=== PATIENT | female | born 1935 | race Caucasian/White ===

== ENCOUNTER 2019-06-09 21:43 | Inpatient (IN) | payer BC ==
[2019-06-09] MEDS ORDERED: CLINDAMYCIN 600MG PREMIX IVPB 600 MG/50 ML BAG IVPB ONE (22:45)
--- NOTE | 2019-06-09 22:50 | PDOC ---
History of Present Illness - General Chief Complaint: Injury Stated Complaint: LEG INJURY Time Seen by Provider: 06/09/19 21:59 - History of Present Illness Initial Comments: Ms. Abbasi is a 84 y/o female with PMH significant for a-fib (on xarelto) and CHF presenting today with bruising and redness of the right calf. Reports that she was sitting on her recliner when knocked over a heavy pyrex bowl filled with cereal around 1pm this afternoon. Reports that the bowel hit her on the medial tibia and again on the medial mid calf. Reports a small bruise to the medial aspect of the skin overlying the upper tibia, and a large bruise over the medial mid right calf. Reports that the bruise was growing throughout the afternoon, and in the evening she noticed that her right leg was red from the midfoot throughout the calf. Reports that yesterday her right leg appeared the same as her left leg. Denies fever, reports chills yesterday evening. Denies chest pain/shortness of breath. Denies abdominal pain. Denies urinary symptoms. Denies changes in stool. Ambulating at baseline. Past History - Past Medical History Allergies/Adverse Reactions: Allergies Allergy/AdvReac Type Severity Reaction Status Date / Time No Known Allergies Allergy Verified 06/09/19 21:46 Home Medications: Ambulatory Orders Rivaroxaban [Xarelto] 20 mg PO DAILY #0 tablet 10/19/11 Atorvastatin Ca [Lipitor] 20 mg PO HS 06/10/19 Clotrimazole 1 applic TP DAILY 06/10/19 Furosemide 40 mg PO DAILY 06/10/19 Potassium Chloride 20 meq PO DAILY 06/10/19 Anemia: No Asthma: No Cancer: Yes (LEFT BREAST) Cardiac Disorders: Yes ([place]) CVA: No COPD: No CHF: Yes Dementia: No Diabetes: No GI Disorders: No Disorders: No HTN: Yes Hypercholesterolemia: Yes Liver Disease: No Seizures: No Thyroid Disease: No - Surgical History Abdominal Surgery: No Appendectomy: Yes Cardiac Surgery: No Cholecystectomy: Yes Lung Surgery: No Neurologic Surgery: No Orthopedic Surgery: No - Immunization History Td Vaccination: No Immunization Up to Date: Yes - Psycho Social/Smoking Cessation Hx Smoking Status: No Smoking History: Never smoked Have you smoked in the past 12 months: No Number of Cigarettes Smoked Daily: 0 Information on smoking cessation initiated: No Hx Alcohol Use: No Drug/Substance Use Hx: No Substance Use Type: None Hx Substance Use Treatment: No Review of Systems - Review of Systems Comments:: GENERAL/CONSTITUTIONAL: No fever or chills. No weakness._ HEAD, EYES, EARS, NOSE AND THROAT: No change in vision. No change in hearing. No sore throat._ CARDIOVASCULAR: No chest pain or shortness of breath_ RESPIRATORY: Denies cough, hemoptysis_ GASTROINTESTINAL: No nausea, vomiting, diarrhea or constipation._ GENITOURINARY: No dysuria, frequency, or change in urination._ MUSCULOSKELETAL: Redness, bruising, and pain to the RLE. SKIN: No rash_ NEUROLOGIC: No headache, vertigo, loss of consciousness, or change in strength/ sensation._ ENDOCRINE: No increased thirst. No abnormal weight change_ HEMATOLOGIC/LYMPHATIC: No anemia, easy bleeding, or history of blood clots._ ALLERGIC/IMMUNOLOGIC: No hives or skin allergy._ *Physical Exam - Vital Signs Last Vital Signs Temp Pulse Resp BP Pulse Ox 97.6 F 71 18 122/60 99 06/09/19 21:46 06/09/19 21:46 06/09/19 21:46 06/09/19 21:46 06/09/19 21:46 - Physical Exam Comments: GENERAL: Awake, alert, and oriented to person/place/time, in no acute distress_ HEAD: No signs of trauma, normocephalic, atraumatic _ EYES: PERRLA, EOMI, sclera anicteric, conjunctiva clear_ ENT: Hearing grossly normal, nares patent, oropharynx clear without exudates. No uvular deviation. Moist mucosa_ NECK: Normal ROM, supple, no lymphadenopathy, JVD, or masses_ LUNGS: No distress, speaks in full sentences, clear to auscultation bilaterally _ HEART: Irregular, normal S1 and S2, no murmurs appreciated, peripheral pulses normal and equal bilaterally._ ABDOMEN: Soft, nontender, normoactive bowel sounds. No guarding, no rebound. No masses_ EXTREMITIES: RUE/LUE/LLE: Normal inspection, Normal range of motion. No clubbing or cyanosis. 1+ pitting edema in LLE. RLE: Inspection: Small ecchymosis < 1 cm over right lower knee. Large ecchymosis measuring approx. 6 cm by 4 cm over right medial aspect of thigh. TTP throughout extremity. no open wounds. Compartments soft and compressible, pain within proportion. Knee stable to anterior/posterior drawer and varus/valgus stress Sensation: SPLT DP, SP, Tib, Arcenio, Saph Motor: 5/5 EHL, 5/5 FHL, 5/5 TA, 5/5GS, 5/5 Quad, 5/5 Ham Vascular: 2+ DP/PT, all toes BCR <2 sec NEUROLOGICAL: Cranial nerves II through XII grossly intact. Normal speech, ambulating at baseline, no focal sensorimotor deficits _ SKIN: Erythema and swelling over RLE. ED Treatment Course - LABORATORY CBC & Chemistry Diagram: 06/11/19 07:15 06/11/19 07:15 - RADIOLOGY Radiology Studies Ordered: Category Date Time Status ANKLE & FOOT-RIGHT* [RAD] Stat Radiology 06/09/19 22:35 Ordered CHEST X-RAY PORTABLE* [RAD] Stat Radiology 06/09/19 22:33 Ordered KNEE 3 POS-RIGHT [RAD] Stat Radiology 06/09/19 22:35 Ordered LEG TIB/FIB-RIGHT [RAD] Stat Radiology 06/09/19 22:35 Ordered SOFT TISSUE EXTREMITY US [US] Stat Ultrasound 06/09/19 22:34 Ordered Medical Decision Making - Medical Decision Making 06/09/19 22:47 84F hx of a-fib (xarelto) and CHF. Presenting with bruising and erythema to the RLE. DDX includes cellulitis vs stasis dematitis vs gas gangrene. -cbc, cmp, coags -blood cx, wound cx -ekg, cxr for admission -XR right knee, tib/fib, ankle, foot -US RLE -clindamycin 600 06/09/19 23:49 US RLE shows a 3.9 cm x 1.3 cm x 3.2 cm heterogeneous collection in the right medial calf. Depending upon the clinical situation, this could represent blood, fluid/debris , purulent material/infection, or a combination thereof. 06/10/19 0115 EKG shows a-fib, 67 bpm, no ST elevation/depression, no axis deviation, QTc 431. 06/10/19 01:43 Self read of XR right knee, tib/fib, ankle/foot shows soft tissue swelling w/o bony involvement. 06/10/19 0200 D/w the hospitalist who agrees to accept the patient for admission. Discharge - Discharge Information Problems reviewed: Yes Clinical Impression/Diagnosis: Cellulitis of right leg Condition: Stable - Admission Yes - Follow up/Referral - Patient Discharge Instructions - Post Discharge Activity
--- NOTE | 2019-06-09 23:47 | PDOC ---
Documentation entered by Ye Sharp SCRIBE, acting as scribe for Heron Bhandari MD. Heron Bhandari MD: This documentation has been prepared by the Aron phipps Daniel, SCRIBE, under my direction and personally reviewed by me in its entirety. I confirm that the documentation accurately reflects all work, treatment, procedures, and medical decision making performed by me. Attending Attestation - Resident Resident Name: Blaine Becker - ED Attending Attestation I have performed the following: I have examined & evaluated the patient, The case was reviewed & discussed with the resident, I agree w/resident's findings & plan, Exceptions are as noted - HPI HPI: 06/09/19 22:34 The patient is an 84 year old female with a past medical history of afib ( xarelto) and CHF here today for evaluation of right leg bruising and edema. The patient reports that she dropped a pyrex bowl on her right leg today and noticed increased edema, warmth, and redness to that leg throughout the course of the day. Patient denies headache, lightheadedness. Denies fever, chills. Denies chest pain, shortness of breath. Denies nausea, vomiting, diarrhea, abdominal pain. Allergies: NKA PCP: Wade Martinez - Physicial Exam PE: 06/09/19 22:35 Vitals: Triage vital signs reviewed General Appearance: No acute distress, well nourished, well developed Head: Atraumatic Cardiac: Regular rate and rhythm, no murmurs, no rubs, no gallops Lungs: Clear to auscultation bilateral, good air movement bilaterally Abdomen: Soft, nondistended, nontender to palpation Extremities: Full range of motion to all extremities, no cyanosis, clubbing, or edema Skin: +redness, bruising, warmth, and edema to medial aspect of the right calf. Psych: Normal mood, normal affect 06/09/19 23:46 - Medical Decision Making 06/09/19 22:38 The patient is an 84 year old female with a past medical history of afib ( xarelto) and CHF here today for evaluation of right leg bruising and edema. 06/09/19 23:46 Patient is a she is in the operating call the operative follow-up to the OR patient with direct trauma to the lower extremity with bruising ecchymosis and redness warmth concerning for rapidly evolving cellulitis Patient unable to bear weight lives by herself not a safe discharge home will admit to hospital for IV antibiotics and further management
[2019-06-10 00:36] LABS: BASO % 0.2 % (0-2.0); EOS % 0.2 % (0-4.5); HEMATOCRIT 43.6 % (32.4-45.2); HEMOGLOBIN 14.7 GM/dL (10.7-15.3); LYMPH % 16.9 % (8-40); MCH 32.6 pg (25.7-33.7); MCHC 33.8 g/dl (32.0-36.0); MEAN CELL VOLUME 96.4 fl (80-96); MEAN PLT VOLUME 8.5 fl (7.5-11.1); MONO % 14.4 % (3.8-10.2); NEUT % 68.3 % (42.8-82.8); PLATELET COUNT 194 K/MM3 (134-434); RBC 4.52 M/mm3 (3.60-5.2); RDW 13.1 % (11.6-15.6); WHITE BLOOD COUNT 10.4 K/mm3 (4.0-10.0)
[2019-06-10 00:42] LABS: INR 3.32 (0.83-1.09); PROTHROMBIN TIME (PATIENT) 39.7 SEC (9.7-13.0)
--- NOTE | 2019-06-10 02:38 | HP ---
Admitting History and Physical - Primary Care Physician PCP: Dr. Strange - Admission Chief Complaint: Right Leg injury History of Present Illness: 84 year old female with PMHx HTN, HLD, A-fib (on xarelto) and CHF arrived to ER for bruising/hematoma and redness of the right leg. Patient reports that she was sitting on her recliner when knocked over a heavy pyrex bowl filled with cereal around 1pm this afternoon. Reports that the bowel hit her on the medial tibia and again on the medial mid calf. Reports a small bruise to the medial aspect of the skin overlying the upper tibia, and a large bruise over the medial mid right calf. Reports that the bruise was growing throughout the afternoon, and in the evening she noticed that her right leg was red from the midfoot throughout the calf. Reports that yesterday her right leg appeared the same as her left leg. Patient denies fever, reports chills yesterday evening. Denies chest pain/shortness of breath. Denies abdominal pain. Denies urinary symptoms. Denies changes in stool. Ambulating at baseline. History Source: Patient Limitations to Obtaining History: No Limitations - Past Medical History Cardiovascular: Yes: AFIB, CHF, HTN, Hyperlipdemia - Past Surgical History Past Surgical History: Yes: Appendectomy, Cholecystectomy - Smoking History Smoking history: Never smoked Have you smoked in the past 12 months: No Aproximately how many cigarettes per day: 0 - Alcohol/Substance Use Hx Alcohol Use: No History of Substance Use: reports: None - Social History ADL: Independent History of Recent Travel: No Home Medications - Allergies Allergies/Adverse Reactions: Allergies Allergy/AdvReac Type Severity Reaction Status Date / Time No Known Allergies Allergy Verified 06/09/19 21:46 - Home Medications Home Medications: Ambulatory Orders Rivaroxaban [Xarelto] 20 mg PO DAILY #0 tablet 10/19/11 Atorvastatin Ca [Lipitor] 20 mg PO HS 06/10/19 Clotrimazole 1 applic TP DAILY 06/10/19 Furosemide 40 mg PO DAILY 06/10/19 Potassium Chloride 20 meq PO DAILY 06/10/19 Family Medical History Family History: Denies Review of Systems - Review of Systems Constitutional: reports: No Symptoms Eyes: reports: No Symptoms HENT: reports: No Symptoms Neck: reports: No Symptoms Cardiovascular: reports: No Symptoms Respiratory: reports: No Symptoms Gastrointestinal: reports: No Symptoms Genitourinary: reports: No Symptoms Musculoskeletal: reports: Extremity Pain (Redness, bruising, and pain to the RLE.) Integumentary: reports: Erythema (Redness, bruising, and pain to the RLE.) Neurological: reports: No Symptoms Endocrine: reports: No Symptoms Hematology/Lymphatic: reports: No Symptoms Psychiatric: reports: No Symptoms Physical Examination Vital Signs: Vital Signs Temperature 97.6 F 06/09/19 21:46 Pulse Rate 71 06/09/19 21:46 Respiratory Rate 18 06/09/19 21:46 Blood Pressure 122/60 06/09/19 21:46 O2 Sat by Pulse Oximetry (%) 99 06/09/19 21:46 Constitutional: Yes: No Distress, Calm Eyes: Yes: Conjunctiva Clear, EOM Intact HENT: Yes: Atraumatic, Normocephalic Neck: Yes: Supple, Trachea Midline Cardiovascular: Yes: Regular Rate and Rhythm Respiratory: Yes: Regular, CTA Bilaterally Gastrointestinal: Yes: Normal Bowel Sounds, Soft Musculoskeletal: Yes: WNL Extremities: Yes: Other (Small ecchymosis < 1 cm over right lower knee. Large ecchymosis measuring approx. 6 cm by 4 cm over right medial aspect of thigh. TTP throughout extremity. no open wounds. Compartments soft and compressible, pain within proportion.) Edema: Yes Edema: LLE: 1+, RLE: 1+ Peripheral Pulses WNL: Yes Neurological: Yes: Alert, Oriented Labs: CBC, BMP 06/09/19 23:10 06/09/19 23:10 Imaging - Results Ultrasound: Report Reviewed (US RLE shows a 3.9 cm x 1.3 cm x 3.2 cm heterogeneous collection in the right medial calf.Depending upon the clinical situation, this could represent blood, fluid/debris, purulent material/ infection, or a combination) Problem List - Problems (1) Cellulitis of right leg Code(s): L03.115 - CELLULITIS OF RIGHT LOWER LIMB (2) Hematoma of right lower extremity Code(s): S80.11XA - CONTUSION OF RIGHT LOWER LEG, INITIAL ENCOUNTER (3) HTN (hypertension) Code(s): I10 - ESSENTIAL (PRIMARY) HYPERTENSION (4) CHF (congestive heart failure) Code(s): I50.9 - HEART FAILURE, UNSPECIFIED (5) A-fib Code(s): I48.91 - UNSPECIFIED ATRIAL FIBRILLATION (6) HLD (hyperlipidemia) Code(s): E78.5 - HYPERLIPIDEMIA, UNSPECIFIED Assessment/Plan 84 year old female with PMHx HTN, HLD, A-fib (on xarelto) and CHF arrived to ER for bruising/hematoma and redness of the right leg. # cellulitits # right lower leg hematoma - wcb: 10.4 - US RLE shows a 3.9 cm x 1.3 cm x 3.2 cm heterogeneous collection in the right medial calf.Depending upon the clinical situation, this could represent blood, fluid/debris, purulent material/infection, or a combination - XR Ankle/ foot: no acute fx - XR knee/tib/fib: no acute fx - In ED given clindamycin x1, will continue - Pain management - elevated extremity - follow up wound, blood cx - follow up ID # HTN/HLD - Hyzaar 50-12.5 Tablet 1 each PO DAILY - Metoprolol Succinate 50 mg PO BID - monitor BP # A-fib - Rivaroxaban 20 mg PO DAILY # CHF - fluid restriction - monitor I&O - no meds listed, follow up pharmacy in AM to verify Diet: HOLLIE/NCS Visit type - Emergency Visit Emergency Visit: Yes ED Registration Date: 06/10/19 Care time: The patient presented to the Emergency Department on the above date and was hospitalized for further evaluation of their emergent condition. - New Patient This patient is new to me today: Yes Date on this admission: 06/10/19 - Critical Care Critical Care patient: No
[2019-06-10 04:14] LABS: ALBUMIN 3.2 g/dl (3.4-5.0); BILIRUBIN,TOTAL 0.7 mg/dL (0.2-1); BLOOD UREA NITROGEN 19.1 mg/dL (7-18); CALCIUM 8.6 mg/dL (8.5-10.1); CREATININE 0.9 mg/dL (0.55-1.3); POTASSIUM 3.9 mmol/L (3.5-5.1); TOT PROT 6.3 g/dl (6.4-8.2)
[2019-06-10] MEDS ORDERED: DICLOFENAC SODIUM 75 MG TABLET.DR PO SCH (07:00)
[2019-06-10] MEDS ORDERED: CLINDAMYCIN 300 MG PREMIX IVPB 300 MG/50 ML BAG IVPB SCH (10:00)
[2019-06-10] MEDS ORDERED: HEPARIN NA (PORCINE) 5,000 UNITS/ML 1ML VIAL SQ SCH (10:00)
[2019-06-10] MEDS ORDERED: LOSARTAN 50MG/HCTZ 12.5MG 1 TAB (FP) PO SCH (10:00)
[2019-06-10] MEDS: SENNOSIDES 8.6MG TABLET (FP) PO SCH ×2 (10:39→22:01)
[2019-06-10] MEDS ORDERED: LOSARTAN POTASSIUM 50 MG TABLET (FP) PO SCH (10:45)
[2019-06-10] MEDS: oxyCODONE HCL 5 MG TABLET PO PRN (10:48)
[2019-06-10] MEDS ORDERED: HYDROCHLOROTHIAZIDE 12.5 MG CAPSULE (FP) PO SCH (11:00)
[2019-06-10] MEDS ORDERED: INSULIN (NOVOLOG) ASPART 100 UNITS/ML 10ML VIAL ONE (11:47)
--- NOTE | 2019-06-10 12:29 | PN ---
Progress Note, Physician History of Present Illness: pt seen/ examined chart reviewed wake/ comfortable wants to see cardiology-- says did not see > 2 years denies cp/sob denies abd pain - Current Medication List Current Medications: Active Medications Acetaminophen (Tylenol -) 650 mg PO Q4H PRN PRN Reason: PAIN LEVEL 1-5 Furosemide (Lasix -) 40 mg PO DAILY [facility] Clindamycin Phosphate (Cleocin 300 Mg Premix Ivpb) 300 mg in 50 mls @ 100 mls/ hr IVPB Q8H-IV [facility] Last Admin: 06/10/19 11:37 Dose: 100 mls/hr Metoprolol Succinate (Toprol Xl -) 50 mg PO BID [facility] Last Admin: 06/10/19 10:40 Dose: 50 mg Oxycodone HCl (Roxicodone -) 10 mg PO Q6H PRN PRN Reason: PAIN LEVEL 6-10 Last Admin: 06/10/19 10:48 Dose: 10 mg Rivaroxaban (Xarelto) 20 mg PO DAILY@1800 [facility] Senna (Senna -) 1 tab PO BID [facility] Last Admin: 06/10/19 10:39 Dose: 1 tab - Objective Vital Signs: Vital Signs Temperature 97.6 F 06/09/19 21:46 Pulse Rate 77 06/10/19 04:37 Respiratory Rate 18 06/10/19 04:37 Blood Pressure 130/69 06/10/19 04:37 O2 Sat by Pulse Oximetry (%) 99 06/10/19 04:37 Constitutional: Yes: No Distress, Obese Eyes: Yes: Conjunctiva Clear Neck: Yes: Supple Cardiovascular: Yes: Pulse Irregular Respiratory: Yes: Diminished Gastrointestinal: Yes: Abdomen, Obese Extremities: Yes: Erythema Neurological: Yes: Alert Labs: CBC, BMP 06/09/19 23:10 06/10/19 03:28 INR, PTT INR 3.32 (0.83-1.09) H 06/09/19 23:10 Problem List - Problems (1) Cellulitis of right leg Assessment/Plan: abx Problems reviewed: Yes Code(s): L03.115 - CELLULITIS OF RIGHT LOWER LIMB (2) HLD (hyperlipidemia) Assessment/Plan: Not on meds monitor Code(s): E78.5 - HYPERLIPIDEMIA, UNSPECIFIED (3) HTN (hypertension) Assessment/Plan: pt says and meds reviewed takes lasix 40 mg daily Toprol xl 20 mg daily Dont take Losartan and Hctz-- Monitor Problems reviewed: Yes Code(s): I10 - ESSENTIAL (PRIMARY) HYPERTENSION (4) Hematoma of right lower extremity Problems reviewed: Yes Code(s): S80.11XA - CONTUSION OF RIGHT LOWER LEG, INITIAL ENCOUNTER Qualifiers: Encounter type: initial encounter Qualified Code(s): S80.11XA - Contusion of right lower leg, initial encounter (5) CHF (congestive heart failure) Assessment/Plan: stable wants to see cardiology-- requested Problems reviewed: Yes Code(s): I50.9 - HEART FAILURE, UNSPECIFIED (6) A-fib Assessment/Plan: On xarelto Problems reviewed: Yes Code(s): I48.91 - UNSPECIFIED ATRIAL FIBRILLATION Qualifiers: Atrial fibrillation type: unspecified chronic Qualified Code(s): I48.20 - Chronic atrial fibrillation, unspecified; I48.2 - Chronic atrial fibrillation
--- NOTE | 2019-06-10 12:57 | CON.ID ---
Consult Consult Specialty:: infectious diseases Referred by:: Alexandr Reason for Consultation:: cellulitis of the leg - History of Present Illness Chief Complaint: pain ,swelling and redness of the leg History of Present Illness: 84 year old female with PMHx HTN, HLD, A-fib (on xarelto) and CHF arrived to ER for bruising/hematoma and redness of the right leg. Patient reports that she was sitting on her recliner when knocked over a heavy pyrex bowl filled with cereal around 1pm this afternoon. Reports that the bowel hit her on the medial tibia and again on the medial mid calf. Reports a small bruise to the medial aspect of the skin overlying the upper tibia, and a large bruise over the medial mid right calf. Reports that the bruise was growing throughout the afternoon, and in the evening she noticed that her right leg was red from the midfoot throughout the calf. Reports that yesterday her right leg appeared the same as her left leg. Patient denies fever, reports chills yesterday evening. Denies chest pain/shortness of breath. Denies abdominal pain. Denies urinary symptoms. Denies changes in stool. Ambulating at baseline. patient also mentions that her legs weep - History Source History Provided By: Patient Limitations to Obtaining History: No Limitations - Past Medical History Cardio/Vascular: Yes: AFIB, CHF, HTN, Hyperlipdemia - Past Surgical History Past Surgical History: Yes: Appendectomy, Cholecystectomy - Alcohol/Substance Use Hx Alcohol Use: No History of Substance Use: reports: None - Smoking History Smoking history: Never smoked Have you smoked in the past 12 months: No Aproximately how many cigarettes per day: 0 - Social History ADL: Independent History of Recent Travel: No Home Medications - Allergies Allergies/Adverse Reactions: Allergies Allergy/AdvReac Type Severity Reaction Status Date / Time No Known Allergies Allergy Verified 06/09/19 21:46 - Home Medications Home Medications: Ambulatory Orders Rivaroxaban [Xarelto] 20 mg PO DAILY #0 tablet 10/19/11 Atorvastatin Ca [Lipitor] 20 mg PO HS 06/10/19 Clotrimazole 1 applic TP DAILY 06/10/19 Furosemide 40 mg PO DAILY 06/10/19 Potassium Chloride 20 meq PO DAILY 06/10/19 Review of Systems - Review of Systems Constitutional: reports: No Symptoms Eyes: reports: No Symptoms HENT: reports: No Symptoms Neck: reports: No Symptoms Cardiovascular: reports: No Symptoms Respiratory: reports: No Symptoms Gastrointestinal: reports: No Symptoms Genitourinary: reports: No Symptoms Integumentary: reports: Bruising, Change in Color, Erythema Neurological: reports: No Symptoms Endocrine: reports: No Symptoms Hematology/Lymphatic: reports: No Symptoms Psychiatric: reports: No Symptoms Physical Exam Vital Signs: Vital Signs Temperature 97.6 F 06/09/19 21:46 Pulse Rate 77 06/10/19 04:37 Respiratory Rate 18 06/10/19 04:37 Blood Pressure 130/69 06/10/19 04:37 O2 Sat by Pulse Oximetry (%) 99 06/10/19 04:37 Constitutional: Yes: Well Nourished, Mild Distress, Obese Eyes: Yes: Conjunctiva Clear HENT: Yes: Atraumatic, Normocephalic Neck: Yes: Supple, Trachea Midline Cardiovascular: Yes: Pulse Irregular Respiratory: Yes: Regular, CTA Bilaterally Gastrointestinal: Yes: Normal Bowel Sounds, Soft Musculoskeletal: Yes: WNL Extremities: Yes: Erythema, Other (hematoma of the leg) Integumentary: Yes: Bruising, Erythema, Other Neurological: Yes: Alert, Oriented Psychiatric: Yes: Alert, Oriented Labs: CBC, BMP 06/09/19 23:10 06/10/19 03:28 Imaging - Results Chest X-ray: Report Reviewed, Image Reviewed X-ray: Report Reviewed, Image Reviewed Ultrasound: Report Reviewed, Image Reviewed Assessment/Plan Problem List - Problems (1) Cellulitis of right leg Problems reviewed: Yes Code(s): L03.115 - CELLULITIS OF RIGHT LOWER LIMB (2) HLD (hyperlipidemia) Code(s): E78.5 - HYPERLIPIDEMIA, UNSPECIFIED (3) HTN (hypertension) Problems reviewed: Yes Code(s): I10 - ESSENTIAL (PRIMARY) HYPERTENSION (4) Hematoma of right lower extremity Problems reviewed: Yes Code(s): S80.11XA - CONTUSION OF RIGHT LOWER LEG, INITIAL ENCOUNTER Qualifiers: Encounter type: initial encounter Qualified Code(s): S80.11XA - Contusion of right lower leg, initial encounter (5) CHF (congestive heart failure) Problems reviewed: Yes Code(s): I50.9 - HEART FAILURE, UNSPECIFIED (6) A-fib Code(s): I48.91 - UNSPECIFIED ATRIAL FIBRILLATION Qualifiers: Atrial fibrillation type: unspecified chronic Qualified Code(s): I48.20 - Chronic atrial fibrillation, unspecified; I48.2 - Chronic atrial fibrillation plan i am going to hold abx and monitor as i think reaction to the injury will d.w the team if leg becomes worse will start iv elevation of leg might need aspiration
--- NOTE | 2019-06-10 16:58 | EKG ---
Test Reason : Blood Pressure : / mmHG Vent. Rate : 067 BPM Atrial Rate : 120 BPM P-R Int : 000 ms QRS Dur : 070 ms QT Int : 408 ms P-R-T Axes : 000 000 -17 degrees QTc Int : 431 ms ATRIAL FIBRILLATION NONSPECIFIC ST ABNORMALITY ABNORMAL ECG WHEN COMPARED WITH ECG OF 28-DEC-2011 11:57, CRITERIA FOR SEPTAL INFARCT ARE NO LONGER PRESENT Confirmed by MJ TSAI MD ([id number]) on 06/10/2019 4:57:50 PM Referred By: Confirmed By:MJ TSAI MD
[2019-06-10] MEDS: RIVAROXABAN 20 MG TABLET PO SCH (17:27)
--- NOTE | 2019-06-10 21:35 | PN ---
Progress Note, Physician - Current Medication List Current Medications: Active Medications Acetaminophen (Tylenol -) 650 mg PO Q4H PRN PRN Reason: PAIN LEVEL 1-5 Furosemide (Lasix -) 40 mg PO DAILY [facility] Metoprolol Succinate (Toprol Xl -) 50 mg PO BID [facility] Last Admin: 06/10/19 10:40 Dose: 50 mg Oxycodone HCl (Roxicodone -) 10 mg PO Q6H PRN PRN Reason: PAIN LEVEL 6-10 Last Admin: 06/10/19 10:48 Dose: 10 mg Rivaroxaban (Xarelto) 20 mg PO DAILY@1800 [facility] Last Admin: 06/10/19 17:27 Dose: 20 mg Senna (Senna -) 1 tab PO BID [facility] Last Admin: 06/10/19 10:39 Dose: 1 tab - Objective Vital Signs: Vital Signs Temperature 98.6 F 06/10/19 15:18 Pulse Rate 87 06/10/19 15:18 Respiratory Rate 16 06/10/19 10:00 Blood Pressure 112/63 06/10/19 15:18 O2 Sat by Pulse Oximetry (%) 99 06/10/19 04:37 Labs: CBC, BMP 06/09/19 23:10 06/10/19 03:28 INR, PTT INR 3.32 (0.83-1.09) H 06/09/19 23:10
--- NOTE | 2019-06-10 21:36 | CON.CARD ---
Consult Consult Specialty:: cardiology Reason for Consultation:: [place]; wants to see her perfumer (Dr. Meadows); has not seen him in 2 years. - History of Present Illness Chief Complaint: Pt A&OX3; no cheat pain or dyspnea; pain at site of right LE trauma History of Present Illness: Ms. Abbasi is a 84 y/o white female with PMH significant for a-fib (on carvedilol, xarelto) diastolic CHF (2012 ECHO), HTN, hyperlipidemia, obesity, sedentary lifestyle, anxiety, presenting today with bruising and redness of the right calf. Reports that she was sitting on her recliner when knocked over a heavy pyrex bowl filled with cereal around 1pm this afternoon. Reports that the bowel hit her on the medial tibia and again on the medial mid calf. Reports a small bruise to the medial aspect of the skin overlying the upper tibia, and a large bruise over the medial mid right calf. Reports that the bruise was growing throughout the afternoon, and in the evening she noticed that her right leg was red from the midfoot throughout the calf. Reports that yesterday her right leg appeared the same as her left leg. - History Source History Provided By: Patient, Medical Record Limitations to Obtaining History: No Limitations - Past Medical History Cardio/Vascular: Yes: AFIB, CHF, HTN, Hyperlipdemia Pulmonary: No: Asthma Reproductive: Yes: Postmenopausal ...: No - Past Surgical History Past Surgical History: Yes: Appendectomy, Cholecystectomy - Alcohol/Substance Use Hx Alcohol Use: No History of Substance Use: reports: None - Smoking History Smoking history: Never smoked Have you smoked in the past 12 months: No Aproximately how many cigarettes per day: 0 - Social History ADL: Independent History of Recent Travel: No Home Medications - Allergies Allergies/Adverse Reactions: Allergies Allergy/AdvReac Type Severity Reaction Status Date / Time No Known Allergies Allergy Verified 06/09/19 21:46 - Home Medications Home Medications: Ambulatory Orders Rivaroxaban [Xarelto] 20 mg PO DAILY #0 tablet 10/19/11 Atorvastatin Ca [Lipitor] 20 mg PO HS 06/10/19 Clotrimazole 1 applic TP DAILY 06/10/19 Furosemide 40 mg PO DAILY 06/10/19 Potassium Chloride 20 meq PO DAILY 06/10/19 Family Medical History Family History: Denies Review of Systems - Review of Systems Constitutional: reports: Weakness Eyes: reports: No Symptoms HENT: reports: No Symptoms Neck: reports: No Symptoms Cardiovascular: reports: No Symptoms Respiratory: reports: SOB on Exertion Gastrointestinal: reports: No Symptoms Genitourinary: reports: No Symptoms Breasts: reports: No Symptoms Reported Musculoskeletal: reports: Muscle Pain Integumentary: reports: Wound Neurological: reports: No Symptoms Endocrine: reports: No Symptoms Hematology/Lymphatic: reports: No Symptoms Psychiatric: reports: Anxiety - Risk Factors Known Risk Factors: Yes: Hypercholesterolemia, Hypertension, Physical Inactivity , Other (AF) Vital Signs: Vital Signs Temperature 98.6 F 06/10/19 15:18 Pulse Rate 87 06/10/19 15:18 Respiratory Rate 16 06/10/19 10:00 Blood Pressure 112/63 06/10/19 15:18 O2 Sat by Pulse Oximetry (%) 99 06/10/19 04:37 Constitutional: Yes: Obese Eyes: Yes: WNL HENT: Yes: WNL Neck: Yes: WNL Respiratory: Yes: WNL Gastrointestinal: Yes: WNL Renal/: No: Anuria Cardiovascular: Yes: Pulse Irregular JVD: No Carotid Bruit: No PMI: Non-Displaced Heart Sounds: Yes: S1 (varies in intensity) Murmur: Yes: Systolic Murmur, Grade 1 Musculoskeletal: Yes: Muscle Pain Extremities: Yes: Cool Edema: Yes Peripheral Pulses WNL: Yes Integumentary: Yes: Bruising Neurological: Yes: WNL Psychiatric: Yes: Alert, Oriented, Other (anxious) - Other Data Labs, Other Data: CBC, BMP 06/09/19 23:10 06/10/19 03:28 INR, PTT INR 3.32 (0.83-1.09) H 06/09/19 23:10 Imaging - Results Chest X-ray: Image Reviewed Cat Scan: Image Reviewed EKG: Image Reviewed Problem List - Problems (1) Obesity Code(s): E66.9 - OBESITY, UNSPECIFIED (2) Sedentary lifestyle Code(s): Z91.89 - [facility] PERSONAL RISK FACTORS, NOT ELSEWHERE CLASSIFIED (3) A-fib Assessment/Plan: On metoprolol ER for HR control. On rivaroxaban for anticoagulation. ECHO pending. Now with hematoma of RLE due to trauma (heavy bowl fell on her leg). Code(s): I48.91 - UNSPECIFIED ATRIAL FIBRILLATION Qualifiers: Atrial fibrillation type: unspecified chronic Qualified Code(s): I48.20 - Chronic atrial fibrillation, unspecified; I48.2 - Chronic atrial fibrillation (4) CHF (congestive heart failure) Assessment/Plan: ECHO pending for LVEF. Dyspnea on exertion; sedentary; obese. On metoprolol ER and furosemide. F/u BUN/Cr, electrolytes, daily weight, Is and Os. Pt will f/u with Dr. Meadows, whom she has not seen in 2 years. Code(s): I50.9 - HEART FAILURE, UNSPECIFIED (5) Cellulitis of right leg Code(s): L03.115 - CELLULITIS OF RIGHT LOWER LIMB (6) HLD (hyperlipidemia) Code(s): E78.5 - HYPERLIPIDEMIA, UNSPECIFIED (7) HTN (hypertension) Code(s): I10 - ESSENTIAL (PRIMARY) HYPERTENSION (8) Hematoma of right lower extremity Code(s): S80.11XA - CONTUSION OF RIGHT LOWER LEG, INITIAL ENCOUNTER Qualifiers: Encounter type: initial encounter Qualified Code(s): S80.11XA - Contusion of right lower leg, initial encounter (9) Anxiety Code(s): F41.9 - ANXIETY DISORDER, UNSPECIFIED
[2019-06-10] MEDS: ACETAMINOPHEN 325 MG TABLET (FP) PO PRN (22:02)
[2019-06-11 08:22] LABS: BASO % 0.3 % (0-2.0); EOS % 0.6 % (0-4.5); HEMATOCRIT 38.8 % (32.4-45.2); LYMPH % 27.4 % (8-40); MCH 32.7 pg (25.7-33.7); MCHC 33.5 g/dl (32.0-36.0); MEAN CELL VOLUME 97.3 fl (80-96); MEAN PLT VOLUME 8.4 fl (7.5-11.1); MONO % 12.9 % (3.8-10.2); NEUT % 58.8 % (42.8-82.8); PLATELET COUNT 188 K/MM3 (134-434); RBC 3.98 M/mm3 (3.60-5.2); RDW 12.8 % (11.6-15.6)
[2019-06-11 08:46] LABS: CHOLESTEROL 180 mg/dL (50-200); HDL CHOLESTEROL 57 mg/dL (40-60); LDL CHOLESTEROL (ONLY SJRH) 97 mg/dL (5-100); TRIGLYCERIDES 94 mg/dL (0-150)
[2019-06-11 08:53] LABS: BILIRUBIN,TOTAL 0.4 mg/dL (0.2-1); BLOOD UREA NITROGEN 19.4 mg/dL (7-18); CALCIUM 8.8 mg/dL (8.5-10.1); CREATININE 0.8 mg/dL (0.55-1.3); POTASSIUM 4.3 mmol/L (3.5-5.1); TOT PROT 6.2 g/dl (6.4-8.2)
[2019-06-11] MEDS: ACETAMINOPHEN 325 MG TABLET (FP) PO PRN ×2 (10:09→18:25)
[2019-06-11] MEDS: SENNOSIDES 8.6MG TABLET (FP) PO SCH ×2 (10:10→21:17)
[2019-06-11] MEDS: FUROSEMIDE 40 MG TABLET (FP) PO SCH (10:10)
--- NOTE | 2019-06-11 10:57 | PN ---
Progress Note, Physician History of Present Illness: stable leg looks better - Current Medication List Current Medications: Active Medications Acetaminophen (Tylenol -) 650 mg PO Q4H PRN PRN Reason: PAIN LEVEL 1-5 Last Admin: 06/11/19 10:09 Dose: 650 mg Furosemide (Lasix -) 40 mg PO DAILY [facility] Last Admin: 06/11/19 10:10 Dose: 40 mg Metoprolol Succinate (Toprol Xl -) 50 mg PO BID [facility] Last Admin: 06/11/19 10:10 Dose: 50 mg Oxycodone HCl (Roxicodone -) 10 mg PO Q6H PRN PRN Reason: PAIN LEVEL 6-10 Last Admin: 06/10/19 10:48 Dose: 10 mg Rivaroxaban (Xarelto) 20 mg PO DAILY@1800 [facility] Last Admin: 06/10/19 17:27 Dose: 20 mg Senna (Senna -) 1 tab PO BID [facility] Last Admin: 06/11/19 10:10 Dose: 1 tab - Objective Vital Signs: Vital Signs Temperature 97.9 F 06/11/19 09:58 Pulse Rate 78 06/11/19 09:58 Respiratory Rate 19 06/11/19 09:58 Blood Pressure 134/73 06/11/19 09:58 O2 Sat by Pulse Oximetry (%) 94 L 06/11/19 09:00 Constitutional: Yes: No Distress, Calm Cardiovascular: Yes: S1, S2 Respiratory: Yes: Regular, CTA Bilaterally Gastrointestinal: Yes: Normal Bowel Sounds, Soft Musculoskeletal: Yes: WNL Extremities: Yes: Other (hematoma of the leg) Neurological: Yes: Alert, Oriented Psychiatric: Yes: Alert, Oriented Labs: CBC, BMP 06/11/19 07:15 06/11/19 07:15 INR, PTT INR 3.32 (0.83-1.09) H 06/09/19 23:10 Assessment/Plan Problem List - Problems (1) Cellulitis of right leg Problems reviewed: Yes Code(s): L03.115 - CELLULITIS OF RIGHT LOWER LIMB (2) HLD (hyperlipidemia) Code(s): E78.5 - HYPERLIPIDEMIA, UNSPECIFIED (3) HTN (hypertension) Problems reviewed: Yes Code(s): I10 - ESSENTIAL (PRIMARY) HYPERTENSION (4) Hematoma of right lower extremity Problems reviewed: Yes Code(s): S80.11XA - CONTUSION OF RIGHT LOWER LEG, INITIAL ENCOUNTER Qualifiers: Encounter type: initial encounter Qualified Code(s): S80.11XA - Contusion of right lower leg, initial encounter (5) CHF (congestive heart failure) Problems reviewed: Yes Code(s): I50.9 - HEART FAILURE, UNSPECIFIED (6) A-fib Code(s): I48.91 - UNSPECIFIED ATRIAL FIBRILLATION Qualifiers: Atrial fibrillation type: unspecified chronic Qualified Code(s): I48.20 - Chronic atrial fibrillation, unspecified; I48.2 - Chronic atrial fibrillation plan continue current mgmt elevation of the leg
--- NOTE | 2019-06-11 11:26 | PN ---
Progress Note, Physician History of Present Illness: Right tender ashley hematoma, denies dyspnea, orthopnea, chest pain, palpitations. - Current Medication List Current Medications: Active Medications Acetaminophen (Tylenol -) 650 mg PO Q4H PRN PRN Reason: PAIN LEVEL 1-5 Last Admin: 06/11/19 10:09 Dose: 650 mg Furosemide (Lasix -) 40 mg PO DAILY [facility] Last Admin: 06/11/19 10:10 Dose: 40 mg Metoprolol Succinate (Toprol Xl -) 50 mg PO BID [facility] Last Admin: 06/11/19 10:10 Dose: 50 mg Oxycodone HCl (Roxicodone -) 10 mg PO Q6H PRN PRN Reason: PAIN LEVEL 6-10 Last Admin: 06/10/19 10:48 Dose: 10 mg Rivaroxaban (Xarelto) 20 mg PO DAILY@1800 [facility] Last Admin: 06/10/19 17:27 Dose: 20 mg Senna (Senna -) 1 tab PO BID [facility] Last Admin: 06/11/19 10:10 Dose: 1 tab - Objective Vital Signs: Vital Signs Temperature 97.9 F 06/11/19 09:58 Pulse Rate 78 06/11/19 09:58 Respiratory Rate 19 06/11/19 09:58 Blood Pressure 134/73 06/11/19 09:58 O2 Sat by Pulse Oximetry (%) 94 L 06/11/19 09:00 Constitutional: Yes: No Distress, Calm Neck: Yes: Supple Cardiovascular: Yes: Pulse Irregular Respiratory: Yes: Regular, CTA Bilaterally Gastrointestinal: Yes: Normal Bowel Sounds, Soft, Abdomen, Obese Edema: No Integumentary: Yes: Bruising (RLE) Labs: CBC, BMP 06/11/19 07:15 06/11/19 07:15 INR, PTT INR 3.32 (0.83-1.09) H 06/09/19 23:10 Assessment/Plan - Problems (1) Obesity Code(s): E66.9 - OBESITY, UNSPECIFIED (2) Sedentary lifestyle Code(s): Z91.89 - [facility] PERSONAL RISK FACTORS, NOT ELSEWHERE CLASSIFIED (3) A-fib Assessment/Plan: On metoprolol ER 50 bid for HR control. On rivaroxaban 20 qd for anticoagulation. ECHO pending. Now with hematoma of RLE due to trauma (heavy bowl fell on her leg). Code(s): I48.91 - UNSPECIFIED ATRIAL FIBRILLATION Qualifiers: Atrial fibrillation type: unspecified chronic Qualified Code(s): I48.20 - Chronic atrial fibrillation, unspecified; I48.2 - Chronic atrial fibrillation (4) CHF (congestive heart failure) Assessment/Plan: ECHO pending for LVEF. Dyspnea on exertion; sedentary; obese. On metoprolol ER 50 bid and furosemide 40 qd. F/u BUN/Cr, electrolytes, daily weight, Is and Os. Pt will f/u with Dr. Meadows, whom she has not seen in 2 years. Code(s): I50.9 - HEART FAILURE, UNSPECIFIED (5) Cellulitis of right leg Code(s): L03.115 - CELLULITIS OF RIGHT LOWER LIMB D/renee empiric course of clindamycin (6) HLD (hyperlipidemia) Code(s): E78.5 - HYPERLIPIDEMIA, UNSPECIFIED (7) HTN (hypertension) Code(s): I10 - ESSENTIAL (PRIMARY) HYPERTENSION (8) Hematoma of right lower extremity Code(s): S80.11XA - CONTUSION OF RIGHT LOWER LEG, INITIAL ENCOUNTER Qualifiers: Encounter type: initial encounter Qualified Code(s): S80.11XA - Contusion of right lower leg, initial encounter (9) Anxiety Code(s): F41.9 - ANXIETY DISORDER, UNSPECIFIED
--- NOTE | 2019-06-11 15:01 | PN ---
Progress Note, Physician History of Present Illness: pt seen/ examined chart reviewed/ all consults noted Awake/ comfortable feels better denies cp/sob denies abd pain - Current Medication List Current Medications: Active Medications Acetaminophen (Tylenol -) 650 mg PO Q4H PRN PRN Reason: PAIN LEVEL 1-5 Last Admin: 06/11/19 10:09 Dose: 650 mg Furosemide (Lasix -) 40 mg PO DAILY [facility] Last Admin: 06/11/19 10:10 Dose: 40 mg Metoprolol Succinate (Toprol Xl -) 50 mg PO BID [facility] Last Admin: 06/11/19 10:10 Dose: 50 mg Oxycodone HCl (Roxicodone -) 10 mg PO Q6H PRN PRN Reason: PAIN LEVEL 6-10 Last Admin: 06/10/19 10:48 Dose: 10 mg Rivaroxaban (Xarelto) 20 mg PO DAILY@1800 [facility] Last Admin: 06/10/19 17:27 Dose: 20 mg Senna (Senna -) 1 tab PO BID [facility] Last Admin: 06/11/19 10:10 Dose: 1 tab - Objective Vital Signs: Vital Signs Temperature 98.5 F 06/11/19 13:31 Pulse Rate 78 06/11/19 13:31 Respiratory Rate 18 06/11/19 13:31 Blood Pressure 114/70 06/11/19 13:31 O2 Sat by Pulse Oximetry (%) 94 L 06/11/19 09:00 Constitutional: Yes: No Distress, Calm, Obese Eyes: Yes: Conjunctiva Clear Neck: Yes: Supple Cardiovascular: Yes: Pulse Irregular Respiratory: Yes: Diminished Gastrointestinal: Yes: Soft, Abdomen, Obese Edema: RLE: 2+ (rle-- erythema/ induration/ swelling +) Peripheral Pulses WNL: Yes Neurological: Yes: Alert Labs: CBC, BMP 06/11/19 07:15 06/11/19 07:15 INR, PTT INR 3.32 (0.83-1.09) H 06/09/19 23:10 Problem List - Problems (1) Cellulitis of right leg Assessment/Plan: abx -- d/c ed by i/d may need i/d will consult surgery also. Problems reviewed: Yes Code(s): L03.115 - CELLULITIS OF RIGHT LOWER LIMB (2) HLD (hyperlipidemia) Assessment/Plan: Lipid profile -ok Problems reviewed: Yes Code(s): E78.5 - HYPERLIPIDEMIA, UNSPECIFIED (3) HTN (hypertension) Assessment/Plan: Monitor Problems reviewed: Yes Code(s): I10 - ESSENTIAL (PRIMARY) HYPERTENSION (4) Hematoma of right lower extremity Problems reviewed: Yes Code(s): S80.11XA - CONTUSION OF RIGHT LOWER LEG, INITIAL ENCOUNTER Qualifiers: Encounter type: initial encounter Qualified Code(s): S80.11XA - Contusion of right lower leg, initial encounter (5) CHF (congestive heart failure) Assessment/Plan: Cardiology following Echo Code(s): I50.9 - HEART FAILURE, UNSPECIFIED (6) A-fib Problems reviewed: Yes Code(s): I48.91 - UNSPECIFIED ATRIAL FIBRILLATION Qualifiers: Atrial fibrillation type: unspecified chronic Qualified Code(s): I48.20 - Chronic atrial fibrillation, unspecified; I48.2 - Chronic atrial fibrillation
--- NOTE | 2019-06-11 16:27 | ECHO ---
Name: CHACHO, MAIDA A Exam:Adult Echocardiogram Study Date: 06/11/2019 03:22 PM Age: 84 yrs BP: 3/ mmHg MMode/2D Measurements & Calculations RV S Emanuel: 8.2 cm/sec Doppler Measurements & Calculations Ao V2 max: 102.3 cm/sec LV V1 max P.4 mmHg Ao max P.2 mmHg LV V1 max: 77.0 cm/sec PA V2 max: 117.0 cm/sec PA max P.5 mmHg Procedure A complete two-dimensional transthoracic echocardiogram was performed (2D, M-mode, Doppler and color flow Doppler). Severely limimed study. Left Ventricle The left ventricle is normal in size. Left ventricular systolic function is normal. Ejection Fraction = 55- 60%. No regional wall motion abnormalities noted. Right Ventricle The right ventricle is not well visualized. Atria LA appears enlarged on apical 4 chamber view. Right atrium not well visualized. Mitral Valve The mitral valve is normal in structure and function. There is mild mitral regurgitation. Tricuspid Valve The tricuspid valve is normal in structure and function. There is mild tricuspid regurgitation. Aortic Valve There is mild aortic sclerosis.;. Mild aortic regurgitation. Pulmonic Valve The pulmonic valve is not well visualized. Great Vessels The aortic root is normal size. Pericardium/Pleura There is no pericardial effusion. Interpretation Summary Severely limimed study The left ventricle is normal in size. Left ventricular systolic function is normal. No regional wall motion abnormalities noted. Ejection Fraction = 55-60%. The right ventricle is not well visualized. LA appears enlarged on apical 4 chamber view There is mild mitral regurgitation. There is mild tricuspid regurgitation. Mild aortic regurgitation. There is mild aortic sclerosis. There is no pericardial effusion. García Velásquez MD 06/11/2019 04:27 PM
[2019-06-11] MEDS: RIVAROXABAN 20 MG TABLET PO SCH (18:27)
[2019-06-12] MEDS: ACETAMINOPHEN 325 MG TABLET (FP) PO PRN ×3 (06:59→18:47)
[2019-06-12] MEDS ORDERED: PT OWN MED DRAWER 7, Y5N ONE (08:53)
[2019-06-12] MEDS: oxyCODONE HCL 5 MG TABLET PO PRN ×2 (10:26→18:48)
[2019-06-12] MEDS: FUROSEMIDE 40 MG TABLET (FP) PO SCH (10:27)
[2019-06-12] MEDS: SENNOSIDES 8.6MG TABLET (FP) PO SCH ×3 (10:27→21:52)
--- NOTE | 2019-06-12 10:27 | PN ---
Progress Note, Physician Chief Complaint: Events noted Feeling better History of Present Illness: Patient was seen and examined. Awake and alert. Chart was reviewed Denies chest pain or palpitations - Current Medication List Current Medications: Active Medications Acetaminophen (Tylenol -) 650 mg PO Q4H PRN PRN Reason: PAIN LEVEL 1-5 Last Admin: 06/12/19 06:59 Dose: 650 mg Furosemide (Lasix -) 40 mg PO DAILY [facility] Last Admin: 06/11/19 10:10 Dose: 40 mg Metoprolol Succinate (Toprol Xl -) 50 mg PO BID [facility] Last Admin: 06/11/19 21:17 Dose: 50 mg Oxycodone HCl (Roxicodone -) 10 mg PO Q6H PRN PRN Reason: PAIN LEVEL 6-10 Last Admin: 06/10/19 10:48 Dose: 10 mg Rivaroxaban (Xarelto) 20 mg PO DAILY@1800 [facility] Last Admin: 06/11/19 18:27 Dose: 20 mg Senna (Senna -) 1 tab PO BID [facility] Last Admin: 06/11/19 21:17 Dose: Not Given - Objective Vital Signs: Vital Signs Temperature 98.2 F 06/12/19 09:52 Pulse Rate 75 06/12/19 09:52 Respiratory Rate 18 06/12/19 09:52 Blood Pressure 145/85 06/12/19 09:52 O2 Sat by Pulse Oximetry (%) 93 L 06/12/19 09:00 Eyes: Yes: PERRL HENT: Yes: Atraumatic Neck: Yes: Supple Cardiovascular: Yes: Pulse Irregular, S1, S2 Respiratory: Yes: Diminished Gastrointestinal: Yes: Normal Bowel Sounds, Soft. No: Tenderness Edema: No Labs: CBC, BMP 06/11/19 07:15 06/11/19 07:15 INR, PTT INR 3.32 (0.83-1.09) H 06/09/19 23:10 Problem List - Problems (1) A-fib Code(s): I48.91 - UNSPECIFIED ATRIAL FIBRILLATION Qualifiers: Atrial fibrillation type: unspecified chronic Qualified Code(s): I48.20 - Chronic atrial fibrillation, unspecified; I48.2 - Chronic atrial fibrillation (2) CHF (congestive heart failure) Code(s): I50.9 - HEART FAILURE, UNSPECIFIED (3) Cellulitis of right leg Code(s): L03.115 - CELLULITIS OF RIGHT LOWER LIMB (4) HLD (hyperlipidemia) Code(s): E78.5 - HYPERLIPIDEMIA, UNSPECIFIED (5) HTN (hypertension) Code(s): I10 - ESSENTIAL (PRIMARY) HYPERTENSION (6) Hematoma of right lower extremity Code(s): S80.11XA - CONTUSION OF RIGHT LOWER LEG, INITIAL ENCOUNTER Qualifiers: Encounter type: initial encounter Qualified Code(s): S80.11XA - Contusion of right lower leg, initial encounter Assessment/Plan 1. Persistent AF on DOAC/Xarelto 2. Acute on chronic LV diastolic failure 3. HTN 4. Hypercholesterolemia 5. Cellulitis and hematoma right leg/calf PLAN: 1. Continue Metoprolol ER 50 mg BID as tolerated 2. Continue Xarelto 20 mg QD with caution 3. Continue diuretics and monitor renal function and electrolytes 4. Antibiotic coverage 5. Wound care 6. Eventually follow up with Dr. Cain in the office when discharged García Velásquez MD
--- NOTE | 2019-06-12 12:37 | PN ---
Progress Note, Physician History of Present Illness: stable no new issues leg redness looks better - Current Medication List Current Medications: Active Medications Acetaminophen (Tylenol -) 650 mg PO Q4H PRN PRN Reason: PAIN LEVEL 1-5 Last Admin: 06/12/19 10:25 Dose: 650 mg Furosemide (Lasix -) 40 mg PO DAILY [facility] Last Admin: 06/12/19 10:27 Dose: 40 mg Metoprolol Succinate (Toprol Xl -) 50 mg PO BID [facility] Last Admin: 06/12/19 10:27 Dose: 50 mg Oxycodone HCl (Roxicodone -) 10 mg PO Q6H PRN PRN Reason: PAIN LEVEL 6-10 Last Admin: 06/12/19 10:26 Dose: 10 mg Rivaroxaban (Xarelto) 20 mg PO DAILY@1800 [facility] Last Admin: 06/11/19 18:27 Dose: 20 mg Senna (Senna -) 1 tab PO BID [facility] Last Admin: 06/12/19 10:27 Dose: 1 tab - Objective Vital Signs: Vital Signs Temperature 98.2 F 06/12/19 09:52 Pulse Rate 75 06/12/19 09:52 Respiratory Rate 18 06/12/19 09:52 Blood Pressure 145/85 06/12/19 09:52 O2 Sat by Pulse Oximetry (%) 93 L 06/12/19 09:00 Constitutional: Yes: No Distress, Calm Cardiovascular: Yes: S1, S2 Respiratory: Yes: Regular, CTA Bilaterally Gastrointestinal: Yes: Normal Bowel Sounds, Soft Musculoskeletal: Yes: WNL Extremities: Yes: Erythema (improving), Other (hematoma) Neurological: Yes: Alert, Oriented Psychiatric: Yes: Alert, Oriented Labs: CBC, BMP 06/11/19 07:15 06/11/19 07:15 INR, PTT INR 3.32 (0.83-1.09) H 06/09/19 23:10 Assessment/Plan Problem List - Problems (1) Cellulitis of right leg Problems reviewed: Yes Code(s): L03.115 - CELLULITIS OF RIGHT LOWER LIMB (2) HLD (hyperlipidemia) Code(s): E78.5 - HYPERLIPIDEMIA, UNSPECIFIED (3) HTN (hypertension) Problems reviewed: Yes Code(s): I10 - ESSENTIAL (PRIMARY) HYPERTENSION (4) Hematoma of right lower extremity Problems reviewed: Yes Code(s): S80.11XA - CONTUSION OF RIGHT LOWER LEG, INITIAL ENCOUNTER Qualifiers: Encounter type: initial encounter Qualified Code(s): S80.11XA - Contusion of right lower leg, initial encounter (5) CHF (congestive heart failure) Problems reviewed: Yes Code(s): I50.9 - HEART FAILURE, UNSPECIFIED (6) A-fib Code(s): I48.91 - UNSPECIFIED ATRIAL FIBRILLATION Qualifiers: Atrial fibrillation type: unspecified chronic Qualified Code(s): I48.20 - Chronic atrial fibrillation, unspecified; I48.2 - Chronic atrial fibrillation plan continue current mgmt elevation of the leg physio await for final plan
[2019-06-12] MEDS ORDERED: guaiFENesin 200 MG/10 ML 10 ML UNIT-DOSE CUPS PO PRN (13:37)
[2019-06-12] MEDS ORDERED: MEROPENEM 1 GM VIAL (RESTRICTED TO ID) IVPB ONE ×2 (14:08→15:50)
[2019-06-12] MEDS ORDERED: DEXTROSE 5%-WATER 100 ML IVPB ONE ×2 (14:08→15:50)
[2019-06-12] MEDS: MEROPENEM 1 GM in DEXTROSE 5%-WATER 100 ML IVPB SCH ×2 (14:25→17:37)
--- NOTE | 2019-06-12 14:36 | CONSULT ---
- Consultation REQUESTING PROVIDER: CONSULT REQUEST: We have been asked to surgically evaluate this patient for right LE hematoma PCP:Sergo Strange HISTORY OF PRESENT ILLNESS: Ms. Abbasi is a 84 y/o female with PMH significant for a-fib (on xarelto) and CHF presenting today with bruising and redness of the right calf. Reports that she was sitting on her recliner when knocked over a heavy pyrex bowl filled with cereal on Tuesday afternoon. Reports that the bowel hit her on the medial tibia and again on the medial mid calf. Patient reports that a large bruise began growing throughout the afternoon , and in the evening she noticed that her right leg was red from the midfoot throughout the calf. Denies fever,chest pain/shortness of breath abdominal pain. She does limited ambulation with her walker at home 2/2 deconditioning. Past History CHF AFib HTN CAD Allergies/Adverse Reactions: Allergies Allergy/AdvReac Type Severity Reaction Status Date / Time No Known Allergies Allergy Verified 06/09/19 21:46 Home Medications: Ambulatory Orders Rivaroxaban [Xarelto] 20 mg PO DAILY #0 tablet 10/19/11 Atorvastatin Ca [Lipitor] 20 mg PO HS 06/10/19 Clotrimazole 1 applic TP DAILY 06/10/19 Furosemide 40 mg PO DAILY 06/10/19 Potassium Chloride 20 meq PO DAILY 06/10/19 Anemia: No Asthma: No Cancer: Yes (LEFT BREAST) Cardiac Disorders: Yes ([place]) CVA: No COPD: No CHF: Yes Dementia: No Diabetes: No GI Disorders: No Disorders: No HTN: Yes Hypercholesterolemia: Yes Liver Disease: No Seizures: No Thyroid Disease: No - Surgical History Abdominal Surgery: No Appendectomy: Yes Cardiac Surgery: No Cholecystectomy: Yes Lung Surgery: No Neurologic Surgery: No Orthopedic Surgery: No - Immunization History Td Vaccination: No Immunization Up to Date: Yes - Psycho Social/Smoking Cessation Hx Smoking Status: No Smoking History: Never smoked Have you smoked in the past 12 months: No Number of Cigarettes Smoked Daily: 0 Information on smoking cessation initiated: No Hx Alcohol Use: No Drug/Substance Use Hx: No Substance Use Type: None Hx Substance Use Treatment: No Review of Systems - Review of Systems Comments:: GENERAL/CONSTITUTIONAL: No fever or chills. No weakness._ HEAD, EYES, EARS, NOSE AND THROAT: No change in vision. No change in hearing. No sore throat._ CARDIOVASCULAR: No chest pain or shortness of breath_ RESPIRATORY: Denies cough, hemoptysis_ GASTROINTESTINAL: No nausea, vomiting, diarrhea or constipation._ GENITOURINARY: No dysuria, frequency, or change in urination._ MUSCULOSKELETAL: + Redness, bruising, and pain to the RLE. SKIN: No rash_ NEUROLOGIC: No headache, vertigo, loss of consciousness, or change in strength/ sensation._ ENDOCRINE: No increased thirst. No abnormal weight change_ HEMATOLOGIC/LYMPHATIC: No anemia, easy bleeding, or history of blood clots._ ALLERGIC/IMMUNOLOGIC: No hives or skin allergy._ *Physical Exam Vital Signs Temp 98.7 F 06/12/19 13:27 Pulse 84 06/12/19 13:27 Resp 18 06/12/19 13:27 BP 141/99 06/12/19 13:27 Pulse Ox 93 L 06/12/19 09:00 Intake & Output 06/11/19 06/12/19 06/12/19 23:59 11:59 23:59 Intake Total 100 Balance 100 Weight 224 lb 8 oz Intake: Oral 100 Other: Voiding Method Bedpan Incontinent # Unmeasured Voids Void 2 Bowel Movement Yes No Weight Measurement Method Built in Bedscale CBC, BMP 06/11/19 07:15 06/11/19 07:15 - Physical Exam GENERAL: A&Ox3, NAD EYES: sclera anicteric, conjunctiva clear_ LUNGS:Unlabored resp on RA EXTREMITIES: RUE/LUE/LLE: Normal inspection, Normal range of motion. No clubbing or cyanosis. 1+ pitting edema in LLE. RLE: chronic skin changes throughout, Large flucutuant hematoma measuring approx. 5cm by 3cm over distal 3rd right medial aspect of the calf. No evidence of sinus of open skin. Eccyhmosis extends circumstantially with mild erythema at inferior portion just superior to the medial malleolus. TTP throughout extremity. Compartments soft and supple. no other rashes or lesions seen. +2DP and PT pulses. Left LE with some chronic skin changes, no rashes or lesions, compartments soft , supple and non-tender with +2 DP and PT pulses. NEUROLOGICAL: Cranial nerves II through XII grossly intact. Normal speech, Soft tissue Ultrasound Right LE: revealed collection which likely resembles a hematoma Problem List - Problems (1) Hematoma of right lower extremity Assessment/Plan: Patient with hematoma after she sustained a soft tissue injury while on Xarelto. Skin intact and patient states the hemetoma is already improving since the incident occurred on Tuesday. Palpable pulses with no indication for vascular intervention. -Warm compress to right LE hematoma as tolerated -elevate right LE above level of heart while in bed -OOB with walker and PT -Prophylactic abx per med -dose Xarelto to appropriate therapeutic dosing for patient needs. Evaluation and plan discussed with Dr Clement Code(s): S80.11XA - CONTUSION OF RIGHT LOWER LEG, INITIAL ENCOUNTER Qualifiers: Encounter type: initial encounter Qualified Code(s): S80.11XA - Contusion of right lower leg, initial encounter
[2019-06-12] MEDS: PANTOPRAZOLE 40 MG TABLET (FP) PO SCH (16:24)
[2019-06-12] MEDS: NYSTATIN 100,000 UNIT/GM TOPICAL CREAM 15 GM TUBE TP SCH ×2 (16:29→22:30)
[2019-06-12] MEDS: AMOX TR/POT CLAV 500MG/125MG TABLETS (FP) PO SCH (17:31)
[2019-06-12] MEDS: RIVAROXABAN 20 MG TABLET PO SCH (17:31)
[2019-06-12] MEDS ORDERED: RIVAROXABAN 15 MG TABLET PO SCH (20:26)
--- NOTE | 2019-06-12 20:26 | PN ---
Progress Note (short form) - Note Progress Note: Decreased pain in right leg, decreased erythema Has long standing GERD Vital Signs - 24 hr 06/11/19 06/11/19 06/12/19 21:00 21:20 06:05 Temperature 97.6 F Pulse Rate 90 78 Respiratory 20 20 18 Rate Blood Pressure 145/88 143/59 L O2 Sat by Pulse 94 L Oximetry (%) 06/12/19 06/12/19 06/12/19 09:00 09:52 13:27 Temperature 98.2 F 98.7 F Pulse Rate 75 84 Respiratory 18 18 18 Rate Blood Pressure 145/85 141/99 O2 Sat by Pulse 93 L Oximetry (%) Current Medications Generic Name Dose Route Start Last Admin Trade Name Freq PRN Reason Stop Dose Admin Acetaminophen 650 mg 06/10/19 02:56 06/12/19 18:47 Tylenol - PO 650 mg Q4H PRN Administration PAIN LEVEL 1-5 Amoxicillin/Clavulanate Potassium 1 tab 06/12/19 17:30 06/12/19 17:31 Augmentin - 500mg Tablet PO 1 tab BID@0800,1730 NAOMI Administration Furosemide 40 mg 06/11/19 10:00 06/12/19 10:27 Lasix - PO 40 mg DAILY NA[facility] Administration Guaifenesin 10 ml 06/12/19 13:37 06/12/19 16:24 Robitussin - PO 10 ml Q6H PRN Administration COUGH Meropenem 1 gm/ Dextrose 100 mls @ 200 mls/hr 06/12/19 12:45 06/12/19 17:37 IVPB 200 mls/hr Q8H-IV [facility]OM[facility] Administration Metoprolol Succinate 50 mg 06/10/19 10:00 06/12/19 10:27 Toprol Xl - PO 50 mg BID NAOMI Administration Nystatin 1 applic 06/12/19 13:45 06/12/19 16:29 Mycostatin Cream - TP Not Given BID NAOMI Oxycodone HCl 10 mg 06/10/19 02:56 06/12/19 18:48 Roxicodone - PO 10 mg Q6H PRN Administration PAIN LEVEL 6-10 Pantoprazole Sodium 40 mg 06/12/19 13:45 06/12/19 16:24 Protonix - PO 40 mg DAILY NAOMI Administration Rivaroxaban 20 mg 06/10/19 18:00 06/12/19 17:31 Xarelto PO 20 mg DAILY@1800 [facility] Administration Senna 1 tab 06/10/19 10:00 06/12/19 10:27 Senna - PO 1 tab BID NAOMI Administration S1 S2 RRR Lungs clear Abd- soft, NT Edema right leg Hematoma+ Decreased erythema tender PLAN IV antibiotics needs isolation for ESBL Wound eval for hematoma decreasre Xarelto Problem List - Problems (1) A-fib Code(s): I48.91 - UNSPECIFIED ATRIAL FIBRILLATION Qualifiers: Atrial fibrillation type: unspecified chronic Qualified Code(s): I48.20 - Chronic atrial fibrillation, unspecified; I48.2 - Chronic atrial fibrillation (2) Anxiety Code(s): F41.9 - ANXIETY DISORDER, UNSPECIFIED (3) Cellulitis of right leg Code(s): L03.115 - CELLULITIS OF RIGHT LOWER LIMB (4) HLD (hyperlipidemia) Code(s): E78.5 - HYPERLIPIDEMIA, UNSPECIFIED (5) HTN (hypertension) Code(s): I10 - ESSENTIAL (PRIMARY) HYPERTENSION (6) Hematoma of right lower extremity Code(s): S80.11XA - CONTUSION OF RIGHT LOWER LEG, INITIAL ENCOUNTER Qualifiers: Encounter type: initial encounter Qualified Code(s): S80.11XA - Contusion of right lower leg, initial encounter
[2019-06-13] MEDS ORDERED: DEXTROSE 5%-WATER 100 ML IVPB ONE ×3 (02:13→17:30)
[2019-06-13] MEDS ORDERED: MEROPENEM 1 GM VIAL (RESTRICTED TO ID) IVPB ONE ×3 (02:13→17:30)
[2019-06-13] MEDS: MEROPENEM 1 GM in DEXTROSE 5%-WATER 100 ML IVPB SCH ×3 (02:28→17:35)
[2019-06-13] MEDS ORDERED: PT OWN MED DRAWER 7, Y5N ONE ×3 (08:46→17:30)
--- NOTE | 2019-06-13 09:17 | PN ---
Progress Note, Physician History of Present Illness: Right tender ashley hematoma, denies dyspnea, orthopnea, chest pain, palpitations. - Current Medication List Current Medications: Active Medications Acetaminophen (Tylenol -) 650 mg PO Q4H PRN PRN Reason: PAIN LEVEL 1-5 Last Admin: 06/12/19 18:47 Dose: 650 mg Amoxicillin/Clavulanate Potassium (Augmentin - 500mg Tablet) 1 tab PO BID@0800, 1730 [facility] Last Admin: 06/12/19 17:31 Dose: 1 tab Furosemide (Lasix -) 40 mg PO DAILY [facility] Last Admin: 06/12/19 10:27 Dose: 40 mg Guaifenesin (Robitussin -) 10 ml PO Q6H PRN PRN Reason: COUGH Last Admin: 06/12/19 16:24 Dose: 10 ml Meropenem 1 gm/ Dextrose 100 mls @ 200 mls/hr IVPB Q8H-IV [facility] Last Admin: 06/13/19 02:28 Dose: 200 mls/hr Metoprolol Succinate (Toprol Xl -) 50 mg PO BID [facility] Last Admin: 06/12/19 21:48 Dose: 50 mg Nystatin (Mycostatin Cream -) 1 applic TP BID [facility] Last Admin: 06/12/19 22:30 Dose: 1 applic Oxycodone HCl (Roxicodone -) 10 mg PO Q6H PRN PRN Reason: PAIN LEVEL 6-10 Last Admin: 06/12/19 18:48 Dose: 10 mg Pantoprazole Sodium (Protonix -) 40 mg PO DAILY [facility] Last Admin: 06/12/19 16:24 Dose: 40 mg Rivaroxaban (Xarelto) 15 mg PO DAILY@1800 [facility] Senna (Senna -) 1 tab PO BID [facility] Last Admin: 06/12/19 21:52 Dose: Not Given - Objective Vital Signs: Vital Signs Temperature 98.3 F 06/13/19 06:00 Pulse Rate 78 06/13/19 06:00 Respiratory Rate 18 06/13/19 06:00 Blood Pressure 133/82 06/13/19 06:00 O2 Sat by Pulse Oximetry (%) 93 L 06/12/19 21:00 Constitutional: Yes: No Distress, Calm Neck: Yes: Supple Cardiovascular: Yes: Pulse Irregular Respiratory: Yes: Regular, CTA Bilaterally Gastrointestinal: Yes: Normal Bowel Sounds, Soft Edema: No Wound/Incision: Yes: Other (Right ashley hematoma) Labs: CBC, BMP 06/11/19 07:15 06/11/19 07:15 INR, PTT INR 3.32 (0.83-1.09) H 06/09/19 23:10 Assessment/Plan - Problems (1) Obesity Code(s): E66.9 - OBESITY, UNSPECIFIED (2) Sedentary lifestyle Code(s): Z91.89 - OT PERSONAL RISK FACTORS, NOT ELSEWHERE CLASSIFIED (3) A-fib Assessment/Plan: On metoprolol ER 50 bid for HR control. On rivaroxaban 20 qd for anticoagulation. ECHO pending. Now with hematoma of RLE due to trauma (heavy bowl fell on her leg). Code(s): I48.91 - UNSPECIFIED ATRIAL FIBRILLATION Qualifiers: Atrial fibrillation type: unspecified chronic Qualified Code(s): I48.20 - Chronic atrial fibrillation, unspecified; I48.2 - Chronic atrial fibrillation (4) CHF (congestive heart failure) Assessment/Plan: ECHO pending for LVEF. Dyspnea on exertion; sedentary; obese. On metoprolol ER 50 bid and furosemide 40 qd. F/u BUN/Cr, electrolytes, daily weight, Is and Os. Pt will f/u with Dr. Meadows, whom she has not seen in 2 years. Code(s): I50.9 - HEART FAILURE, UNSPECIFIED (5) Cellulitis of right leg Code(s): L03.115 - CELLULITIS OF RIGHT LOWER LIMB On empiric course of meropenum (6) HLD (hyperlipidemia) Code(s): E78.5 - HYPERLIPIDEMIA, UNSPECIFIED (7) HTN (hypertension) Code(s): I10 - ESSENTIAL (PRIMARY) HYPERTENSION (8) Hematoma of right lower extremity Code(s): S80.11XA - CONTUSION OF RIGHT LOWER LEG, INITIAL ENCOUNTER Qualifiers: Encounter type: initial encounter Qualified Code(s): S80.11XA - Contusion of right lower leg, initial encounter (9) Anxiety Code(s): F41.9 - ANXIETY DISORDER, UNSPECIFIED 1. Persistent AF on DOAC/Xarelto 2. Acute on chronic LV diastolic failure 3. HTN 4. Hypercholesterolemia 5. Cellulitis and hematoma right leg/calf PLAN: 1. Continue Metoprolol ER 50 mg BID as tolerated 2. Continue Xarelto 15 mg QD with caution 3. Continue Lasix 40 qd and monitor diuretic response, renal function and electrolytes 4. Antibiotic coverage 5. Wound care 6. Eventually follow up with Dr. Cain in the office when discharged
[2019-06-13] MEDS: PANTOPRAZOLE 40 MG TABLET (FP) PO SCH (09:51)
[2019-06-13] MEDS: FUROSEMIDE 40 MG TABLET (FP) PO SCH (09:51)
[2019-06-13] MEDS: SENNOSIDES 8.6MG TABLET (FP) PO SCH ×2 (09:51→21:53)
[2019-06-13] MEDS: NYSTATIN 100,000 UNIT/GM TOPICAL CREAM 15 GM TUBE TP SCH ×2 (09:52→21:53)
[2019-06-13] MEDS: AMOX TR/POT CLAV 500MG/125MG TABLETS (FP) PO SCH ×2 (11:06→17:35)
--- NOTE | 2019-06-13 11:54 | PN ---
Progress Note (short form) - Note Progress Note: Decreased pain in right leg, decreased erythema occasional coughing Vital Signs - 24 hr 06/12/19 06/12/19 06/13/19 13:27 21:00 01:55 Temperature 98.7 F 98.1 F 98.3 F Pulse Rate 84 89 79 Respiratory 18 20 18 Rate Blood Pressure 141/99 121/65 134/76 O2 Sat by Pulse 93 L Oximetry (%) 06/13/19 06:00 Temperature 98.3 F Pulse Rate 78 Respiratory 18 Rate Blood Pressure 133/82 O2 Sat by Pulse Oximetry (%) Current Medications Generic Name Dose Route Start Last Admin Trade Name Freq PRN Reason Stop Dose Admin Acetaminophen 650 mg 06/10/19 02:56 06/12/19 18:47 Tylenol - PO 650 mg Q4H PRN Administration PAIN LEVEL 1-5 Amoxicillin/Clavulanate Potassium 1 tab 06/12/19 17:30 06/13/19 11:06 Augmentin - 500mg Tablet PO 1 tab BID@0800,1730 [facility] Administration Furosemide 40 mg 06/11/19 10:00 06/13/19 09:51 Lasix - PO 40 mg DAILY [facility] Administration Guaifenesin 10 ml 06/12/19 13:37 06/12/19 16:24 Robitussin - PO 10 ml Q6H PRN Administration COUGH Meropenem 1 gm/ Dextrose 100 mls @ 200 mls/hr 06/12/19 12:45 06/13/19 09:51 IVPB 200 mls/hr Q8H-IV [facility] Administration Metoprolol Succinate 50 mg 06/10/19 10:00 06/13/19 09:51 Toprol Xl - PO 50 mg BID [facility]I Administration Nystatin 1 applic 06/12/19 13:45 06/13/19 09:52 Mycostatin Cream - TP 1 applic BID [facility] Administration Oxycodone HCl 10 mg 06/10/19 02:56 06/12/19 18:48 Roxicodone - PO 10 mg Q6H PRN Administration PAIN LEVEL 6-10 Pantoprazole Sodium 40 mg 06/12/19 13:45 06/13/19 09:51 Protonix - PO 40 mg DAILY [facility] Administration Rivaroxaban 15 mg 06/13/19 18:00 Xarelto PO DAILY@1800 [facility] Senna 1 tab 06/10/19 10:00 06/13/19 09:51 Senna - PO 1 tab BID NAOMI Administration Microbiology 06/09/19 23:10 Blood - Peripheral Venous Blood Culture - Preliminary NO GROWTH OBTAINED AFTER 72 HOURS, INCUBATION TO CONTINUE FOR 2 DAYS. 06/09/19 23:10 Blood - Peripheral Venous Blood Culture - Preliminary NO GROWTH OBTAINED AFTER 72 HOURS, INCUBATION TO CONTINUE FOR 2 DAYS. 06/09/19 23:10 Calf - Right Medial Gram Stain - Final 06/09/19 23:10 Calf - Right Medial Wound Culture - Final Escherichia Coli [employer]bl [employer] Enterococcus Faecalis Staphylococcus Coagulase Neg S1 S2 RRR Lungs clear Abd- soft, NT Edema right leg Hematoma+ decreased size Decreased erythema tender PLAN IV antibiotics needs isolation for ESBL Wound eval for hematoma appreciated continue Xarelto physical therapy Problem List - Problems (1) A-fib Code(s): I48.91 - UNSPECIFIED ATRIAL FIBRILLATION Qualifiers: Atrial fibrillation type: unspecified chronic Qualified Code(s): I48.20 - Chronic atrial fibrillation, unspecified; I48.2 - Chronic atrial fibrillation (2) Anxiety Code(s): F41.9 - ANXIETY DISORDER, UNSPECIFIED (3) Cellulitis of right leg Code(s): L03.115 - CELLULITIS OF RIGHT LOWER LIMB (4) HLD (hyperlipidemia) Code(s): E78.5 - HYPERLIPIDEMIA, UNSPECIFIED (5) HTN (hypertension) Code(s): I10 - ESSENTIAL (PRIMARY) HYPERTENSION (6) Hematoma of right lower extremity Code(s): S80.11XA - CONTUSION OF RIGHT LOWER LEG, INITIAL ENCOUNTER Qualifiers: Encounter type: initial encounter Qualified Code(s): S80.11XA - Contusion of right lower leg, initial encounter
--- NOTE | 2019-06-13 12:25 | PN ---
Progress Note, Physician History of Present Illness: stable no new issues swelling coming down leg looks better - Current Medication List Current Medications: Active Medications Acetaminophen (Tylenol -) 650 mg PO Q4H PRN PRN Reason: PAIN LEVEL 1-5 Last Admin: 06/12/19 18:47 Dose: 650 mg Amoxicillin/Clavulanate Potassium (Augmentin - 500mg Tablet) 1 tab PO BID@0800, 1730 [facility] Last Admin: 06/13/19 11:06 Dose: 1 tab Furosemide (Lasix -) 40 mg PO DAILY [facility] Last Admin: 06/13/19 09:51 Dose: 40 mg Guaifenesin (Robitussin -) 10 ml PO Q6H PRN PRN Reason: COUGH Last Admin: 06/12/19 16:24 Dose: 10 ml Meropenem 1 gm/ Dextrose 100 mls @ 200 mls/hr IVPB Q8H-IV [facility] Last Admin: 06/13/19 09:51 Dose: 200 mls/hr Metoprolol Succinate (Toprol Xl -) 50 mg PO BID [facility] Last Admin: 06/13/19 09:51 Dose: 50 mg Nystatin (Mycostatin Cream -) 1 applic TP BID [facility] Last Admin: 06/13/19 09:52 Dose: 1 applic Oxycodone HCl (Roxicodone -) 10 mg PO Q6H PRN PRN Reason: PAIN LEVEL 6-10 Last Admin: 06/12/19 18:48 Dose: 10 mg Pantoprazole Sodium (Protonix -) 40 mg PO DAILY [facility] Last Admin: 06/13/19 09:51 Dose: 40 mg Rivaroxaban (Xarelto) 15 mg PO DAILY@1800 [facility] Senna (Senna -) 1 tab PO BID [facility] Last Admin: 06/13/19 09:51 Dose: 1 tab - Objective Vital Signs: Vital Signs Temperature 98.3 F 06/13/19 06:00 Pulse Rate 78 06/13/19 06:00 Respiratory Rate 18 06/13/19 06:00 Blood Pressure 133/82 06/13/19 06:00 O2 Sat by Pulse Oximetry (%) 93 L 06/12/19 21:00 Constitutional: Yes: No Distress, Calm Cardiovascular: Yes: S1, S2 Respiratory: Yes: Regular, CTA Bilaterally Gastrointestinal: Yes: Normal Bowel Sounds, Soft Musculoskeletal: Yes: WNL Extremities: Yes: Other Integumentary: Yes: Erythema (improving) Wound/Incision: Yes: Other Neurological: Yes: Alert, Oriented Psychiatric: Yes: Alert, Oriented Labs: CBC, BMP 06/11/19 07:15 06/11/19 07:15 INR, PTT INR 3.32 (0.83-1.09) H 06/09/19 23:10 Assessment/Plan Problem List - Problems (1) Cellulitis of right leg Problems reviewed: Yes Code(s): L03.115 - CELLULITIS OF RIGHT LOWER LIMB (2) HLD (hyperlipidemia) Code(s): E78.5 - HYPERLIPIDEMIA, UNSPECIFIED (3) HTN (hypertension) Problems reviewed: Yes Code(s): I10 - ESSENTIAL (PRIMARY) HYPERTENSION (4) Hematoma of right lower extremity Problems reviewed: Yes Code(s): S80.11XA - CONTUSION OF RIGHT LOWER LEG, INITIAL ENCOUNTER Qualifiers: Encounter type: initial encounter Qualified Code(s): S80.11XA - Contusion of right lower leg, initial encounter (5) CHF (congestive heart failure) Problems reviewed: Yes Code(s): I50.9 - HEART FAILURE, UNSPECIFIED (6) A-fib Code(s): I48.91 - UNSPECIFIED ATRIAL FIBRILLATION Qualifiers: Atrial fibrillation type: unspecified chronic Qualified Code(s): I48.20 - Chronic atrial fibrillation, unspecified; I48.2 - Chronic atrial fibrillation plan continue current mgmt elevation of the leg physio abx rest as per the team
[2019-06-13] MEDS: RIVAROXABAN 15 MG TABLET PO SCH (17:35)
[2019-06-14] MEDS ORDERED: MEROPENEM 1 GM VIAL (RESTRICTED TO ID) IVPB ONE ×3 (01:57→16:34)
[2019-06-14] MEDS ORDERED: DEXTROSE 5%-WATER 100 ML IVPB ONE ×3 (01:58→16:34)
[2019-06-14] MEDS: MEROPENEM 1 GM in DEXTROSE 5%-WATER 100 ML IVPB SCH ×3 (02:01→17:13)
[2019-06-14 07:33] LABS: BASO % 0.6 % (0-2.0); EOS % 0.6 % (0-4.5); HEMATOCRIT 38.9 % (32.4-45.2); HEMOGLOBIN 13.3 GM/dL (10.7-15.3); LYMPH % 21.9 % (8-40); MCH 32.8 pg (25.7-33.7); MCHC 34.2 g/dl (32.0-36.0); MEAN CELL VOLUME 95.9 fl (80-96); MEAN PLT VOLUME 8.1 fl (7.5-11.1); MONO % 14.6 % (3.8-10.2); NEUT % 62.3 % (42.8-82.8); PLATELET COUNT 234 K/MM3 (134-434); RBC 4.05 M/mm3 (3.60-5.2); RDW 12.5 % (11.6-15.6); WHITE BLOOD COUNT 9.8 K/mm3 (4.0-10.0)
[2019-06-14] MEDS ORDERED: PT OWN MED DRAWER 7, Y5N ONE ×2 (07:57→09:37)
[2019-06-14 08:32] LABS: ALBUMIN 2.7 g/dl (3.4-5.0); BILIRUBIN,TOTAL 0.6 mg/dL (0.2-1); BLOOD UREA NITROGEN 21.2 mg/dL (7-18); CALCIUM 8.4 mg/dL (8.5-10.1); CREATININE 0.8 mg/dL (0.55-1.3); POTASSIUM 4.3 mmol/L (3.5-5.1); TOT PROT 6.2 g/dl (6.4-8.2)
[2019-06-14] MEDS: AMOX TR/POT CLAV 500MG/125MG TABLETS (FP) PO SCH ×2 (08:52→17:14)
--- NOTE | 2019-06-14 09:45 | PN ---
Progress Note, Physician History of Present Illness: Right tender ashley hematoma tenderness and erythema improving, denies dyspnea, orthopnea, chest pain, palpitations. - Current Medication List Current Medications: Active Medications Acetaminophen (Tylenol -) 650 mg PO Q4H PRN PRN Reason: PAIN LEVEL 1-5 Last Admin: 06/12/19 18:47 Dose: 650 mg Amoxicillin/Clavulanate Potassium (Augmentin - 500mg Tablet) 1 tab PO BID@0800, 1730 [facility] Last Admin: 06/14/19 08:52 Dose: 1 tab Furosemide (Lasix -) 40 mg PO DAILY [facility] Last Admin: 06/13/19 09:51 Dose: 40 mg Guaifenesin (Robitussin -) 10 ml PO Q6H PRN PRN Reason: COUGH Last Admin: 06/12/19 16:24 Dose: 10 ml Meropenem 1 gm/ Dextrose 100 mls @ 200 mls/hr IVPB Q8H-IV [facility] Last Admin: 06/14/19 02:01 Dose: 200 mls/hr Metoprolol Succinate (Toprol Xl -) 50 mg PO BID [facility] Last Admin: 06/13/19 21:53 Dose: 50 mg Nystatin (Mycostatin Cream -) 1 applic TP BID [facility] Last Admin: 06/13/19 21:53 Dose: 1 applic Oxycodone HCl (Roxicodone -) 10 mg PO Q6H PRN PRN Reason: PAIN LEVEL 6-10 Last Admin: 06/12/19 18:48 Dose: 10 mg Pantoprazole Sodium (Protonix -) 40 mg PO DAILY [facility] Last Admin: 06/13/19 09:51 Dose: 40 mg Rivaroxaban (Xarelto) 15 mg PO DAILY@1800 [facility] Last Admin: 06/13/19 17:35 Dose: 15 mg Senna (Senna -) 1 tab PO BID [facility] Last Admin: 06/13/19 21:53 Dose: 1 tab - Objective Vital Signs: Vital Signs Temperature 98.1 F 06/14/19 06:00 Pulse Rate 77 06/14/19 06:00 Respiratory Rate 18 06/14/19 06:00 Blood Pressure 135/70 06/14/19 06:00 O2 Sat by Pulse Oximetry (%) 95 06/13/19 21:00 Constitutional: Yes: No Distress, Calm, Thin Neck: Yes: Supple Cardiovascular: Yes: Pulse Irregular Respiratory: Yes: Regular, CTA Bilaterally Gastrointestinal: Yes: Normal Bowel Sounds, Soft Edema: No Integumentary: Yes: Other (Right hematoma) Labs: CBC, BMP 06/14/19 06:20 06/14/19 06:20 INR, PTT INR 3.32 (0.83-1.09) H 06/09/19 23:10 Assessment/Plan 06/11/2019 TDS, normal LV size and fxn, LAE, mild MR, TR, AR - Problems (1) Obesity Code(s): E66.9 - OBESITY, UNSPECIFIED (2) Sedentary lifestyle Code(s): Z91.89 - OT PERSONAL RISK FACTORS, NOT ELSEWHERE CLASSIFIED (3) A-fib Assessment/Plan: On metoprolol ER 50 bid for HR control. On rivaroxaban 15 qd for anticoagulation. Now with hematoma of RLE due to trauma (heavy bowl fell on her leg). Code(s): I48.91 - UNSPECIFIED ATRIAL FIBRILLATION Qualifiers: Atrial fibrillation type: unspecified chronic Qualified Code(s): I48.20 - Chronic atrial fibrillation, unspecified; I48.2 - Chronic atrial fibrillation (4) CHF (congestive heart failure) Assessment/Plan: Dyspnea on exertion; sedentary; obese. On metoprolol ER 50 bid and furosemide 40 qd. F/u BUN/Cr, electrolytes, daily weight, Is and Os. Pt will f/u with Dr. Meadows, whom she has not seen in 2 years. Code(s): I50.9 - HEART FAILURE, UNSPECIFIED (5) Cellulitis of right leg Code(s): L03.115 - CELLULITIS OF RIGHT LOWER LIMB On empiric course of meropenum, Augmentin (6) HLD (hyperlipidemia) Code(s): E78.5 - HYPERLIPIDEMIA, UNSPECIFIED (7) HTN (hypertension) Code(s): I10 - ESSENTIAL (PRIMARY) HYPERTENSION (8) Hematoma of right lower extremity Code(s): S80.11XA - CONTUSION OF RIGHT LOWER LEG, INITIAL ENCOUNTER Qualifiers: Encounter type: initial encounter Qualified Code(s): S80.11XA - Contusion of right lower leg, initial encounter (9) Anxiety Code(s): F41.9 - ANXIETY DISORDER, UNSPECIFIED 1. Persistent AF on DOAC/Xarelto 2. Acute on chronic LV diastolic failure 3. HTN 4. Hypercholesterolemia 5. Cellulitis and hematoma right leg/calf PLAN: 1. Continue Metoprolol ER 50 mg BID as tolerated 2. Continue Xarelto 15 mg QD with caution 3. Continue Lasix 40 qd and monitor diuretic response, renal function and electrolytes 4. Antibiotic coverage 5. Wound care 6. Eventually follow up with Dr. Cain in the office when discharged
[2019-06-14] MEDS: oxyCODONE HCL 5 MG TABLET PO PRN ×2 (10:21→19:50)
[2019-06-14] MEDS: FUROSEMIDE 40 MG TABLET (FP) PO SCH (10:22)
[2019-06-14] MEDS: SENNOSIDES 8.6MG TABLET (FP) PO SCH ×2 (10:22→22:14)
[2019-06-14] MEDS: PANTOPRAZOLE 40 MG TABLET (FP) PO SCH (10:22)
[2019-06-14] MEDS: NYSTATIN 100,000 UNIT/GM TOPICAL CREAM 15 GM TUBE TP SCH ×2 (10:24→22:26)
[2019-06-14] MEDS: POLYETHYLENE GLYCOL 3350 119 GM BTL PO SCH (12:14)
--- NOTE | 2019-06-14 14:15 | PN ---
Progress Note, Physician History of Present Illness: stable no new issues wound now leaking - Current Medication List Current Medications: Active Medications Acetaminophen (Tylenol -) 650 mg PO Q4H PRN PRN Reason: PAIN LEVEL 1-5 Last Admin: 06/12/19 18:47 Dose: 650 mg Amoxicillin/Clavulanate Potassium (Augmentin - 500mg Tablet) 1 tab PO BID@0800, 1730 REPLACED BY [facility] Last Admin: 06/14/19 08:52 Dose: 1 tab Furosemide (Lasix -) 40 mg PO DAILY REPLACED BY [facility] Last Admin: 06/14/19 10:22 Dose: 40 mg Guaifenesin (Robitussin -) 10 ml PO Q6H PRN PRN Reason: COUGH Last Admin: 06/12/19 16:24 Dose: 10 ml Meropenem 1 gm/ Dextrose 100 mls @ 200 mls/hr IVPB Q8H-IV REPLACED BY [facility] Last Admin: 06/14/19 10:22 Dose: 200 mls/hr Metoprolol Succinate (Toprol Xl -) 50 mg PO BID REPLACED BY [facility] Last Admin: 06/14/19 10:22 Dose: 50 mg Nystatin (Mycostatin Cream -) 1 applic TP BID REPLACED BY [facility] Last Admin: 06/14/19 10:24 Dose: 1 applic Oxycodone HCl (Roxicodone -) 10 mg PO Q6H PRN PRN Reason: PAIN LEVEL 6-10 Last Admin: 06/14/19 10:21 Dose: 10 mg Pantoprazole Sodium (Protonix -) 40 mg PO DAILY REPLACED BY [facility] Last Admin: 06/14/19 10:22 Dose: 40 mg Polyethylene Glycol (Miralax (For Daily Use) -) 17 gm PO DAILY REPLACED BY [facility] Last Admin: 06/14/19 12:14 Dose: 17 gm Rivaroxaban (Xarelto) 15 mg PO DAILY@1800 REPLACED BY [facility] Last Admin: 06/13/19 17:35 Dose: 15 mg Senna (Senna -) 1 tab PO BID REPLACED BY [facility] Last Admin: 06/14/19 10:22 Dose: 1 tab - Objective Vital Signs: Vital Signs Temperature 97.5 F L 06/14/19 10:18 Pulse Rate 86 06/14/19 10:18 Respiratory Rate 18 06/14/19 10:18 Blood Pressure 143/84 06/14/19 10:18 O2 Sat by Pulse Oximetry (%) 96 06/14/19 09:00 Constitutional: Yes: No Distress, Calm Cardiovascular: Yes: S1, S2 Respiratory: Yes: Regular, CTA Bilaterally Gastrointestinal: Yes: Normal Bowel Sounds, Soft Musculoskeletal: Yes: Other Extremities: Yes: Erythema (improved), Other Neurological: Yes: Alert, Oriented Psychiatric: Yes: Alert, Oriented Labs: CBC, BMP 06/14/19 06:20 06/14/19 06:20 INR, PTT INR 3.32 (0.83-1.09) H 06/09/19 23:10 Assessment/Plan Problem List - Problems (1) Cellulitis of right leg Problems reviewed: Yes Code(s): L03.115 - CELLULITIS OF RIGHT LOWER LIMB (2) HLD (hyperlipidemia) Code(s): E78.5 - HYPERLIPIDEMIA, UNSPECIFIED (3) HTN (hypertension) Problems reviewed: Yes Code(s): I10 - ESSENTIAL (PRIMARY) HYPERTENSION (4) Hematoma of right lower extremity Problems reviewed: Yes Code(s): S80.11XA - CONTUSION OF RIGHT LOWER LEG, INITIAL ENCOUNTER Qualifiers: Encounter type: initial encounter Qualified Code(s): S80.11XA - Contusion of right lower leg, initial encounter (5) CHF (congestive heart failure) Problems reviewed: Yes Code(s): I50.9 - HEART FAILURE, UNSPECIFIED (6) A-fib Code(s): I48.91 - UNSPECIFIED ATRIAL FIBRILLATION Qualifiers: Atrial fibrillation type: unspecified chronic Qualified Code(s): I48.20 - Chronic atrial fibrillation, unspecified; I48.2 - Chronic atrial fibrillation plan continue current mgmt elevation of the leg physio abx rest as per the team
--- NOTE | 2019-06-14 16:19 | PN ---
Progress Note (short form) - Note Progress Note: Decreased pain in right leg, decreased erythema Vital Signs - 24 hr 06/13/19 06/13/19 06/13/19 18:00 21:00 22:00 Temperature 98.2 F 98.6 F Pulse Rate 90 98 H Respiratory 18 18 Rate Blood Pressure 145/83 122/73 O2 Sat by Pulse 95 Oximetry (%) 06/14/19 06/14/19 06/14/19 06:00 09:00 10:18 Temperature 98.1 F 97.5 F L Pulse Rate 77 86 Respiratory 18 18 Rate Blood Pressure 135/70 143/84 O2 Sat by Pulse 96 Oximetry (%) 06/14/19 14:39 Temperature 98.1 F Pulse Rate 87 Respiratory 18 Rate Blood Pressure 142/82 O2 Sat by Pulse Oximetry (%) Current Medications Generic Name Dose Route Start Last Admin Trade Name Freq PRN Reason Stop Dose Admin Acetaminophen 650 mg 06/10/19 02:56 06/12/19 18:47 Tylenol - PO 650 mg Q4H PRN Administration PAIN LEVEL 1-5 Amoxicillin/Clavulanate Potassium 1 tab 06/12/19 17:30 06/14/19 08:52 Augmentin - 500mg Tablet PO 1 tab BID@0800,1730 [facility] Administration Furosemide 40 mg 06/11/19 10:00 06/14/19 10:22 Lasix - PO 40 mg DAILY [facility] Administration Guaifenesin 10 ml 06/12/19 13:37 06/12/19 16:24 Robitussin - PO 10 ml Q6H PRN Administration COUGH Meropenem 1 gm/ Dextrose 100 mls @ 200 mls/hr 06/12/19 12:45 06/14/19 10:22 IVPB 200 mls/hr Q8H-IV [facility] Administration Metoprolol Succinate 50 mg 06/10/19 10:00 06/14/19 10:22 Toprol Xl - PO 50 mg BID [facility] Administration Nystatin 1 applic 06/12/19 13:45 06/14/19 10:24 Mycostatin Cream - TP 1 applic BID [facility] Administration Oxycodone HCl 10 mg 06/10/19 02:56 06/14/19 10:21 Roxicodone - PO 10 mg Q6H PRN Administration PAIN LEVEL 6-10 Pantoprazole Sodium 40 mg 06/12/19 13:45 06/14/19 10:22 Protonix - PO 40 mg DAILY [facility] Administration Polyethylene Glycol 17 gm 06/14/19 11:45 06/14/19 12:14 Miralax (For Daily Use) - PO 17 gm DAILY [facility] Administration Rivaroxaban 15 mg 06/13/19 18:00 06/13/19 17:35 Xarelto PO 15 mg DAILY@1800 [facility] Administration Senna 1 tab 06/10/19 10:00 06/14/19 10:22 Senna - PO 1 tab BID [facility] Administration Laboratory Results - last 24 hr 06/14/19 06/14/19 06:20 06:20 WBC 9.8 RBC 4.05 Hgb 13.3 Hct 38.9 MCV 95.9 MCH 32.8 MCHC 34.2 RDW 12.5 Plt Count 234 D MPV 8.1 Absolute Neuts (auto) 6.1 Neutrophils % 62.3 Lymphocytes % 21.9 D Monocytes % 14.6 H Eosinophils % 0.6 Basophils % 0.6 Nucleated RBC % 0 Sodium 137 Potassium 4.3 Chloride 102 Carbon Dioxide 30 Anion Gap 5 L BUN 21.2 H Creatinine 0.8 Est GFR (CKD-EPI)AfAm 79.02 Est GFR (CKD-EPI)NonAf 68.18 Random Glucose 95 Calcium 8.4 L Total Bilirubin 0.6 AST 13 L ALT 16 Alkaline Phosphatase 67 Total Protein 6.2 L Albumin 2.7 L Microbiology 06/09/19 23:10 Blood - Peripheral Venous Blood Culture - Preliminary NO GROWTH OBTAINED AFTER 72 HOURS, INCUBATION TO CONTINUE FOR 2 DAYS. 06/09/19 23:10 Blood - Peripheral Venous Blood Culture - Preliminary NO GROWTH OBTAINED AFTER 72 HOURS, INCUBATION TO CONTINUE FOR 2 DAYS. 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 Faecalis Staphylococcus Coagulase Neg S1 S2 RRR Lungs clear Abd- soft, NT Edema right leg Hematoma+ decreased size , slight opening noted on hematoma Decreased erythema tender PLAN IV antibiotics needs isolation for ESBL OOB continue Xarelto physical therapy Problem List - Problems (1) A-fib Code(s): I48.91 - UNSPECIFIED ATRIAL FIBRILLATION Qualifiers: Atrial fibrillation type: unspecified chronic Qualified Code(s): I48.20 - Chronic atrial fibrillation, unspecified; I48.2 - Chronic atrial fibrillation (2) Anxiety Code(s): F41.9 - ANXIETY DISORDER, UNSPECIFIED (3) Cellulitis of right leg Code(s): L03.115 - CELLULITIS OF RIGHT LOWER LIMB (4) HLD (hyperlipidemia) Code(s): E78.5 - HYPERLIPIDEMIA, UNSPECIFIED (5) HTN (hypertension) Code(s): I10 - ESSENTIAL (PRIMARY) HYPERTENSION (6) Hematoma of right lower extremity Code(s): S80.11XA - CONTUSION OF RIGHT LOWER LEG, INITIAL ENCOUNTER Qualifiers: Encounter type: initial encounter Qualified Code(s): S80.11XA - Contusion of right lower leg, initial encounter
[2019-06-14] MEDS: RIVAROXABAN 15 MG TABLET PO SCH (17:14)
[2019-06-15] MEDS ORDERED: MEROPENEM 1 GM VIAL (RESTRICTED TO ID) IVPB ONE ×3 (01:56→16:46)
[2019-06-15] MEDS ORDERED: DEXTROSE 5%-WATER 100 ML IVPB ONE ×3 (01:56→16:46)
[2019-06-15] MEDS: MEROPENEM 1 GM in DEXTROSE 5%-WATER 100 ML IVPB SCH ×3 (02:00→17:51)
[2019-06-15] MEDS: oxyCODONE HCL 5 MG TABLET PO PRN (05:02)
[2019-06-15] MEDS ORDERED: PT OWN MED DRAWER 7, Y5N ONE ×2 (08:14→17:48)
[2019-06-15] MEDS: AMOX TR/POT CLAV 500MG/125MG TABLETS (FP) PO SCH ×2 (09:20→17:52)
[2019-06-15] MEDS: FUROSEMIDE 40 MG TABLET (FP) PO SCH (09:22)
[2019-06-15] MEDS: PANTOPRAZOLE 40 MG TABLET (FP) PO SCH (09:22)
[2019-06-15] MEDS: NYSTATIN 100,000 UNIT/GM TOPICAL CREAM 15 GM TUBE TP SCH ×2 (09:23→22:03)
[2019-06-15] MEDS: POLYETHYLENE GLYCOL 3350 119 GM BTL PO SCH (09:23)
[2019-06-15] MEDS: SENNOSIDES 8.6MG TABLET (FP) PO SCH ×2 (09:23→22:03)
--- NOTE | 2019-06-15 11:10 | PN ---
Progress Note (short form) - Note Progress Note: pt seen/ examined chart reviewed awake/ comfortable. Vital Signs Temp 98 F 06/15/19 09:20 Pulse 77 06/15/19 09:20 Resp 19 06/15/19 09:20 BP 133/82 06/15/19 09:20 Pulse Ox 94 L 06/14/19 21:00 Intake & Output 06/14/19 06/14/19 06/15/19 11:59 23:59 11:59 Intake Total 400 600 340 Balance 400 600 340 Intake: IVPB 100 200 100 Oral 300 400 240 Other: Voiding Method Incontinent Incontinent # Unmeasured Voids Void 1 1 Bowel Movement Yes Active Medications Acetaminophen (Tylenol -) 650 mg PO Q4H PRN PRN Reason: PAIN LEVEL 1-5 Last Admin: 06/12/19 18:47 Dose: 650 mg Amoxicillin/Clavulanate Potassium (Augmentin - 500mg Tablet) 1 tab PO BID@0800, 1730 [facility] Last Admin: 06/15/19 09:20 Dose: 1 tab Furosemide (Lasix -) 40 mg PO DAILY [facility] Last Admin: 06/15/19 09:22 Dose: 40 mg Guaifenesin (Robitussin -) 10 ml PO Q6H PRN PRN Reason: COUGH Last Admin: 06/12/19 16:24 Dose: 10 ml Meropenem 1 gm/ Dextrose 100 mls @ 200 mls/hr IVPB Q8H-IV [facility] Last Admin: 06/15/19 09:22 Dose: 200 mls/hr Metoprolol Succinate (Toprol Xl -) 50 mg PO BID [facility] Last Admin: 06/15/19 09:22 Dose: 50 mg Nystatin (Mycostatin Cream -) 1 applic TP BID [facility] Last Admin: 06/15/19 09:23 Dose: 1 applic Oxycodone HCl (Roxicodone -) 10 mg PO Q6H PRN PRN Reason: PAIN LEVEL 6-10 Last Admin: 06/15/19 05:02 Dose: 10 mg Pantoprazole Sodium (Protonix -) 40 mg PO DAILY [facility] Last Admin: 06/15/19 09:22 Dose: 40 mg Polyethylene Glycol (Miralax (For Daily Use) -) 17 gm PO DAILY [facility] Last Admin: 06/15/19 09:23 Dose: Not Given Rivaroxaban (Xarelto) 15 mg PO DAILY@1800 [facility] Last Admin: 06/14/19 17:14 Dose: 15 mg Senna (Senna -) 1 tab PO BID [facility] Last Admin: 06/15/19 09:23 Dose: 1 tab CBC, BMP 06/14/19 06:20 06/14/19 06:20 Microbiology 06/09/19 23:10 Blood Culture - Final Blood - Peripheral Venous NO GROWTH AFTER 5 DAYS INCUBATION 06/09/19 23:10 Blood Culture - Final Blood - Peripheral Venous NO GROWTH AFTER 5 DAYS INCUBATION S1 S2 RRR Lungs clear Abd- soft, NT Edema right leg Hematoma+ decreased size , slight opening noted on hematoma Decreased erythema tender PLAN IV antibiotics needs isolation for ESBL OOB continue Xarelto physical therapy continue present care f/u labs abx local care Check inr-- Last INR noted Will follow Problem List - Problems (1) Cellulitis of right leg Code(s): L03.115 - CELLULITIS OF RIGHT LOWER LIMB (2) HLD (hyperlipidemia) Code(s): E78.5 - HYPERLIPIDEMIA, UNSPECIFIED (3) HTN (hypertension) Code(s): I10 - ESSENTIAL (PRIMARY) HYPERTENSION (4) Hematoma of right lower extremity Code(s): S80.11XA - CONTUSION OF RIGHT LOWER LEG, INITIAL ENCOUNTER Qualifiers: Encounter type: initial encounter Qualified Code(s): S80.11XA - Contusion of right lower leg, initial encounter (5) CHF (congestive heart failure) Code(s): I50.9 - HEART FAILURE, UNSPECIFIED (6) A-fib Code(s): I48.91 - UNSPECIFIED ATRIAL FIBRILLATION Qualifiers: Atrial fibrillation type: unspecified chronic Qualified Code(s): I48.20 - Chronic atrial fibrillation, unspecified; I48.2 - Chronic atrial fibrillation
--- NOTE | 2019-06-15 13:18 | PN ---
Progress Note, Physician History of Present Illness: stable no new issues - Current Medication List Current Medications: Active Medications Acetaminophen (Tylenol -) 650 mg PO Q4H PRN PRN Reason: PAIN LEVEL 1-5 Last Admin: 06/12/19 18:47 Dose: 650 mg Amoxicillin/Clavulanate Potassium (Augmentin - 500mg Tablet) 1 tab PO BID@0800, 1730 [facility] Last Admin: 06/15/19 09:20 Dose: 1 tab Furosemide (Lasix -) 40 mg PO DAILY [facility] Last Admin: 06/15/19 09:22 Dose: 40 mg Guaifenesin (Robitussin -) 10 ml PO Q6H PRN PRN Reason: COUGH Last Admin: 06/12/19 16:24 Dose: 10 ml Meropenem 1 gm/ Dextrose 100 mls @ 200 mls/hr IVPB Q8H-IV [facility] Last Admin: 06/15/19 09:22 Dose: 200 mls/hr Metoprolol Succinate (Toprol Xl -) 50 mg PO BID [facility] Last Admin: 06/15/19 09:22 Dose: 50 mg Nystatin (Mycostatin Cream -) 1 applic TP BID [facility] Last Admin: 06/15/19 09:23 Dose: 1 applic Oxycodone HCl (Roxicodone -) 10 mg PO Q6H PRN PRN Reason: PAIN LEVEL 6-10 Last Admin: 06/15/19 05:02 Dose: 10 mg Pantoprazole Sodium (Protonix -) 40 mg PO DAILY [facility] Last Admin: 06/15/19 09:22 Dose: 40 mg Polyethylene Glycol (Miralax (For Daily Use) -) 17 gm PO DAILY [facility] Last Admin: 06/15/19 09:23 Dose: Not Given Rivaroxaban (Xarelto) 15 mg PO DAILY@1800 [facility] Last Admin: 06/14/19 17:14 Dose: 15 mg Senna (Senna -) 1 tab PO BID [facility] Last Admin: 06/15/19 09:23 Dose: 1 tab - Objective Vital Signs: Vital Signs Temperature 98 F 06/15/19 09:20 Pulse Rate 77 06/15/19 09:20 Respiratory Rate 19 06/15/19 09:20 Blood Pressure 133/82 06/15/19 09:20 O2 Sat by Pulse Oximetry (%) 94 L 06/14/19 21:00 Constitutional: Yes: No Distress, Calm Cardiovascular: Yes: S1, S2 Respiratory: Yes: Regular, CTA Bilaterally Gastrointestinal: Yes: Normal Bowel Sounds, Soft Musculoskeletal: Yes: WNL Extremities: Yes: Other Neurological: Yes: Alert, Oriented Psychiatric: Yes: Alert, Oriented Labs: CBC, BMP 06/14/19 06:20 06/14/19 06:20 INR, PTT INR 3.32 (0.83-1.09) H 06/09/19 23:10 Assessment/Plan Problem List - Problems (1) Cellulitis of right leg Problems reviewed: Yes Code(s): L03.115 - CELLULITIS OF RIGHT LOWER LIMB (2) HLD (hyperlipidemia) Code(s): E78.5 - HYPERLIPIDEMIA, UNSPECIFIED (3) HTN (hypertension) Problems reviewed: Yes Code(s): I10 - ESSENTIAL (PRIMARY) HYPERTENSION (4) Hematoma of right lower extremity Problems reviewed: Yes Code(s): S80.11XA - CONTUSION OF RIGHT LOWER LEG, INITIAL ENCOUNTER Qualifiers: Encounter type: initial encounter Qualified Code(s): S80.11XA - Contusion of right lower leg, initial encounter (5) CHF (congestive heart failure) Problems reviewed: Yes Code(s): I50.9 - HEART FAILURE, UNSPECIFIED (6) A-fib Code(s): I48.91 - UNSPECIFIED ATRIAL FIBRILLATION Qualifiers: Atrial fibrillation type: unspecified chronic Qualified Code(s): I48.20 - Chronic atrial fibrillation, unspecified; I48.2 - Chronic atrial fibrillation plan continue current mgmt elevation of the leg physio abx rest as per the team
--- NOTE | 2019-06-15 16:07 | PN ---
Progress Note, Physician History of Present Illness: Right tender ashley hematoma tenderness and erythema improving, denies dyspnea, orthopnea, chest pain, palpitations. - Current Medication List Current Medications: Active Medications Acetaminophen (Tylenol -) 650 mg PO Q4H PRN PRN Reason: PAIN LEVEL 1-5 Last Admin: 06/12/19 18:47 Dose: 650 mg Amoxicillin/Clavulanate Potassium (Augmentin - 500mg Tablet) 1 tab PO BID@0800, 1730 [facility] Last Admin: 06/15/19 09:20 Dose: 1 tab Furosemide (Lasix -) 40 mg PO DAILY [facility] Last Admin: 06/15/19 09:22 Dose: 40 mg Guaifenesin (Robitussin -) 10 ml PO Q6H PRN PRN Reason: COUGH Last Admin: 06/12/19 16:24 Dose: 10 ml Meropenem 1 gm/ Dextrose 100 mls @ 200 mls/hr IVPB Q8H-IV [facility] Last Admin: 06/15/19 09:22 Dose: 200 mls/hr Metoprolol Succinate (Toprol Xl -) 50 mg PO BID [facility] Last Admin: 06/15/19 09:22 Dose: 50 mg Nystatin (Mycostatin Cream -) 1 applic TP BID [facility] Last Admin: 06/15/19 09:23 Dose: 1 applic Oxycodone HCl (Roxicodone -) 10 mg PO Q6H PRN PRN Reason: PAIN LEVEL 6-10 Last Admin: 06/15/19 05:02 Dose: 10 mg Pantoprazole Sodium (Protonix -) 40 mg PO DAILY [facility] Last Admin: 06/15/19 09:22 Dose: 40 mg Polyethylene Glycol (Miralax (For Daily Use) -) 17 gm PO DAILY [facility] Last Admin: 06/15/19 09:23 Dose: Not Given Rivaroxaban (Xarelto) 15 mg PO DAILY@1800 [facility] Last Admin: 06/14/19 17:14 Dose: 15 mg Senna (Senna -) 1 tab PO BID [facility] Last Admin: 06/15/19 09:23 Dose: 1 tab - Objective Vital Signs: Vital Signs Temperature 98.1 F 06/15/19 14:00 Pulse Rate 89 06/15/19 14:00 Respiratory Rate 18 06/15/19 14:00 Blood Pressure 139/83 06/15/19 14:00 O2 Sat by Pulse Oximetry (%) 96 06/15/19 09:00 Constitutional: Yes: No Distress, Calm Neck: Yes: Supple Cardiovascular: Yes: Pulse Irregular Respiratory: Yes: Regular, Diminished Gastrointestinal: Yes: Normal Bowel Sounds, Soft Edema: No Integumentary: Yes: Bruising (Resolving right ashley hematoma) Labs: CBC, BMP 06/14/19 06:20 06/14/19 06:20 INR, PTT INR 3.32 (0.83-1.09) H 06/09/19 23:10 Assessment/Plan 06/11/2019 TDS, normal LV size and fxn, LAE, mild MR, TR, AR - Problems (1) Obesity Code(s): E66.9 - OBESITY, UNSPECIFIED (2) Sedentary lifestyle Code(s): Z91.89 - OT PERSONAL RISK FACTORS, NOT ELSEWHERE CLASSIFIED (3) A-fib Assessment/Plan: On metoprolol ER 50 bid for HR control. On rivaroxaban 15 qd for anticoagulation. Now with hematoma of RLE due to trauma (heavy bowl fell on her leg). Code(s): I48.91 - UNSPECIFIED ATRIAL FIBRILLATION Qualifiers: Atrial fibrillation type: unspecified chronic Qualified Code(s): I48.20 - Chronic atrial fibrillation, unspecified; I48.2 - Chronic atrial fibrillation (4) CHF (congestive heart failure) Assessment/Plan: Dyspnea on exertion; sedentary; obese. On metoprolol ER 50 bid and furosemide 40 qd. F/u BUN/Cr, electrolytes, daily weight, Is and Os. Pt will f/u with Dr. Meadows, whom she has not seen in 2 years. Code(s): I50.9 - HEART FAILURE, UNSPECIFIED (5) Cellulitis of right leg Code(s): L03.115 - CELLULITIS OF RIGHT LOWER LIMB On empiric course of meropenum, Augmentin (6) HLD (hyperlipidemia) Code(s): E78.5 - HYPERLIPIDEMIA, UNSPECIFIED (7) HTN (hypertension) Code(s): I10 - ESSENTIAL (PRIMARY) HYPERTENSION (8) Hematoma of right lower extremity Code(s): S80.11XA - CONTUSION OF RIGHT LOWER LEG, INITIAL ENCOUNTER Qualifiers: Encounter type: initial encounter Qualified Code(s): S80.11XA - Contusion of right lower leg, initial encounter (9) Anxiety Code(s): F41.9 - ANXIETY DISORDER, UNSPECIFIED 1. Persistent AF on DOAC/Xarelto 2. Acute on chronic LV diastolic failure 3. HTN 4. Hypercholesterolemia 5. Cellulitis and hematoma right leg/calf PLAN: 1. Continue Metoprolol ER 50 mg BID as tolerated 2. Continue Xarelto 15 mg QD with caution 3. Continue Lasix 40 qd and monitor diuretic response, renal function and electrolytes 4. Antibiotic coverage 5. Wound care 6. Eventually follow up with Dr. Cain in the office when discharged
[2019-06-15] MEDS: RIVAROXABAN 15 MG TABLET PO SCH (18:23)
[2019-06-16] MEDS ORDERED: MEROPENEM 1 GM VIAL (RESTRICTED TO ID) IVPB ONE ×3 (01:41→16:58)
[2019-06-16] MEDS ORDERED: DEXTROSE 5%-WATER 100 ML IVPB ONE ×3 (01:42→16:58)
[2019-06-16] MEDS: MEROPENEM 1 GM in DEXTROSE 5%-WATER 100 ML IVPB SCH ×3 (02:05→17:26)
[2019-06-16] MEDS ORDERED: oxyCODONE HCL 5 MG TABLET PO PRN (05:47)
--- NOTE | 2019-06-16 07:13 | PN ---
Progress Note (short form) - Note Progress Note: Chief Complaint: Events noted, notes reviewed, denies any chest pain, reports persistent dyspnea and cough History of Present Illness: Seen and examined on telemetry. Events noted, notes reviewed, denies any chest pain, reports persistent dyspnea and cough - Current Medication List Current Medications Acetaminophen (Tylenol -) 650 mg PO Q4H PRN PRN Reason: PAIN LEVEL 1-5 Last Admin: 06/12/19 18:47 Dose: 650 mg Amoxicillin/Clavulanate Potassium (Augmentin - 500mg Tablet) 1 tab PO BID@0800, 1730 [facility] Last Admin: 06/15/19 17:52 Dose: 1 tab Furosemide (Lasix -) 40 mg PO DAILY [facility] Last Admin: 06/15/19 09:22 Dose: 40 mg Guaifenesin (Robitussin -) 10 ml PO Q6H PRN PRN Reason: COUGH Last Admin: 06/12/19 16:24 Dose: 10 ml Meropenem 1 gm/ Dextrose 100 mls @ 200 mls/hr IVPB Q8H-IV [facility] Last Admin: 06/16/19 02:05 Dose: 200 mls/hr Metoprolol Succinate (Toprol Xl -) 50 mg PO BID [facility] Last Admin: 06/15/19 22:03 Dose: 50 mg Nystatin (Mycostatin Cream -) 1 applic TP BID [facility] Last Admin: 06/15/19 22:03 Dose: 1 applic Oxycodone HCl (Roxicodone -) 10 mg PO Q6H PRN PRN Reason: PAIN LEVEL 7 - 10 Pantoprazole Sodium (Protonix -) 40 mg PO DAILY [facility] Last Admin: 06/15/19 09:22 Dose: 40 mg Polyethylene Glycol (Miralax (For Daily Use) -) 17 gm PO DAILY [facility] Last Admin: 06/15/19 09:23 Dose: Not Given Rivaroxaban (Xarelto) 15 mg PO DAILY@1800 [facility] Last Admin: 06/15/19 18:23 Dose: 15 mg Senna (Senna -) 1 tab PO BID [facility] Last Admin: 06/15/19 22:03 Dose: Not Given Review of Systems Cardiovascular: As noted above Respiratory: reports: Cough and Sputum Production Gastrointestinal: denies: Nausea, Vomiting, Diarrhea, Constipation or Abdominal Discomfort Musculoskeletal: No Symptoms Reported Endocrine: No Symptoms Reported` - Objective Vital Signs: Last Vital Signs Temp Pulse Resp BP Pulse Ox 98.0 F 81 20 132/79 93 L 06/16/19 05:43 06/16/19 05:43 06/16/19 05:43 06/16/19 05:43 06/15/19 21:00 Intake & Output 06/13/19 06/14/19 06/15/19 06/16/19 23:59 23:59 23:59 23:59 Intake Total 1650 1000 680 Balance 1650 1000 680 Weight 223 lb 9.6 oz Neck: Supple Negative JVD No Bruit Respiratory: Scattered Rhonchi Bilaterally Cardiovascular: S1 S2 Irregularly Irregular Gastrointestinal: Soft Benign Normal Bowel Sounds Ext: Edema Right Leg Hematoma/Cellulitis noted Labs: CBC, BMP 06/16/19 06:20 06/16/19 06:20 CBC, BMP 06/14/19 06:20 06/14/19 06:20 Hepatic Panel Total Bilirubin 0.6 mg/dL (0.2-1) 06/14/19 06:20 AST 13 U/L (15-37) L 06/14/19 06:20 ALT 16 U/L (13-61) 06/14/19 06:20 Alkaline Phosphatase 67 U/L (45-117) 06/14/19 06:20 Albumin 2.7 g/dl (3.4-5.0) L 06/14/19 06:20 INR, PTT INR 3.32 (0.83-1.09) H 06/09/19 23:10 Assessment/Plan ASSESSMENT: 1. Persistent atrial fibrillation [id number] score of 5 on DOAC's/Xarelto 2. CAD angina pectoris 3. Acute on chronic class I-II NYHA classification LV diastolic failure, clinically resolving 4. HTN 5. Hypercholesterolemia 6. Hematoma with cellulitis- right leg, clinically resolving PLAN: 1. Continue Toprol XL, hemodynamics permitting 2. Recommend the addition of ARBS unless it is absolutely contraindicated/ Diovan 3. Continue Xarelto but dose correction/20 mg daily, with caution 4. Continue Lasix with close monitoring of renal function and electrolytes 5. Antibiotic as per the primary team 6. Wound care/management as per the primary team Reyna Cain M.D.
[2019-06-16 07:47] LABS: BASO % 0.4 % (0-2.0); HEMATOCRIT 37.4 % (32.4-45.2); HEMOGLOBIN 12.8 GM/dL (10.7-15.3); LYMPH % 20.1 % (8-40); MCH 32.7 pg (25.7-33.7); MCHC 34.3 g/dl (32.0-36.0); MEAN CELL VOLUME 95.3 fl (80-96); MEAN PLT VOLUME 7.9 fl (7.5-11.1); MONO % 11.7 % (3.8-10.2); NEUT % 66.8 % (42.8-82.8); PLATELET COUNT 264 K/MM3 (134-434); RBC 3.92 M/mm3 (3.60-5.2); RDW 12.4 % (11.6-15.6); WHITE BLOOD COUNT 9.1 K/mm3 (4.0-10.0)
[2019-06-16 08:07] LABS: ALBUMIN 2.6 g/dl (3.4-5.0); BILIRUBIN,TOTAL 0.6 mg/dL (0.2-1); BLOOD UREA NITROGEN 19.2 mg/dL (7-18); CALCIUM 8.6 mg/dL (8.5-10.1); CREATININE 0.7 mg/dL (0.55-1.3); POTASSIUM 4.1 mmol/L (3.5-5.1)
[2019-06-16 08:14] LABS: INR 1.87 (0.83-1.09); PROTHROMBIN TIME (PATIENT) 22.2 SEC (9.7-13.0)
[2019-06-16] MEDS ORDERED: PT OWN MED DRAWER 7, Y5N ONE (08:32)
[2019-06-16] MEDS: AMOX TR/POT CLAV 500MG/125MG TABLETS (FP) PO SCH ×2 (08:34→17:26)
[2019-06-16] MEDS: ACETAMINOPHEN 325 MG TABLET (FP) PO PRN ×2 (08:36→21:54)
[2019-06-16] MEDS: SENNOSIDES 8.6MG TABLET (FP) PO SCH ×2 (10:42→23:54)
[2019-06-16] MEDS: VALSARTAN 40 MG TABLET (FP) PO SCH (10:42)
[2019-06-16] MEDS: POLYETHYLENE GLYCOL 3350 119 GM BTL PO SCH (10:42)
[2019-06-16] MEDS: FUROSEMIDE 40 MG TABLET (FP) PO SCH (10:42)
[2019-06-16] MEDS: PANTOPRAZOLE 40 MG TABLET (FP) PO SCH (10:42)
[2019-06-16] MEDS: NYSTATIN 100,000 UNIT/GM TOPICAL CREAM 15 GM TUBE TP SCH ×2 (10:46→21:55)
--- NOTE | 2019-06-16 12:51 | PN ---
Progress Note, Physician History of Present Illness: Pt is alert, afebrile. Currently c/o RLE pain after pillow placed underneath. Denies SOB currently. - Current Medication List Current Medications: Active Medications Acetaminophen (Tylenol -) 650 mg PO Q4H PRN PRN Reason: PAIN LEVEL 1-5 Last Admin: 06/16/19 08:36 Dose: 650 mg Amoxicillin/Clavulanate Potassium (Augmentin - 500mg Tablet) 1 tab PO BID@0800, 1730 [facility] Last Admin: 06/16/19 08:34 Dose: 1 tab Furosemide (Lasix -) 40 mg PO DAILY [facility] Last Admin: 06/16/19 10:42 Dose: 40 mg Guaifenesin (Robitussin -) 10 ml PO Q6H PRN PRN Reason: COUGH Last Admin: 06/12/19 16:24 Dose: 10 ml Meropenem 1 gm/ Dextrose 100 mls @ 200 mls/hr IVPB Q8H-IV [facility] Last Admin: 06/16/19 10:42 Dose: 200 mls/hr Metoprolol Succinate (Toprol Xl -) 50 mg PO BID [facility] Last Admin: 06/16/19 10:42 Dose: 50 mg Nystatin (Mycostatin Cream -) 1 applic TP BID [facility] Last Admin: 06/16/19 10:46 Dose: 1 applic Oxycodone HCl (Roxicodone -) 10 mg PO Q6H PRN PRN Reason: PAIN LEVEL 7 - 10 Pantoprazole Sodium (Protonix -) 40 mg PO DAILY [facility] Last Admin: 06/16/19 10:42 Dose: 40 mg Polyethylene Glycol (Miralax (For Daily Use) -) 17 gm PO DAILY [facility] Last Admin: 06/16/19 10:42 Dose: Not Given Rivaroxaban (Xarelto) 20 mg PO DAILY@1800 [facility] Senna (Senna -) 1 tab PO BID [facility] Last Admin: 06/16/19 10:42 Dose: Not Given Valsartan (Diovan -) 40 mg PO DAILY [facility] Last Admin: 06/16/19 10:42 Dose: 40 mg - Objective Vital Signs: Vital Signs Temperature 98.0 F 06/16/19 05:43 Pulse Rate 81 06/16/19 05:43 Respiratory Rate 20 06/16/19 05:43 Blood Pressure 132/79 06/16/19 05:43 O2 Sat by Pulse Oximetry (%) 95 06/16/19 08:40 Constitutional: Yes: No Distress, Calm Eyes: Yes: Conjunctiva Clear Cardiovascular: Yes: Pulse Irregular Respiratory: Yes: Diminished Gastrointestinal: Yes: Normal Bowel Sounds, Soft Extremities: Yes: Erythema (RLE erythema/tenderness, Rt ashley hematoma) Neurological: Yes: Alert, Oriented Labs: CBC, BMP 06/16/19 06:20 06/16/19 06:20 INR, PTT INR 1.87 (0.83-1.09) H 06/16/19 06:20 Microbiology 06/09/19 23:10 Blood - Peripheral Venous Blood Culture - Final NO GROWTH AFTER 5 DAYS INCUBATION 06/09/19 23:10 Blood - Peripheral Venous Blood Culture - Final NO GROWTH AFTER 5 DAYS INCUBATION 06/09/19 23:10 Calf - Right Medial Gram Stain - Final 06/09/19 23:10 Calf - Right Medial Wound Culture - Final Escherichia Coli Esbl [employer] Reporter Enterococcus Faecalis Staphylococcus Coagulase Neg - ....Imaging Chest X-ray: Report Reviewed Problem List - Problems (1) A-fib Code(s): I48.91 - UNSPECIFIED ATRIAL FIBRILLATION Qualifiers: Atrial fibrillation type: unspecified chronic Qualified Code(s): I48.20 - Chronic atrial fibrillation, unspecified; I48.2 - Chronic atrial fibrillation (2) CHF (congestive heart failure) Code(s): I50.9 - HEART FAILURE, UNSPECIFIED (3) Cellulitis of right leg Code(s): L03.115 - CELLULITIS OF RIGHT LOWER LIMB (4) HLD (hyperlipidemia) Code(s): E78.5 - HYPERLIPIDEMIA, UNSPECIFIED (5) HTN (hypertension) Code(s): I10 - ESSENTIAL (PRIMARY) HYPERTENSION (6) Hematoma of right lower extremity Code(s): S80.11XA - CONTUSION OF RIGHT LOWER LEG, INITIAL ENCOUNTER Qualifiers: Encounter type: initial encounter Qualified Code(s): S80.11XA - Contusion of right lower leg, initial encounter (7) Obesity Code(s): E66.9 - OBESITY, UNSPECIFIED Assessment/Plan RLE cellulitis RLE hematoma CHF AFIB HTN HLD Obesity -- Pt afebrile/tolerating antibiotics -- Culture results noted - continue Meropenem/Augmentin, on contact isolation -- continue monitor site for improvement -- No current SOB - if persistent cough, repeat CXR
--- NOTE | 2019-06-16 15:54 | PN ---
Progress Note (short form) - Note Progress Note: Decreased pain in right leg, decreased erythema Vital Signs - 24 hr 06/15/19 06/15/19 06/16/19 17:47 21:00 02:00 Temperature 98.3 F 98.2 F 98.0 F Pulse Rate 84 94 H 79 Respiratory 18 20 18 Rate Blood Pressure 123/95 132/75 143/82 O2 Sat by Pulse 93 L Oximetry (%) 06/16/19 06/16/19 06/16/19 05:43 08:40 14:00 Temperature 98.0 F 98.1 F Pulse Rate 81 81 Respiratory 20 18 Rate Blood Pressure 132/79 104/64 O2 Sat by Pulse 95 Oximetry (%) Current Medications Generic Name Dose Route Start Last Admin Trade Name Freq PRN Reason Stop Dose Admin Acetaminophen 650 mg 06/10/19 02:56 06/16/19 08:36 Tylenol - PO 650 mg Q4H PRN Administration PAIN LEVEL 1-5 Amoxicillin/Clavulanate Potassium 1 tab 06/12/19 17:30 06/16/19 08:34 Augmentin - 500mg Tablet PO 1 tab BID@0800,1730 [facility] Administration Furosemide 40 mg 06/11/19 10:00 06/16/19 10:42 Lasix - PO 40 mg DAILY [facility] Administration Guaifenesin 10 ml 06/12/19 13:37 06/12/19 16:24 Robitussin - PO 10 ml Q6H PRN Administration COUGH Meropenem 1 gm/ Dextrose 100 mls @ 200 mls/hr 06/12/19 12:45 06/16/19 10:42 IVPB 200 mls/hr Q8H-IV [facility] Administration Metoprolol Succinate 50 mg 06/10/19 10:00 06/16/19 10:42 Toprol Xl - PO 50 mg BID [facility] Administration Nystatin 1 applic 06/12/19 13:45 06/16/19 10:46 Mycostatin Cream - TP 1 applic BID [facility] Administration Oxycodone HCl 10 mg 06/16/19 05:47 Roxicodone - PO Q6H PRN PAIN LEVEL 7 - 10 Pantoprazole Sodium 40 mg 06/12/19 13:45 06/16/19 10:42 Protonix - PO 40 mg DAILY [facility] Administration Polyethylene Glycol 17 gm 06/14/19 11:45 06/16/19 10:42 Miralax (For Daily Use) - PO Not Given DAILY [facility] Rivaroxaban 20 mg 06/16/19 18:00 Xarelto PO DAILY@1800 [facility] Senna 1 tab 06/10/19 10:00 06/16/19 10:42 Senna - PO Not Given BID [facility] Valsartan 40 mg 06/16/19 10:30 06/16/19 10:42 Diovan - PO 40 mg DAILY [facility] Administration Laboratory Results - last 24 hr 06/16/19 06/16/19 06/16/19 06:20 06:20 06:20 WBC 9.1 RBC 3.92 Hgb 12.8 Hct 37.4 MCV 95.3 MCH 32.7 MCHC 34.3 RDW 12.4 Plt Count 264 MPV 7.9 Absolute Neuts (auto) 6.0 Neutrophils % 66.8 Lymphocytes % 20.1 Monocytes % 11.7 H Eosinophils % 1.0 Basophils % 0.4 Nucleated RBC % 0 PT with INR 22.20 H INR 1.87 H Sodium 137 Potassium 4.1 Chloride 100 Carbon Dioxide 33 H Anion Gap 4 L BUN 19.2 H Creatinine 0.7 Est GFR (CKD-EPI)AfAm 92.86 Est GFR (CKD-EPI)NonAf 80.12 Random Glucose 93 Calcium 8.6 Total Bilirubin 0.6 AST 19 ALT 24 Alkaline Phosphatase 73 Total Protein 6.0 L Albumin 2.6 L Microbiology 06/09/19 23:10 Blood - Peripheral Venous Blood Culture - Preliminary NO GROWTH OBTAINED AFTER 72 HOURS, INCUBATION TO CONTINUE FOR 2 DAYS. 06/09/19 23:10 Blood - Peripheral Venous Blood Culture - Preliminary NO GROWTH OBTAINED AFTER 72 HOURS, INCUBATION TO CONTINUE FOR 2 DAYS. 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 Enterococcus Faecalis Staphylococcus Coagulase Neg S1 S2 RRR Lungs clear Abd- soft, NT Edema right leg Hematoma+ decreased size , slight opening noted on hematoma Decreased erythema tender PLAN IV antibiotics pain control OOB continue Xarelto physical therapy Problem List - Problems (1) A-fib Code(s): I48.91 - UNSPECIFIED ATRIAL FIBRILLATION Qualifiers: Atrial fibrillation type: unspecified chronic Qualified Code(s): I48.20 - Chronic atrial fibrillation, unspecified; I48.2 - Chronic atrial fibrillation (2) Anxiety Code(s): F41.9 - ANXIETY DISORDER, UNSPECIFIED (3) Cellulitis of right leg Code(s): L03.115 - CELLULITIS OF RIGHT LOWER LIMB (4) HLD (hyperlipidemia) Code(s): E78.5 - HYPERLIPIDEMIA, UNSPECIFIED (5) HTN (hypertension) Code(s): I10 - ESSENTIAL (PRIMARY) HYPERTENSION (6) Hematoma of right lower extremity Code(s): S80.11XA - CONTUSION OF RIGHT LOWER LEG, INITIAL ENCOUNTER Qualifiers: Encounter type: initial encounter Qualified Code(s): S80.11XA - Contusion of right lower leg, initial encounter
[2019-06-16] MEDS: RIVAROXABAN 20 MG TABLET PO SCH (17:26)
[2019-06-17] MEDS ORDERED: MEROPENEM 1 GM VIAL (RESTRICTED TO ID) IVPB ONE ×3 (01:30→15:40)
[2019-06-17] MEDS ORDERED: DEXTROSE 5%-WATER 100 ML IVPB ONE ×3 (01:30→15:41)
[2019-06-17] MEDS: MEROPENEM 1 GM in DEXTROSE 5%-WATER 100 ML IVPB SCH ×3 (02:19→17:30)
--- NOTE | 2019-06-17 07:46 | PN ---
Progress Note (short form) - Note Progress Note: Chief Complaint: Events noted, notes reviewed, denies any chest pain, reports persistent dyspnea and cough History of Present Illness: Seen and examined on telemetry. Events noted, notes reviewed, denies any chest pain, reports persistent dyspnea and cough - Current Medication List Current Medications Acetaminophen (Tylenol -) 650 mg PO Q4H PRN PRN Reason: PAIN LEVEL 1-5 Last Admin: 06/16/19 21:54 Dose: 650 mg Amoxicillin/Clavulanate Potassium (Augmentin - 500mg Tablet) 1 tab PO BID@0800, 1730 [facility] Last Admin: 06/17/19 08:46 Dose: 1 tab Furosemide (Lasix -) 40 mg PO DAILY [facility] Last Admin: 06/17/19 09:39 Dose: 40 mg Guaifenesin (Robitussin -) 10 ml PO Q6H PRN PRN Reason: COUGH Last Admin: 06/12/19 16:24 Dose: 10 ml Meropenem 1 gm/ Dextrose 100 mls @ 200 mls/hr IVPB Q8H-IV [facility] Last Admin: 06/17/19 02:19 Dose: 200 mls/hr Metoprolol Succinate (Toprol Xl -) 50 mg PO BID [facility] Last Admin: 06/17/19 09:40 Dose: 50 mg Nystatin (Mycostatin Cream -) 1 applic TP BID [facility] Last Admin: 06/17/19 09:40 Dose: 1 applic Oxycodone HCl (Roxicodone -) 10 mg PO Q6H PRN PRN Reason: PAIN LEVEL 7 - 10 Pantoprazole Sodium (Protonix -) 40 mg PO DAILY [facility] Last Admin: 06/17/19 09:39 Dose: 40 mg Polyethylene Glycol (Miralax (For Daily Use) -) 17 gm PO DAILY [facility] Last Admin: 06/16/19 10:42 Dose: Not Given Rivaroxaban (Xarelto) 20 mg PO DAILY@1800 [facility] Last Admin: 06/16/19 17:26 Dose: 20 mg Senna (Senna -) 1 tab PO BID [facility] Last Admin: 06/17/19 09:39 Dose: Not Given Valsartan (Diovan -) 40 mg PO DAILY [facility] Last Admin: 06/17/19 09:40 Dose: 40 mg Review of Systems Cardiovascular: As noted above Respiratory: reports: Cough and Sputum Production Gastrointestinal: denies: Nausea, Vomiting, Diarrhea, Constipation or Abdominal Discomfort Musculoskeletal: No Symptoms Reported Endocrine: No Symptoms Reported` - Objective Vital Signs: Last Vital Signs Temp Pulse Resp BP Pulse Ox 98.1 F 70 18 129/79 95 06/17/19 06:00 06/17/19 06:00 06/17/19 06:00 06/17/19 06:00 06/16/19 20:14 Intake & Output 06/14/19 06/15/19 06/16/19 06/17/19 23:59 23:59 23:59 23:59 Intake Total 1000 680 990 100 Balance 1000 680 990 100 Neck: Supple Negative JVD No Bruit Respiratory: Scattered Rhonchi Bilaterally Cardiovascular: S1 S2 Irregularly Irregular Gastrointestinal: Soft Benign Normal Bowel Sounds Ext: Edema Right Leg Hematoma/Cellulitis noted Labs: CBC, BMP 06/16/19 06:20 06/16/19 06:20 Hepatic Panel Total Bilirubin 0.6 mg/dL (0.2-1) 06/16/19 06:20 AST 19 U/L (15-37) 06/16/19 06:20 ALT 24 U/L (13-61) 06/16/19 06:20 Alkaline Phosphatase 73 U/L (45-117) 06/16/19 06:20 Albumin 2.6 g/dl (3.4-5.0) L 06/16/19 06:20 INR, PTT INR 1.87 (0.83-1.09) H 06/16/19 06:20 Assessment/Plan ASSESSMENT: 1. Persistent atrial fibrillation [id number] score of 5 on DOAC's/Xarelto 2. CAD angina pectoris 3. Acute on chronic class I-II NYHA classification LV diastolic failure, clinically resolving 4. HTN 5. Hypercholesterolemia 6. Hematoma with cellulitis- right leg, clinically resolving PLAN: 1. Continue Toprol XL, hemodynamics permitting 2. Continue Diovan, hemodynamics permitting with close monitoring of renal function and electrolytes 3. Continue Xarelto at 20 mg daily, with caution and close monitoring of CBC/Hg 4. Continue Lasix with close monitoring of renal function and electrolytes 5. Antibiotic as per the primary team 6. Wound care/management as per the primary team Reyna Cain M.D.
[2019-06-17] MEDS ORDERED: PT OWN MED DRAWER 7, Y5N ONE ×2 (08:27→09:36)
[2019-06-17] MEDS: AMOX TR/POT CLAV 500MG/125MG TABLETS (FP) PO SCH ×2 (08:46→17:30)
[2019-06-17] MEDS: FUROSEMIDE 40 MG TABLET (FP) PO SCH (09:39)
[2019-06-17] MEDS: PANTOPRAZOLE 40 MG TABLET (FP) PO SCH (09:39)
[2019-06-17] MEDS: SENNOSIDES 8.6MG TABLET (FP) PO SCH ×2 (09:39→21:15)
[2019-06-17] MEDS: VALSARTAN 40 MG TABLET (FP) PO SCH (09:40)
[2019-06-17] MEDS: NYSTATIN 100,000 UNIT/GM TOPICAL CREAM 15 GM TUBE TP SCH ×2 (09:40→21:23)
[2019-06-17] MEDS: POLYETHYLENE GLYCOL 3350 119 GM BTL PO SCH (10:54)
--- NOTE | 2019-06-17 15:08 | PN ---
Progress Note, Physician History of Present Illness: Pt states her leg is feeling better, less swollen/red but still with pain. - Current Medication List Current Medications: Active Medications Acetaminophen (Tylenol -) 650 mg PO Q4H PRN PRN Reason: PAIN LEVEL 1-5 Last Admin: 06/16/19 21:54 Dose: 650 mg Amoxicillin/Clavulanate Potassium (Augmentin - 500mg Tablet) 1 tab PO BID@0800, 1730 [facility] Last Admin: 06/17/19 08:46 Dose: 1 tab Furosemide (Lasix -) 40 mg PO DAILY [facility] Last Admin: 06/17/19 09:39 Dose: 40 mg Guaifenesin (Robitussin -) 10 ml PO Q6H PRN PRN Reason: COUGH Last Admin: 06/12/19 16:24 Dose: 10 ml Meropenem 1 gm/ Dextrose 100 mls @ 200 mls/hr IVPB Q8H-IV [facility] Last Admin: 06/17/19 10:54 Dose: 200 mls/hr Metoprolol Succinate (Toprol Xl -) 50 mg PO BID [facility] Last Admin: 06/17/19 09:40 Dose: 50 mg Nystatin (Mycostatin Cream -) 1 applic TP BID [facility] Last Admin: 06/17/19 09:40 Dose: 1 applic Oxycodone HCl (Roxicodone -) 10 mg PO Q6H PRN PRN Reason: PAIN LEVEL 7 - 10 Last Admin: 06/17/19 12:56 Dose: 10 mg Pantoprazole Sodium (Protonix -) 40 mg PO DAILY [facility] Last Admin: 06/17/19 09:39 Dose: 40 mg Polyethylene Glycol (Miralax (For Daily Use) -) 17 gm PO DAILY [facility] Last Admin: 06/17/19 10:54 Dose: Not Given Rivaroxaban (Xarelto) 20 mg PO DAILY@1800 [facility] Last Admin: 06/16/19 17:26 Dose: 20 mg Senna (Senna -) 1 tab PO BID [facility] Last Admin: 06/17/19 09:39 Dose: Not Given Valsartan (Diovan -) 40 mg PO DAILY [facility] Last Admin: 06/17/19 09:40 Dose: 40 mg - Objective Vital Signs: Vital Signs Temperature 98.1 F 06/17/19 13:30 Pulse Rate 92 H 06/17/19 13:30 Respiratory Rate 18 06/17/19 13:30 Blood Pressure 128/77 06/17/19 13:30 O2 Sat by Pulse Oximetry (%) 95 06/17/19 09:00 Constitutional: Yes: No Distress, Calm Cardiovascular: Yes: Pulse Irregular Respiratory: Yes: Regular Gastrointestinal: Yes: Normal Bowel Sounds, Soft Genitourinary: Yes: WNL Extremities: Yes: Erythema (RT tibial hematoma, decreasing erythema/edema) Neurological: Yes: Alert Labs: CBC, BMP 06/16/19 06:20 06/16/19 06:20 INR, PTT INR 1.87 (0.83-1.09) H 06/16/19 06:20 Microbiology 06/09/19 23:10 Blood - Peripheral Venous Blood Culture - Final NO GROWTH AFTER 5 DAYS INCUBATION 06/09/19 23:10 Blood - Peripheral Venous Blood Culture - Final NO GROWTH AFTER 5 DAYS INCUBATION 06/09/19 23:10 Calf - Right Medial Gram Stain - Final 06/09/19 23:10 Calf - Right Medial Wound Culture - Final Escherichia Coli Esbl [employer] Enterococcus Faecalis Staphylococcus Coagulase Neg Problem List - Problems (1) A-fib Code(s): I48.91 - UNSPECIFIED ATRIAL FIBRILLATION Qualifiers: Atrial fibrillation type: unspecified chronic Qualified Code(s): I48.20 - Chronic atrial fibrillation, unspecified; I48.2 - Chronic atrial fibrillation (2) CHF (congestive heart failure) Code(s): I50.9 - HEART FAILURE, UNSPECIFIED (3) Cellulitis of right leg Code(s): L03.115 - CELLULITIS OF RIGHT LOWER LIMB (4) HLD (hyperlipidemia) Code(s): E78.5 - HYPERLIPIDEMIA, UNSPECIFIED (5) HTN (hypertension) Code(s): I10 - ESSENTIAL (PRIMARY) HYPERTENSION (6) Hematoma of right lower extremity Code(s): S80.11XA - CONTUSION OF RIGHT LOWER LEG, INITIAL ENCOUNTER Qualifiers: Encounter type: initial encounter Qualified Code(s): S80.11XA - Contusion of right lower leg, initial encounter (7) Obesity Code(s): E66.9 - OBESITY, UNSPECIFIED Assessment/Plan RLE cellulitis RLE hematoma CHF AFIB HTN HLD Obesity -- Pt afebrile/tolerating antibiotics -- Continue current antibiotics, on contact isolation -- RLE erythema/edema improving -- No current SOB , afebrile, without leukocytosis
--- NOTE | 2019-06-17 17:22 | PN ---
Progress Note (short form) - Note Progress Note: Decreased pain in right leg, decreased erythema Vital Signs - 24 hr 06/16/19 06/16/19 06/17/19 18:23 20:14 06:00 Temperature 98.1 F 98.4 F 98.1 F Pulse Rate 91 H 83 70 Respiratory 18 20 18 Rate Blood Pressure 117/66 119/66 129/79 O2 Sat by Pulse 95 Oximetry (%) 06/17/19 06/17/19 06/17/19 09:00 10:00 13:30 Temperature 98 F 98.1 F Pulse Rate 68 92 H Respiratory 18 18 18 Rate Blood Pressure 134/88 128/77 O2 Sat by Pulse 95 Oximetry (%) Current Medications Generic Name Dose Route Start Last Admin Trade Name Freq PRN Reason Stop Dose Admin Acetaminophen 650 mg 06/10/19 02:56 06/16/19 21:54 Tylenol - PO 650 mg Q4H PRN Administration PAIN LEVEL 1-5 Amoxicillin/Clavulanate Potassium 1 tab 06/12/19 17:30 06/17/19 08:46 Augmentin - 500mg Tablet PO 1 tab BID@0800,1730 [facility] Administration Furosemide 40 mg 06/11/19 10:00 06/17/19 09:39 Lasix - PO 40 mg DAILY [facility] Administration Guaifenesin 10 ml 06/12/19 13:37 06/12/19 16:24 Robitussin - PO 10 ml Q6H PRN Administration COUGH Meropenem 1 gm/ Dextrose 100 mls @ 200 mls/hr 06/12/19 12:45 06/17/19 10:54 IVPB 200 mls/hr Q8H-IV [facility] Administration Metoprolol Succinate 50 mg 06/10/19 10:00 06/17/19 09:40 Toprol Xl - PO 50 mg BID [facility] Administration Nystatin 1 applic 06/12/19 13:45 06/17/19 09:40 Mycostatin Cream - TP 1 applic BID [facility] Administration Oxycodone HCl 10 mg 06/16/19 05:47 06/17/19 12:56 Roxicodone - PO 10 mg Q6H PRN Administration PAIN LEVEL 7 - 10 Pantoprazole Sodium 40 mg 06/12/19 13:45 06/17/19 09:39 Protonix - PO 40 mg DAILY [facility] Administration Polyethylene Glycol 17 gm 06/14/19 11:45 06/17/19 10:54 Miralax (For Daily Use) - PO Not Given DAILY [facility] Rivaroxaban 20 mg 06/16/19 18:00 06/16/19 17:26 Xarelto PO 20 mg DAILY@1800 [facility] Administration Senna 1 tab 06/10/19 10:00 06/17/19 09:39 Senna - PO Not Given BID [facility] Valsartan 40 mg 06/16/19 10:30 06/17/19 09:40 Diovan - PO 40 mg DAILY [facility] Administration Microbiology 06/09/19 23:10 Blood - Peripheral Venous Blood Culture - Preliminary NO GROWTH OBTAINED AFTER 72 HOURS, INCUBATION TO CONTINUE FOR 2 DAYS. 06/09/19 23:10 Blood - Peripheral Venous Blood Culture - Preliminary NO GROWTH OBTAINED AFTER 72 HOURS, INCUBATION TO CONTINUE FOR 2 DAYS. 06/09/19 23:10 Calf - Right Medial Gram Stain - Final 06/09/19 23:10 Calf - Right Medial Wound Culture - Final Escherichia Coli Esbl [employer] Enterococcus Faecalis Staphylococcus Coagulase Neg S1 S2 RRR Lungs clear Abd- soft, NT Edema right leg Hematoma+ decreased size , slight opening noted on hematoma rash underneath intra-abd folds Decreased erythema tender PLAN IV antibiotics pain control OOB continue Xarelto physical therapy antifungal cream to intra-abd folds Problem List - Problems (1) A-fib Code(s): I48.91 - UNSPECIFIED ATRIAL FIBRILLATION Qualifiers: Atrial fibrillation type: unspecified chronic Qualified Code(s): I48.20 - Chronic atrial fibrillation, unspecified; I48.2 - Chronic atrial fibrillation (2) Anxiety Code(s): F41.9 - ANXIETY DISORDER, UNSPECIFIED (3) Cellulitis of right leg Code(s): L03.115 - CELLULITIS OF RIGHT LOWER LIMB (4) HLD (hyperlipidemia) Code(s): E78.5 - HYPERLIPIDEMIA, UNSPECIFIED (5) HTN (hypertension) Code(s): I10 - ESSENTIAL (PRIMARY) HYPERTENSION (6) Hematoma of right lower extremity Code(s): S80.11XA - CONTUSION OF RIGHT LOWER LEG, INITIAL ENCOUNTER Qualifiers: Encounter type: initial encounter Qualified Code(s): S80.11XA - Contusion of right lower leg, initial encounter
[2019-06-17] MEDS: RIVAROXABAN 20 MG TABLET PO SCH (17:46)
[2019-06-17] MEDS: oxyCODONE HCL 5 MG TABLET PO PRN (22:02)
[2019-06-18] MEDS ORDERED: MEROPENEM 1 GM VIAL (RESTRICTED TO ID) IVPB ONE ×3 (02:11→16:52)
[2019-06-18] MEDS ORDERED: DEXTROSE 5%-WATER 100 ML IVPB ONE ×3 (02:11→16:52)
[2019-06-18] MEDS: MEROPENEM 1 GM in DEXTROSE 5%-WATER 100 ML IVPB SCH ×3 (02:16→17:50)
[2019-06-18] MEDS ORDERED: PT OWN MED DRAWER 7, Y5N ONE ×3 (07:57→21:07)
[2019-06-18] MEDS: AMOX TR/POT CLAV 500MG/125MG TABLETS (FP) PO SCH ×2 (08:37→17:50)
[2019-06-18] MEDS: FUROSEMIDE 40 MG TABLET (FP) PO SCH (09:35)
[2019-06-18] MEDS: PANTOPRAZOLE 40 MG TABLET (FP) PO SCH (09:35)
[2019-06-18] MEDS: VALSARTAN 40 MG TABLET (FP) PO SCH (09:35)
[2019-06-18] MEDS: NYSTATIN 100,000 UNIT/GM TOPICAL CREAM 15 GM TUBE TP SCH ×2 (09:36→21:11)
[2019-06-18] MEDS: POLYETHYLENE GLYCOL 3350 119 GM BTL PO SCH (09:36)
[2019-06-18] MEDS: SENNOSIDES 8.6MG TABLET (FP) PO SCH ×2 (09:36→21:11)
--- NOTE | 2019-06-18 10:37 | PN ---
Progress Note, Physician Chief Complaint: Events noted Feeling better History of Present Illness: Patient was seen and examined. Awake and alert. Chart was reviewed Denies chest pain or palpitations - Current Medication List Current Medications: Active Medications Acetaminophen (Tylenol -) 650 mg PO Q4H PRN PRN Reason: PAIN LEVEL 1-5 Last Admin: 06/16/19 21:54 Dose: 650 mg Amoxicillin/Clavulanate Potassium (Augmentin - 500mg Tablet) 1 tab PO BID@0800, 1730 [facility] Last Admin: 06/18/19 08:37 Dose: 1 tab Furosemide (Lasix -) 40 mg PO DAILY [facility] Last Admin: 06/18/19 09:35 Dose: 40 mg Guaifenesin (Robitussin -) 10 ml PO Q6H PRN PRN Reason: COUGH Last Admin: 06/12/19 16:24 Dose: 10 ml Meropenem 1 gm/ Dextrose 100 mls @ 200 mls/hr IVPB Q8H-IV [facility] Last Admin: 06/18/19 09:34 Dose: 200 mls/hr Metoprolol Succinate (Toprol Xl -) 50 mg PO BID [facility] Last Admin: 06/18/19 09:35 Dose: 50 mg Nystatin (Mycostatin Cream -) 1 applic TP BID [facility] Last Admin: 06/18/19 09:36 Dose: 1 applic Oxycodone HCl (Roxicodone -) 5 mg PO Q6H PRN PRN Reason: PAIN LEVEL 7 - 10 Last Admin: 06/17/19 22:02 Dose: 5 mg Pantoprazole Sodium (Protonix -) 40 mg PO DAILY [facility] Last Admin: 06/18/19 09:35 Dose: 40 mg Polyethylene Glycol (Miralax (For Daily Use) -) 17 gm PO DAILY [facility] Last Admin: 06/18/19 09:36 Dose: Not Given Rivaroxaban (Xarelto) 20 mg PO DAILY@1800 [facility] Last Admin: 06/17/19 17:46 Dose: 20 mg Senna (Senna -) 1 tab PO BID [facility] Last Admin: 06/18/19 09:36 Dose: Not Given Valsartan (Diovan -) 40 mg PO DAILY [facility] Last Admin: 06/18/19 09:35 Dose: 40 mg - Objective Vital Signs: Vital Signs Temperature 98.1 F 06/18/19 09:32 Pulse Rate 73 06/18/19 09:32 Respiratory Rate 18 06/18/19 09:32 Blood Pressure 140/79 06/18/19 09:32 O2 Sat by Pulse Oximetry (%) 98 06/17/19 21:00 Eyes: Yes: PERRL HENT: Yes: Atraumatic Neck: Yes: Supple Cardiovascular: Yes: Pulse Irregular, S1, S2 Respiratory: Yes: Diminished Gastrointestinal: Yes: Normal Bowel Sounds, Soft. No: Tenderness Edema: Yes Additional Findings/Remarks: - Review of Systems Constitutional: denies: Chills, Fever Cardiovascular: denies: Chest Pain, Palpitations, Shortness of Breath Respiratory: denies: Cough, Hemoptysis, Orthopnea, PND, SOB, SOB on Exertion Gastrointestinal: denies: Abdominal Pain, Constipation, Diarrhea, Melena, Nausea , Rectal Bleeding, Vomiting Genitourinary: denies: Dysuria, Hematuria Neurological: denies: Headache, Seizure, Syncope Problem List - Problems (1) A-fib Code(s): I48.91 - UNSPECIFIED ATRIAL FIBRILLATION Qualifiers: Atrial fibrillation type: unspecified chronic Qualified Code(s): I48.20 - Chronic atrial fibrillation, unspecified; I48.2 - Chronic atrial fibrillation (2) CHF (congestive heart failure) Code(s): I50.9 - HEART FAILURE, UNSPECIFIED (3) Cellulitis of right leg Code(s): L03.115 - CELLULITIS OF RIGHT LOWER LIMB (4) HLD (hyperlipidemia) Code(s): E78.5 - HYPERLIPIDEMIA, UNSPECIFIED (5) HTN (hypertension) Code(s): I10 - ESSENTIAL (PRIMARY) HYPERTENSION (6) Hematoma of right lower extremity Code(s): S80.11XA - CONTUSION OF RIGHT LOWER LEG, INITIAL ENCOUNTER Qualifiers: Encounter type: initial encounter Qualified Code(s): S80.11XA - Contusion of right lower leg, initial encounter Assessment/Plan 1. Persistent atrial fibrillation [id number] score of 5 on DOAC's/Xarelto 2. CAD angina pectoris 3. Acute on chronic class I-II NYHA classification LV diastolic failure, clinically resolving 4. HTN 5. Hypercholesterolemia 6. Hematoma with cellulitis - right leg, clinically resolving PLAN: 1. Continue Toprol XL as tolerated 2. Continue Diovan as tolerated 3. Continue Xarelto 20 mg daily, with caution and close monitoring of CBC 4. Continue Lasix with close monitoring of renal function and electrolytes 5. Antibiotic 6. Wound care/management García Velásqeuz MD
--- NOTE | 2019-06-18 11:12 | PN ---
Progress Note (short form) - Note Progress Note: Pt seen/ examined chart reviewed. awake/ comfortable feels better decreased swelling - flotation tender helper mild oozing + Vital Signs Temp 98.1 F 06/18/19 09:32 Pulse 73 06/18/19 09:32 Resp 18 06/18/19 09:32 BP 140/79 06/18/19 09:32 Pulse Ox 95 06/18/19 09:00 Intake & Output 06/17/19 06/17/19 06/18/19 11:59 23:59 11:59 Intake Total 100 1850 100 Output Total 1000 Balance 100 1850 -900 Weight 224 lb 9 oz Intake: IVPB 100 200 Oral 1650 100 Output: Urine 1000 Void 1000 Other: Voiding Method Incontinent Bedpan Bedpan # Unmeasured Voids Void 2 1 Bowel Movement No Yes # Bowel Movements 2 Weight Measurement Method Built in Bedscale Active Medications Acetaminophen (Tylenol -) 650 mg PO Q4H PRN PRN Reason: PAIN LEVEL 1-5 Last Admin: 06/16/19 21:54 Dose: 650 mg Amoxicillin/Clavulanate Potassium (Augmentin - 500mg Tablet) 1 tab PO BID@0800, 1730 [facility] Last Admin: 06/18/19 08:37 Dose: 1 tab Furosemide (Lasix -) 40 mg PO DAILY [facility] Last Admin: 06/18/19 09:35 Dose: 40 mg Guaifenesin (Robitussin -) 10 ml PO Q6H PRN PRN Reason: COUGH Last Admin: 06/12/19 16:24 Dose: 10 ml Meropenem 1 gm/ Dextrose 100 mls @ 200 mls/hr IVPB Q8H-IV [facility] Last Admin: 06/18/19 09:34 Dose: 200 mls/hr Metoprolol Succinate (Toprol Xl -) 50 mg PO BID [facility] Last Admin: 06/18/19 09:35 Dose: 50 mg Nystatin (Mycostatin Cream -) 1 applic TP BID [facility] Last Admin: 06/18/19 09:36 Dose: 1 applic Oxycodone HCl (Roxicodone -) 5 mg PO Q6H PRN PRN Reason: PAIN LEVEL 7 - 10 Last Admin: 06/17/19 22:02 Dose: 5 mg Pantoprazole Sodium (Protonix -) 40 mg PO DAILY [facility] Last Admin: 06/18/19 09:35 Dose: 40 mg Polyethylene Glycol (Miralax (For Daily Use) -) 17 gm PO DAILY [facility] Last Admin: 06/18/19 09:36 Dose: Not Given Rivaroxaban (Xarelto) 20 mg PO DAILY@1800 [facility] Last Admin: 06/17/19 17:46 Dose: 20 mg Senna (Senna -) 1 tab PO BID [facility] Last Admin: 06/18/19 09:36 Dose: Not Given Valsartan (Diovan -) 40 mg PO DAILY [facility] Last Admin: 06/18/19 09:35 Dose: 40 mg CBC, BMP 06/16/19 06:20 06/16/19 06:20 INR, PTT INR 1.87 (0.83-1.09) H 06/16/19 06:20 Physical Exam Awake/ Comfortable. S1 S2 RRR Lungs clear Abd- soft, NT Edema right leg Hematoma+ decreased size , slight opening noted on hematoma rash underneath intra-abd folds Decreased erythema tender PLAN IV antibiotics pain control OOB continue Xarelto physical therapy antifungal cream to intra-abd folds d/w RN also Problem List - Problems (1) Cellulitis of right leg Code(s): L03.115 - CELLULITIS OF RIGHT LOWER LIMB (2) HLD (hyperlipidemia) Code(s): E78.5 - HYPERLIPIDEMIA, UNSPECIFIED (3) HTN (hypertension) Code(s): I10 - ESSENTIAL (PRIMARY) HYPERTENSION (4) Hematoma of right lower extremity Code(s): S80.11XA - CONTUSION OF RIGHT LOWER LEG, INITIAL ENCOUNTER Qualifiers: Encounter type: initial encounter Qualified Code(s): S80.11XA - Contusion of right lower leg, initial encounter (5) CHF (congestive heart failure) Code(s): I50.9 - HEART FAILURE, UNSPECIFIED (6) A-fib Code(s): I48.91 - UNSPECIFIED ATRIAL FIBRILLATION Qualifiers: Atrial fibrillation type: unspecified chronic Qualified Code(s): I48.20 - Chronic atrial fibrillation, unspecified; I48.2 - Chronic atrial fibrillation
--- NOTE | 2019-06-18 14:45 | PN ---
Progress Note, Physician History of Present Illness: stable no new issues - Current Medication List Current Medications: Active Medications Acetaminophen (Tylenol -) 650 mg PO Q4H PRN PRN Reason: PAIN LEVEL 1-5 Last Admin: 06/16/19 21:54 Dose: 650 mg Amoxicillin/Clavulanate Potassium (Augmentin - 500mg Tablet) 1 tab PO BID@0800, 1730 [facility] Last Admin: 06/18/19 08:37 Dose: 1 tab Furosemide (Lasix -) 40 mg PO DAILY [facility] Last Admin: 06/18/19 09:35 Dose: 40 mg Guaifenesin (Robitussin -) 10 ml PO Q6H PRN PRN Reason: COUGH Last Admin: 06/12/19 16:24 Dose: 10 ml Meropenem 1 gm/ Dextrose 100 mls @ 200 mls/hr IVPB Q8H-IV [facility] Last Admin: 06/18/19 09:34 Dose: 200 mls/hr Metoprolol Succinate (Toprol Xl -) 50 mg PO BID [facility] Last Admin: 06/18/19 09:35 Dose: 50 mg Nystatin (Mycostatin Cream -) 1 applic TP BID [facility] Last Admin: 06/18/19 09:36 Dose: 1 applic Oxycodone HCl (Roxicodone -) 5 mg PO Q6H PRN PRN Reason: PAIN LEVEL 7 - 10 Last Admin: 06/17/19 22:02 Dose: 5 mg Pantoprazole Sodium (Protonix -) 40 mg PO DAILY [facility] Last Admin: 06/18/19 09:35 Dose: 40 mg Polyethylene Glycol (Miralax (For Daily Use) -) 17 gm PO DAILY [facility] Last Admin: 06/18/19 09:36 Dose: Not Given Rivaroxaban (Xarelto) 20 mg PO DAILY@1800 [facility] Last Admin: 06/17/19 17:46 Dose: 20 mg Senna (Senna -) 1 tab PO BID [facility] Last Admin: 06/18/19 09:36 Dose: Not Given Valsartan (Diovan -) 40 mg PO DAILY [facility] Last Admin: 06/18/19 09:35 Dose: 40 mg - Objective Vital Signs: Vital Signs Temperature 98.1 F 06/18/19 09:32 Pulse Rate 73 06/18/19 09:32 Respiratory Rate 18 06/18/19 09:32 Blood Pressure 140/79 06/18/19 09:32 O2 Sat by Pulse Oximetry (%) 95 06/18/19 09:00 Constitutional: Yes: No Distress, Calm Cardiovascular: Yes: S1, S2 Gastrointestinal: Yes: Normal Bowel Sounds, Soft Musculoskeletal: Yes: WNL Extremities: Yes: Erythema (improving), Other Neurological: Yes: Alert, Oriented Psychiatric: Yes: Alert, Oriented Labs: CBC, BMP 06/16/19 06:20 06/16/19 06:20 INR, PTT INR 1.87 (0.83-1.09) H 06/16/19 06:20 Assessment/Plan Problem List - Problems (1) Cellulitis of right leg Problems reviewed: Yes Code(s): L03.115 - CELLULITIS OF RIGHT LOWER LIMB (2) HLD (hyperlipidemia) Code(s): E78.5 - HYPERLIPIDEMIA, UNSPECIFIED (3) HTN (hypertension) Problems reviewed: Yes Code(s): I10 - ESSENTIAL (PRIMARY) HYPERTENSION (4) Hematoma of right lower extremity Problems reviewed: Yes Code(s): S80.11XA - CONTUSION OF RIGHT LOWER LEG, INITIAL ENCOUNTER Qualifiers: Encounter type: initial encounter Qualified Code(s): S80.11XA - Contusion of right lower leg, initial encounter (5) CHF (congestive heart failure) Problems reviewed: Yes Code(s): I50.9 - HEART FAILURE, UNSPECIFIED (6) A-fib Code(s): I48.91 - UNSPECIFIED ATRIAL FIBRILLATION Qualifiers: Atrial fibrillation type: unspecified chronic Qualified Code(s): I48.20 - Chronic atrial fibrillation, unspecified; I48.2 - Chronic atrial fibrillation plan continue current mgmt elevation of the leg physio abx rest as per the team
[2019-06-18] MEDS: oxyCODONE HCL 5 MG TABLET PO PRN ×2 (15:16→21:11)
[2019-06-18] MEDS: RIVAROXABAN 20 MG TABLET PO SCH (17:50)
[2019-06-19] MEDS ORDERED: DEXTROSE 5%-WATER 100 ML IVPB ONE ×2 (01:56→09:03)
[2019-06-19] MEDS ORDERED: MEROPENEM 1 GM VIAL (RESTRICTED TO ID) IVPB ONE ×3 (01:56→09:02)
[2019-06-19] MEDS: MEROPENEM 1 GM in DEXTROSE 5%-WATER 100 ML IVPB SCH ×2 (02:32→09:15)
[2019-06-19] MEDS ORDERED: PT OWN MED DRAWER 7, Y5N ONE (09:12)
[2019-06-19] MEDS: FUROSEMIDE 40 MG TABLET (FP) PO SCH (09:14)
[2019-06-19] MEDS: PANTOPRAZOLE 40 MG TABLET (FP) PO SCH (09:14)
[2019-06-19] MEDS: SENNOSIDES 8.6MG TABLET (FP) PO SCH ×2 (09:14→23:04)
[2019-06-19] MEDS: VALSARTAN 40 MG TABLET (FP) PO SCH (09:14)
[2019-06-19] MEDS: AMOX TR/POT CLAV 500MG/125MG TABLETS (FP) PO SCH (09:14)
[2019-06-19] MEDS: NYSTATIN 100,000 UNIT/GM TOPICAL CREAM 15 GM TUBE TP SCH (09:16)
[2019-06-19] MEDS: POLYETHYLENE GLYCOL 3350 119 GM BTL PO SCH (09:19)
--- NOTE | 2019-06-19 10:18 | PN ---
Progress Note, Physician Chief Complaint: Events noted Not in distress History of Present Illness: Patient was seen and examined. Awake and alert. Chart was reviewed Denies chest pain or palpitations - Current Medication List Current Medications: Active Medications Acetaminophen (Tylenol -) 650 mg PO Q4H PRN PRN Reason: PAIN LEVEL 1-5 Last Admin: 06/16/19 21:54 Dose: 650 mg Amoxicillin/Clavulanate Potassium (Augmentin - 500mg Tablet) 1 tab PO BID@0800, 1730 [facility] Last Admin: 06/19/19 09:14 Dose: 1 tab Furosemide (Lasix -) 40 mg PO DAILY [facility] Last Admin: 06/19/19 09:14 Dose: 40 mg Guaifenesin (Robitussin -) 10 ml PO Q6H PRN PRN Reason: COUGH Last Admin: 06/12/19 16:24 Dose: 10 ml Meropenem 1 gm/ Dextrose 100 mls @ 200 mls/hr IVPB Q8H-IV [facility] Last Admin: 06/19/19 09:15 Dose: 200 mls/hr Metoprolol Succinate (Toprol Xl -) 50 mg PO BID [facility] Last Admin: 06/19/19 09:15 Dose: 50 mg Nystatin (Mycostatin Cream -) 1 applic TP BID [facility] Last Admin: 06/19/19 09:16 Dose: 1 applic Oxycodone HCl (Roxicodone -) 5 mg PO Q6H PRN PRN Reason: PAIN LEVEL 7 - 10 Last Admin: 06/18/19 21:11 Dose: 5 mg Pantoprazole Sodium (Protonix -) 40 mg PO DAILY [facility] Last Admin: 06/19/19 09:14 Dose: 40 mg Polyethylene Glycol (Miralax (For Daily Use) -) 17 gm PO DAILY [facility] Last Admin: 06/19/19 09:19 Dose: Not Given Rivaroxaban (Xarelto) 20 mg PO DAILY@1800 [facility] Last Admin: 06/18/19 17:50 Dose: 20 mg Senna (Senna -) 1 tab PO BID [facility] Last Admin: 06/19/19 09:14 Dose: Not Given Valsartan (Diovan -) 40 mg PO DAILY [facility] Last Admin: 06/19/19 09:14 Dose: 40 mg - Objective Vital Signs: Vital Signs Temperature 98.1 F 06/19/19 06:00 Pulse Rate 80 06/19/19 08:38 Respiratory Rate 18 06/19/19 08:38 Blood Pressure 118/77 06/19/19 08:38 O2 Sat by Pulse Oximetry (%) 95 06/18/19 21:00 Eyes: Yes: PERRL HENT: Yes: Atraumatic Neck: Yes: Supple Cardiovascular: Yes: Pulse Irregular, S1, S2 Respiratory: Yes: Diminished Gastrointestinal: Yes: Normal Bowel Sounds, Soft. No: Tenderness Edema: Yes Additional Findings/Remarks: - Review of Systems Constitutional: denies: Chills, Fever Cardiovascular: denies: Chest Pain, Palpitations, Shortness of Breath Respiratory: denies: Cough, Hemoptysis, Orthopnea, PND, SOB, SOB on Exertion Gastrointestinal: denies: Abdominal Pain, Constipation, Diarrhea, Melena, Nausea , Rectal Bleeding, Vomiting Genitourinary: denies: Dysuria, Hematuria Neurological: denies: Headache, Seizure, Syncope Problem List - Problems (1) A-fib Code(s): I48.91 - UNSPECIFIED ATRIAL FIBRILLATION Qualifiers: Atrial fibrillation type: unspecified chronic Qualified Code(s): I48.20 - Chronic atrial fibrillation, unspecified; I48.2 - Chronic atrial fibrillation (2) CHF (congestive heart failure) Code(s): I50.9 - HEART FAILURE, UNSPECIFIED (3) Cellulitis of right leg Code(s): L03.115 - CELLULITIS OF RIGHT LOWER LIMB (4) HLD (hyperlipidemia) Code(s): E78.5 - HYPERLIPIDEMIA, UNSPECIFIED (5) HTN (hypertension) Code(s): I10 - ESSENTIAL (PRIMARY) HYPERTENSION (6) Hematoma of right lower extremity Code(s): S80.11XA - CONTUSION OF RIGHT LOWER LEG, INITIAL ENCOUNTER Qualifiers: Encounter type: initial encounter Qualified Code(s): S80.11XA - Contusion of right lower leg, initial encounter Assessment/Plan 1. Persistent atrial fibrillation [id number] score of 5 on DOAC/Xarelto 2. CAD angina pectoris 3. Acute on chronic class I-II NYHA classification LV diastolic failure, clinically resolving 4. HTN 5. Hypercholesterolemia 6. Hematoma with cellulitis - right leg, clinically resolving PLAN: 1. Continue Toprol XL and Diovan as tolerated 2. Continue Xarelto 20 mg daily, with caution and close monitoring of CBC 3. Continue Lasix with close monitoring of renal function and electrolytes 4. Antibiotic 5. Wound care/management García Velásquez MD
--- NOTE | 2019-06-19 10:53 | PN ---
Progress Note (short form) - Note Progress Note: Decreased pain in right leg, decreased erythema feels well Vital Signs - 24 hr 06/18/19 06/18/19 06/18/19 14:15 18:00 21:00 Temperature 98.2 F 98.3 F Pulse Rate 88 99 H Respiratory 18 18 Rate Blood Pressure 124/58 L 113/73 O2 Sat by Pulse 95 Oximetry (%) 06/18/19 06/19/19 06/19/19 22:00 02:00 06:00 Temperature 98.5 F 97.7 F 98.1 F Pulse Rate 95 H 78 80 Respiratory 18 18 18 Rate Blood Pressure 114/62 117/77 124/75 O2 Sat by Pulse Oximetry (%) 06/19/19 08:38 Temperature Pulse Rate 80 Respiratory 18 Rate Blood Pressure 118/77 O2 Sat by Pulse Oximetry (%) Current Medications Generic Name Dose Route Start Last Admin Trade Name Freq PRN Reason Stop Dose Admin Acetaminophen 650 mg 06/10/19 02:56 06/16/19 21:54 Tylenol - PO 650 mg Q4H PRN Administration PAIN LEVEL 1-5 Amoxicillin/Clavulanate Potassium 1 tab 06/12/19 17:30 06/19/19 09:14 Augmentin - 500mg Tablet PO 1 tab BID@0800,1730 [facility] Administration Furosemide 40 mg 06/11/19 10:00 06/19/19 09:14 Lasix - PO 40 mg DAILY [facility] Administration Guaifenesin 10 ml 06/12/19 13:37 06/12/19 16:24 Robitussin - PO 10 ml Q6H PRN Administration COUGH Meropenem 1 gm/ Dextrose 100 mls @ 200 mls/hr 06/12/19 12:45 06/19/19 09:15 IVPB 200 mls/hr Q8H-IV [facility] Administration Metoprolol Succinate 50 mg 06/10/19 10:00 06/19/19 09:15 Toprol Xl - PO 50 mg BID [facility] Administration Nystatin 1 applic 06/12/19 13:45 06/19/19 09:16 Mycostatin Cream - TP 1 applic BID [facility] Administration Oxycodone HCl 5 mg 06/17/19 21:40 06/18/19 21:11 Roxicodone - PO 5 mg Q6H PRN Administration PAIN LEVEL 7 - 10 Pantoprazole Sodium 40 mg 06/12/19 13:45 06/19/19 09:14 Protonix - PO 40 mg DAILY [facility] Administration Polyethylene Glycol 17 gm 06/14/19 11:45 06/19/19 09:19 Miralax (For Daily Use) - PO Not Given DAILY [facility] Rivaroxaban 20 mg 06/16/19 18:00 06/18/19 17:50 Xarelto PO 20 mg DAILY@1800 [facility] Administration Senna 1 tab 06/10/19 10:00 06/19/19 09:14 Senna - PO Not Given BID [facility] Valsartan 40 mg 06/16/19 10:30 06/19/19 09:14 Diovan - PO 40 mg DAILY [facility] Administration Microbiology 06/09/19 23:10 Blood - Peripheral Venous Blood Culture - Final NO GROWTH AFTER 5 DAYS INCUBATION 06/09/19 23:10 Blood - Peripheral Venous Blood Culture - Final NO GROWTH AFTER 5 DAYS INCUBATION 06/09/19 23:10 Calf - Right Medial Gram Stain - Final 06/09/19 23:10 Calf - Right Medial Wound Culture - Final Escherichia Coli Esbl Behavior Analyst Enterococcus Faecalis Staphylococcus Coagulase Neg S1 S2 RRR Lungs clear Abd- soft, NT Edema right leg Hematoma+ decreased size , slight opening noted on hematoma rash underneath intra-abd folds Decreased erythema tender PLAN IV antibiotics pain control OOB continue Xarelto physical therapy antifungal cream to intra-abd folds warm compresses to hematoma ID for duration of antibiotics Problem List - Problems (1) A-fib Code(s): I48.91 - UNSPECIFIED ATRIAL FIBRILLATION Qualifiers: Atrial fibrillation type: unspecified chronic Qualified Code(s): I48.20 - Chronic atrial fibrillation, unspecified; I48.2 - Chronic atrial fibrillation (2) Anxiety Code(s): F41.9 - ANXIETY DISORDER, UNSPECIFIED (3) Cellulitis of right leg Code(s): L03.115 - CELLULITIS OF RIGHT LOWER LIMB (4) HLD (hyperlipidemia) Code(s): E78.5 - HYPERLIPIDEMIA, UNSPECIFIED (5) HTN (hypertension) Code(s): I10 - ESSENTIAL (PRIMARY) HYPERTENSION (6) Hematoma of right lower extremity Code(s): S80.11XA - CONTUSION OF RIGHT LOWER LEG, INITIAL ENCOUNTER Qualifiers: Encounter type: initial encounter Qualified Code(s): S80.11XA - Contusion of right lower leg, initial encounter
[2019-06-19] MEDS: LACTOBACILLUS ACIDOPHILUS 1 TABLET PO SCH (11:35)
--- NOTE | 2019-06-19 12:42 | PN ---
Progress Note, Physician History of Present Illness: stable no new issues - Current Medication List Current Medications: Active Medications Acetaminophen (Tylenol -) 650 mg PO Q4H PRN PRN Reason: PAIN LEVEL 1-5 Last Admin: 06/16/19 21:54 Dose: 650 mg Amoxicillin/Clavulanate Potassium (Augmentin - 500mg Tablet) 1 tab PO BID@0800, 1730 [facility] Last Admin: 06/19/19 09:14 Dose: 1 tab Furosemide (Lasix -) 40 mg PO DAILY [facility] Last Admin: 06/19/19 09:14 Dose: 40 mg Guaifenesin (Robitussin -) 10 ml PO Q6H PRN PRN Reason: COUGH Last Admin: 06/12/19 16:24 Dose: 10 ml Meropenem 1 gm/ Dextrose 100 mls @ 200 mls/hr IVPB Q8H-IV [facility] Last Admin: 06/19/19 09:15 Dose: 200 mls/hr Lactobacillus Acidophilus (Bacid -) 1 tab PO DAILY [facility] Last Admin: 06/19/19 11:35 Dose: 1 tab Metoprolol Succinate (Toprol Xl -) 50 mg PO BID [facility] Last Admin: 06/19/19 09:15 Dose: 50 mg Nystatin (Mycostatin Cream -) 1 applic TP BID [facility] Last Admin: 06/19/19 09:16 Dose: 1 applic Oxycodone HCl (Roxicodone -) 5 mg PO Q6H PRN PRN Reason: PAIN LEVEL 7 - 10 Last Admin: 06/18/19 21:11 Dose: 5 mg Pantoprazole Sodium (Protonix -) 40 mg PO DAILY [facility] Last Admin: 06/19/19 09:14 Dose: 40 mg Polyethylene Glycol (Miralax (For Daily Use) -) 17 gm PO DAILY [facility] Last Admin: 06/19/19 09:19 Dose: Not Given Rivaroxaban (Xarelto) 20 mg PO DAILY@1800 [facility] Last Admin: 06/18/19 17:50 Dose: 20 mg Senna (Senna -) 1 tab PO BID [facility] Last Admin: 06/19/19 09:14 Dose: Not Given Valsartan (Diovan -) 40 mg PO DAILY [facility] Last Admin: 06/19/19 09:14 Dose: 40 mg - Objective Vital Signs: Vital Signs Temperature 98.1 F 06/19/19 06:00 Pulse Rate 80 06/19/19 08:38 Respiratory Rate 18 06/19/19 08:38 Blood Pressure 118/77 06/19/19 08:38 O2 Sat by Pulse Oximetry (%) 95 06/18/19 21:00 Constitutional: Yes: No Distress, Calm, Obese Cardiovascular: Yes: S1, S2 Respiratory: Yes: Regular, CTA Bilaterally Gastrointestinal: Yes: Normal Bowel Sounds, Soft Musculoskeletal: Yes: WNL Extremities: Yes: Other Wound/Incision: Yes: Other Psychiatric: Yes: Alert, Oriented Labs: CBC, BMP 06/16/19 06:20 06/16/19 06:20 INR, PTT INR 1.87 (0.83-1.09) H 06/16/19 06:20 Assessment/Plan Problem List - Problems (1) Cellulitis of right leg Problems reviewed: Yes Code(s): L03.115 - CELLULITIS OF RIGHT LOWER LIMB (2) HLD (hyperlipidemia) Code(s): E78.5 - HYPERLIPIDEMIA, UNSPECIFIED (3) HTN (hypertension) Problems reviewed: Yes Code(s): I10 - ESSENTIAL (PRIMARY) HYPERTENSION (4) Hematoma of right lower extremity Problems reviewed: Yes Code(s): S80.11XA - CONTUSION OF RIGHT LOWER LEG, INITIAL ENCOUNTER Qualifiers: Encounter type: initial encounter Qualified Code(s): S80.11XA - Contusion of right lower leg, initial encounter (5) CHF (congestive heart failure) Problems reviewed: Yes Code(s): I50.9 - HEART FAILURE, UNSPECIFIED (6) A-fib Code(s): I48.91 - UNSPECIFIED ATRIAL FIBRILLATION Qualifiers: Atrial fibrillation type: unspecified chronic Qualified Code(s): I48.20 - Chronic atrial fibrillation, unspecified; I48.2 - Chronic atrial fibrillation plan continue current mgmt elevation of the leg physio abx rest as per the team
[2019-06-19] MEDS: RIVAROXABAN 20 MG TABLET PO SCH (17:35)
[2019-06-19] MEDS: oxyCODONE HCL 5 MG TABLET PO PRN (23:02)
[2019-06-20] MEDS: NYSTATIN 100,000 UNIT/GM TOPICAL CREAM 15 GM TUBE TP SCH ×4 (06:27→23:09)
[2019-06-20 06:49] LABS: HEMATOCRIT 37.4 % (32.4-45.2); HEMOGLOBIN 12.8 GM/dL (10.7-15.3); MCH 32.9 pg (25.7-33.7); MCHC 34.2 g/dl (32.0-36.0); MEAN CELL VOLUME 96.4 fl (80-96); MEAN PLT VOLUME 7.7 fl (7.5-11.1); PLATELET COUNT 286 K/MM3 (134-434); RBC 3.88 M/mm3 (3.60-5.2); RDW 12.2 % (11.6-15.6); WHITE BLOOD COUNT 8.7 K/mm3 (4.0-10.0)
[2019-06-20 07:20] LABS: BLOOD UREA NITROGEN 23.7 mg/dL (7-18); CALCIUM 8.7 mg/dL (8.5-10.1); CREATININE 0.8 mg/dL (0.55-1.3); POTASSIUM 4.6 mmol/L (3.5-5.1)
--- NOTE | 2019-06-20 09:34 | PN ---
Progress Note, Physician History of Present Illness: Right tender ashley hematoma tenderness and erythema improving, reports nonproductive cough with dyspnea and wheeze. - Current Medication List Current Medications: Active Medications Acetaminophen (Tylenol -) 650 mg PO Q4H PRN PRN Reason: PAIN LEVEL 1-5 Last Admin: 06/16/19 21:54 Dose: 650 mg Furosemide (Lasix -) 40 mg PO DAILY [facility] Last Admin: 06/19/19 09:14 Dose: 40 mg Guaifenesin (Robitussin -) 10 ml PO Q6H PRN PRN Reason: COUGH Last Admin: 06/12/19 16:24 Dose: 10 ml Lactobacillus Acidophilus (Bacid -) 1 tab PO DAILY [facility] Last Admin: 06/19/19 11:35 Dose: 1 tab Metoprolol Succinate (Toprol Xl -) 50 mg PO BID [facility] Last Admin: 06/19/19 23:02 Dose: 50 mg Nystatin (Mycostatin Cream -) 1 applic TP BID [facility] Last Admin: 06/20/19 06:27 Dose: 1 applic Oxycodone HCl (Roxicodone -) 5 mg PO Q6H PRN PRN Reason: PAIN LEVEL 7 - 10 Last Admin: 06/19/19 23:02 Dose: 5 mg Pantoprazole Sodium (Protonix -) 40 mg PO DAILY [facility] Last Admin: 06/19/19 09:14 Dose: 40 mg Polyethylene Glycol (Miralax (For Daily Use) -) 17 gm PO DAILY [facility] Last Admin: 06/19/19 09:19 Dose: Not Given Rivaroxaban (Xarelto) 20 mg PO DAILY@1800 [facility] Last Admin: 06/19/19 17:35 Dose: 20 mg Senna (Senna -) 1 tab PO BID [facility] Last Admin: 06/19/19 23:04 Dose: 1 tab Valsartan (Diovan -) 40 mg PO DAILY [facility] Last Admin: 06/19/19 09:14 Dose: 40 mg - Objective Vital Signs: Vital Signs Temperature 98.3 F 06/20/19 06:00 Pulse Rate 73 06/20/19 06:00 Respiratory Rate 18 06/20/19 06:00 Blood Pressure 129/69 06/20/19 06:00 O2 Sat by Pulse Oximetry (%) 95 06/19/19 21:00 Constitutional: Yes: No Distress, Calm Neck: Yes: Supple Cardiovascular: Yes: Pulse Irregular Respiratory: Yes: Regular, Diminished, On Nasal O2 Gastrointestinal: Yes: Soft, Abdomen, Obese, Hypoactive Bowel Sounds Extremities: Yes: Other (RLE hematoma) Edema: No Labs: CBC, BMP 06/20/19 05:30 06/20/19 05:30 INR, PTT INR 1.87 (0.83-1.09) H 06/16/19 06:20 Assessment/Plan 06/11/2019 TDS, normal LV size and fxn, LAE, mild MR, TR, AR Problem List - Problems (1) A-fib Code(s): I48.91 - UNSPECIFIED ATRIAL FIBRILLATION Qualifiers: Atrial fibrillation type: unspecified chronic Qualified Code(s): I48.20 - Chronic atrial fibrillation, unspecified; I48.2 - Chronic atrial fibrillation (2) CHF (congestive heart failure) Code(s): I50.9 - HEART FAILURE, UNSPECIFIED (3) Cellulitis of right leg Code(s): L03.115 - CELLULITIS OF RIGHT LOWER LIMB (4) HLD (hyperlipidemia) Code(s): E78.5 - HYPERLIPIDEMIA, UNSPECIFIED (5) HTN (hypertension) Code(s): I10 - ESSENTIAL (PRIMARY) HYPERTENSION (6) Hematoma of right lower extremity Code(s): S80.11XA - CONTUSION OF RIGHT LOWER LEG, INITIAL ENCOUNTER Qualifiers: Encounter type: initial encounter Qualified Code(s): S80.11XA - Contusion of right lower leg, initial encounter Assessment/Plan 1. Persistent atrial fibrillation [id number] score of 5 on DOAC/Xarelto 2. CAD angina pectoris 3. Acute on chronic class I-II NYHA classification LV diastolic failure, clinically resolving 4. HTN 5. Hypercholesterolemia 6. Hematoma with cellulitis - right leg, clinically resolving PLAN: 1. Continue Toprol XL 50 bid and Diovan 40 qd as tolerated 2. Continue Xarelto 20 mg daily with caution and close monitoring of CBC 3. Continue Lasix 40 qd with close monitoring of renal function and electrolytes 4. Completed antibiotic course and wound care management 5. BD and O2 as needed
[2019-06-20] MEDS: PANTOPRAZOLE 40 MG TABLET (FP) PO SCH (09:37)
[2019-06-20] MEDS: VALSARTAN 40 MG TABLET (FP) PO SCH (09:37)
[2019-06-20] MEDS: LACTOBACILLUS ACIDOPHILUS 1 TABLET PO SCH (09:37)
[2019-06-20] MEDS: FUROSEMIDE 40 MG TABLET (FP) PO SCH (09:37)
[2019-06-20] MEDS: POLYETHYLENE GLYCOL 3350 119 GM BTL PO SCH (09:42)
[2019-06-20] MEDS: SENNOSIDES 8.6MG TABLET (FP) PO SCH ×2 (09:42→22:25)
[2019-06-20] MEDS ORDERED: ALBUTEROL SO4 2.5/IPRATROPIUM 0.5 INH SOL 3 ML VIAL.NEB. NEB PRN (11:42)
--- NOTE | 2019-06-20 11:42 | PN ---
Progress Note (short form) - Note Progress Note: Decreased pain in right leg, decreased erythema has pain in right shoulder eccymosis on buttocks-- states that she sleeps in recliner at home She is walking steady with rolling walker coughing occasionally Vital Signs - 24 hr 06/19/19 06/19/19 06/19/19 14:00 18:00 21:00 Temperature 98.4 F 98.6 F Pulse Rate 74 84 Respiratory 17 18 18 Rate Blood Pressure 106/68 137/65 O2 Sat by Pulse 95 Oximetry (%) 06/19/19 06/20/19 06/20/19 22:00 06:00 09:35 Temperature 98.3 F 98.3 F 98.1 F Pulse Rate 85 73 81 Respiratory 18 18 Rate Blood Pressure 132/68 129/69 108/54 L O2 Sat by Pulse Oximetry (%) Current Medications Generic Name Dose Route Start Last Admin Trade Name Freq PRN Reason Stop Dose Admin Acetaminophen 650 mg 06/10/19 02:56 06/16/19 21:54 Tylenol - PO 650 mg Q4H PRN Administration PAIN LEVEL 1-5 Furosemide 40 mg 06/11/19 10:00 06/20/19 09:37 Lasix - PO 40 mg DAILY [facility] Administration Guaifenesin 10 ml 06/12/19 13:37 06/12/19 16:24 Robitussin - PO 10 ml Q6H PRN Administration COUGH Lactobacillus Acidophilus 1 tab 06/19/19 11:00 06/20/19 09:37 Bacid - PO 1 tab DAILY [facility] Administration Metoprolol Succinate 50 mg 06/10/19 10:00 06/20/19 09:37 Toprol Xl - PO 50 mg BID [facility] Administration Nystatin 1 applic 06/12/19 13:45 06/20/19 09:38 Mycostatin Cream - TP 1 applic BID [facility] Administration Oxycodone HCl 5 mg 06/17/19 21:40 06/19/19 23:02 Roxicodone - PO 5 mg Q6H PRN Administration PAIN LEVEL 7 - 10 Pantoprazole Sodium 40 mg 06/12/19 13:45 06/20/19 09:37 Protonix - PO 40 mg DAILY [facility] Administration Polyethylene Glycol 17 gm 06/14/19 11:45 06/20/19 09:42 Miralax (For Daily Use) - PO Not Given DAILY [facility] Rivaroxaban 20 mg 06/16/19 18:00 06/19/19 17:35 Xarelto PO 20 mg DAILY@1800 [facility] Administration Senna 1 tab 06/10/19 10:00 06/20/19 09:42 Senna - PO Not Given BID [facility] Valsartan 40 mg 06/16/19 10:30 06/20/19 09:37 Diovan - PO 40 mg DAILY [facility] Administration Laboratory Results - last 24 hr 06/20/19 06/20/19 05:30 05:30 WBC 8.7 RBC 3.88 Hgb 12.8 Hct 37.4 MCV 96.4 H MCH 32.9 MCHC 34.2 RDW 12.2 Plt Count 286 MPV 7.7 Sodium 138 Potassium 4.6 Chloride 101 Carbon Dioxide 33 H Anion Gap 5 L BUN 23.7 H Creatinine 0.8 Est GFR (CKD-EPI)AfAm 79.02 Est GFR (CKD-EPI)NonAf 68.18 Random Glucose 85 Calcium 8.7 Microbiology 06/09/19 23:10 Blood - Peripheral Venous Blood Culture - Final NO GROWTH AFTER 5 DAYS INCUBATION 06/09/19 23:10 Blood - Peripheral Venous Blood Culture - Final NO GROWTH AFTER 5 DAYS INCUBATION 06/09/19 23:10 Calf - Right Medial Gram Stain - Final 06/09/19 23:10 Calf - Right Medial Wound Culture - Final Escherichia Coli Esbl [employer] Enterococcus Faecalis Staphylococcus Coagulase Neg S1 S2 RRR Lungs scattered ronchi Abd- soft, NT Edema right leg Hematoma+ decreased size , slight opening noted on hematoma rash underneath intra-abd folds Decreased erythema tender PLAN IV antibiotics check xray of right shoulder nebs as needed for cough pain control OOB continue Xarelto physical therapy antifungal cream to intra-abd folds warm compresses to hematoma ID for duration of antibiotics Problem List - Problems (1) A-fib Code(s): I48.91 - UNSPECIFIED ATRIAL FIBRILLATION Qualifiers: Atrial fibrillation type: unspecified chronic Qualified Code(s): I48.20 - Chronic atrial fibrillation, unspecified; I48.2 - Chronic atrial fibrillation (2) Anxiety Code(s): F41.9 - ANXIETY DISORDER, UNSPECIFIED (3) Cellulitis of right leg Code(s): L03.115 - CELLULITIS OF RIGHT LOWER LIMB (4) HLD (hyperlipidemia) Code(s): E78.5 - HYPERLIPIDEMIA, UNSPECIFIED (5) HTN (hypertension) Code(s): I10 - ESSENTIAL (PRIMARY) HYPERTENSION (6) Hematoma of right lower extremity Code(s): S80.11XA - CONTUSION OF RIGHT LOWER LEG, INITIAL ENCOUNTER Qualifiers: Encounter type: initial encounter Qualified Code(s): S80.11XA - Contusion of right lower leg, initial encounter
--- NOTE | 2019-06-20 12:41 | PN ---
Progress Note, Physician History of Present Illness: stable no new issues - Current Medication List Current Medications: Active Medications Acetaminophen (Tylenol -) 650 mg PO Q4H PRN PRN Reason: PAIN LEVEL 1-5 Last Admin: 06/16/19 21:54 Dose: 650 mg Albuterol/Ipratropium (Duoneb -) 1 amp NEB Q6H PRN PRN Reason: SHORTNESS OF BREATH Furosemide (Lasix -) 40 mg PO DAILY [facility] Last Admin: 06/20/19 09:37 Dose: 40 mg Guaifenesin (Robitussin -) 10 ml PO Q6H PRN PRN Reason: COUGH Last Admin: 06/12/19 16:24 Dose: 10 ml Lactobacillus Acidophilus (Bacid -) 1 tab PO DAILY [facility] Last Admin: 06/20/19 09:37 Dose: 1 tab Metoprolol Succinate (Toprol Xl -) 50 mg PO BID [facility] Last Admin: 06/20/19 09:37 Dose: 50 mg Nystatin (Mycostatin Cream -) 1 applic TP BID [facility] Last Admin: 06/20/19 09:38 Dose: 1 applic Oxycodone HCl (Roxicodone -) 5 mg PO Q6H PRN PRN Reason: PAIN LEVEL 7 - 10 Last Admin: 06/19/19 23:02 Dose: 5 mg Pantoprazole Sodium (Protonix -) 40 mg PO DAILY [facility] Last Admin: 06/20/19 09:37 Dose: 40 mg Polyethylene Glycol (Miralax (For Daily Use) -) 17 gm PO DAILY [facility] Last Admin: 06/20/19 09:42 Dose: Not Given Rivaroxaban (Xarelto) 20 mg PO DAILY@1800 [facility] Last Admin: 06/19/19 17:35 Dose: 20 mg Senna (Senna -) 1 tab PO BID [facility] Last Admin: 06/20/19 09:42 Dose: Not Given Valsartan (Diovan -) 40 mg PO DAILY [facility] Last Admin: 06/20/19 09:37 Dose: 40 mg - Objective Vital Signs: Vital Signs Temperature 98.1 F 06/20/19 09:35 Pulse Rate 81 06/20/19 09:35 Respiratory Rate 18 06/20/19 09:35 Blood Pressure 108/54 L 06/20/19 09:35 O2 Sat by Pulse Oximetry (%) 95 06/19/19 21:00 Constitutional: Yes: No Distress, Calm Cardiovascular: Yes: S1, S2 Respiratory: Yes: Regular, CTA Bilaterally Gastrointestinal: Yes: Normal Bowel Sounds, Soft Musculoskeletal: Yes: WNL Extremities: Yes: Other Wound/Incision: Yes: Open to air Neurological: Yes: Alert, Oriented Psychiatric: Yes: Alert, Oriented Labs: CBC, BMP 06/20/19 05:30 06/20/19 05:30 INR, PTT INR 1.87 (0.83-1.09) H 06/16/19 06:20 Assessment/Plan Problem List - Problems (1) Cellulitis of right leg Problems reviewed: Yes Code(s): L03.115 - CELLULITIS OF RIGHT LOWER LIMB (2) HLD (hyperlipidemia) Code(s): E78.5 - HYPERLIPIDEMIA, UNSPECIFIED (3) HTN (hypertension) Problems reviewed: Yes Code(s): I10 - ESSENTIAL (PRIMARY) HYPERTENSION (4) Hematoma of right lower extremity Problems reviewed: Yes Code(s): S80.11XA - CONTUSION OF RIGHT LOWER LEG, INITIAL ENCOUNTER Qualifiers: Encounter type: initial encounter Qualified Code(s): S80.11XA - Contusion of right lower leg, initial encounter (5) CHF (congestive heart failure) Problems reviewed: Yes Code(s): I50.9 - HEART FAILURE, UNSPECIFIED (6) A-fib Code(s): I48.91 - UNSPECIFIED ATRIAL FIBRILLATION Qualifiers: Atrial fibrillation type: unspecified chronic Qualified Code(s): I48.20 - Chronic atrial fibrillation, unspecified; I48.2 - Chronic atrial fibrillation plan continue current mgmt elevation of the leg physio abx rest as per the team
[2019-06-20] MEDS ORDERED: MEROPENEM 1 GM VIAL (RESTRICTED TO ID) IVPB ONE ×2 (13:43→17:14)
[2019-06-20] MEDS ORDERED: DEXTROSE 5%-WATER 100 ML IVPB ONE ×2 (13:43→17:15)
[2019-06-20] MEDS: MEROPENEM 1 GM in DEXTROSE 5%-WATER 100 ML IVPB SCH ×2 (14:59→17:30)
[2019-06-20] MEDS: RIVAROXABAN 20 MG TABLET PO SCH (17:29)
[2019-06-20] MEDS: CLOTRIMAZOLE 1% CREAM 15 GM TUBE TP SCH (23:09)
[2019-06-21] MEDS ORDERED: MEROPENEM 1 GM VIAL (RESTRICTED TO ID) IVPB ONE ×3 (01:46→17:13)
[2019-06-21] MEDS ORDERED: DEXTROSE 5%-WATER 100 ML IVPB ONE ×2 (01:46→09:56)
[2019-06-21] MEDS: MEROPENEM 1 GM in DEXTROSE 5%-WATER 100 ML IVPB SCH ×3 (01:56→18:16)
[2019-06-21] MEDS: VALSARTAN 40 MG TABLET (FP) PO SCH (10:09)
[2019-06-21] MEDS: CLOTRIMAZOLE 1% CREAM 15 GM TUBE TP SCH ×2 (10:10→21:48)
[2019-06-21] MEDS: LACTOBACILLUS ACIDOPHILUS 1 TABLET PO SCH (10:10)
[2019-06-21] MEDS: FUROSEMIDE 40 MG TABLET (FP) PO SCH (10:10)
[2019-06-21] MEDS: POLYETHYLENE GLYCOL 3350 119 GM BTL PO SCH (10:10)
[2019-06-21] MEDS: PANTOPRAZOLE 40 MG TABLET (FP) PO SCH (10:10)
[2019-06-21] MEDS: SENNOSIDES 8.6MG TABLET (FP) PO SCH ×2 (10:11→21:48)
--- NOTE | 2019-06-21 10:16 | PN ---
Progress Note (short form) - Note Progress Note: Decreased pain in right leg, decreased erythema has pain in right shoulder eccymosis on buttocks-- states that she sleeps in recliner at home She is walking steady with rolling walker Vital Signs - 24 hr 06/20/19 06/20/19 06/21/19 21:00 22:00 06:00 Temperature 98.2 F 98.4 F Pulse Rate 84 75 Respiratory 18 16 Rate Blood Pressure 109/71 110/37 L O2 Sat by Pulse 96 Oximetry (%) 06/21/19 06/21/19 06/21/19 09:00 10:07 14:00 Temperature 98.5 F 98.4 F Pulse Rate 92 H 86 Respiratory 18 20 Rate Blood Pressure 126/57 L 131/71 O2 Sat by Pulse 95 Oximetry (%) Current Medications Generic Name Dose Route Start Last Admin Trade Name Freq PRN Reason Stop Dose Admin Acetaminophen 650 mg 06/10/19 02:56 06/16/19 21:54 Tylenol - PO 650 mg Q4H PRN Administration PAIN LEVEL 1-5 Albuterol/Ipratropium 1 amp 06/20/19 11:42 Duoneb - NEB Q6H PRN SHORTNESS OF BREATH Clotrimazole 1 applic 06/20/19 22:45 06/21/19 10:10 Lotrimin 1% Cream - TP Not Given BID [facility] Furosemide 40 mg 06/11/19 10:00 06/21/19 10:10 Lasix - PO 40 mg DAILY [facility] Administration Guaifenesin 10 ml 06/12/19 13:37 06/12/19 16:24 Robitussin - PO 10 ml Q6H PRN Administration COUGH Meropenem 1 gm/ Dextrose 100 mls @ 200 mls/hr 06/20/19 12:45 06/21/19 10:09 IVPB 200 mls/hr Q8H-IV [facility] Administration Lactobacillus Acidophilus 1 tab 06/19/19 11:00 06/21/19 10:10 Bacid - PO 1 tab DAILY [facility] Administration Metoprolol Succinate 50 mg 06/10/19 10:00 06/21/19 10:10 Toprol Xl - PO 50 mg BID [facility] Administration Oxycodone HCl 5 mg 06/17/19 21:40 06/19/19 23:02 Roxicodone - PO 5 mg Q6H PRN Administration PAIN LEVEL 7 - 10 Pantoprazole Sodium 40 mg 06/12/19 13:45 06/21/19 10:10 Protonix - PO 40 mg DAILY [facility] Administration Polyethylene Glycol 17 gm 06/14/19 11:45 06/21/19 10:10 Miralax (For Daily Use) - PO Not Given DAILY [facility] Rivaroxaban 20 mg 06/16/19 18:00 06/20/19 17:29 Xarelto PO 20 mg DAILY@1800 [facility] Administration Senna 1 tab 06/10/19 10:00 06/21/19 10:11 Senna - PO Not Given BID [facility] Valsartan 40 mg 06/16/19 10:30 06/21/19 10:09 Diovan - PO 40 mg DAILY [facility] Administration Microbiology 06/09/19 23:10 Blood - Peripheral Venous Blood Culture - Final NO GROWTH AFTER 5 DAYS INCUBATION 06/09/19 23:10 Blood - Peripheral Venous Blood Culture - Final NO GROWTH AFTER 5 DAYS INCUBATION 06/09/19 23:10 Calf - Right Medial Gram Stain - Final 06/09/19 23:10 Calf - Right Medial Wound Culture - Final Escherichia Coli Esbl [employer] Enterococcus Faecalis Staphylococcus Coagulase Neg S1 S2 RRR Lungs no ronchi Abd- soft, NT Edema right leg Hematoma+ decreased size , slight opening noted on hematoma rash underneath intra-abd folds Decreased erythema tender PLAN IV antibiotics xray of right shoulder-->OA nebs as needed for cough-->better pain control OOB continue Xarelto physical therapy antifungal cream to intra-abd folds warm compresses to hematoma ID for duration of antibiotics Problem List - Problems (1) A-fib Code(s): I48.91 - UNSPECIFIED ATRIAL FIBRILLATION Qualifiers: Atrial fibrillation type: unspecified chronic Qualified Code(s): I48.20 - Chronic atrial fibrillation, unspecified; I48.2 - Chronic atrial fibrillation (2) Anxiety Code(s): F41.9 - ANXIETY DISORDER, UNSPECIFIED (3) Cellulitis of right leg Code(s): L03.115 - CELLULITIS OF RIGHT LOWER LIMB (4) HLD (hyperlipidemia) Code(s): E78.5 - HYPERLIPIDEMIA, UNSPECIFIED (5) HTN (hypertension) Code(s): I10 - ESSENTIAL (PRIMARY) HYPERTENSION (6) Hematoma of right lower extremity Code(s): S80.11XA - CONTUSION OF RIGHT LOWER LEG, INITIAL ENCOUNTER Qualifiers: Encounter type: initial encounter Qualified Code(s): S80.11XA - Contusion of right lower leg, initial encounter
--- NOTE | 2019-06-21 10:47 | PN ---
Progress Note, Physician History of Present Illness: Right tender ashley hematoma tenderness and erythema improving, reports improvement in nonproductive cough with dyspnea and wheeze. - Current Medication List Current Medications: Active Medications Acetaminophen (Tylenol -) 650 mg PO Q4H PRN PRN Reason: PAIN LEVEL 1-5 Last Admin: 06/16/19 21:54 Dose: 650 mg Albuterol/Ipratropium (Duoneb -) 1 amp NEB Q6H PRN PRN Reason: SHORTNESS OF BREATH Clotrimazole (Lotrimin 1% Cream -) 1 applic TP BID [facility] Last Admin: 06/21/19 10:10 Dose: Not Given Furosemide (Lasix -) 40 mg PO DAILY [facility] Last Admin: 06/21/19 10:10 Dose: 40 mg Guaifenesin (Robitussin -) 10 ml PO Q6H PRN PRN Reason: COUGH Last Admin: 06/12/19 16:24 Dose: 10 ml Meropenem 1 gm/ Dextrose 100 mls @ 200 mls/hr IVPB Q8H-IV [facility] Last Admin: 06/21/19 10:09 Dose: 200 mls/hr Lactobacillus Acidophilus (Bacid -) 1 tab PO DAILY [facility] Last Admin: 06/21/19 10:10 Dose: 1 tab Metoprolol Succinate (Toprol Xl -) 50 mg PO BID [facility] Last Admin: 06/21/19 10:10 Dose: 50 mg Oxycodone HCl (Roxicodone -) 5 mg PO Q6H PRN PRN Reason: PAIN LEVEL 7 - 10 Last Admin: 06/19/19 23:02 Dose: 5 mg Pantoprazole Sodium (Protonix -) 40 mg PO DAILY [facility] Last Admin: 06/21/19 10:10 Dose: 40 mg Polyethylene Glycol (Miralax (For Daily Use) -) 17 gm PO DAILY [facility] Last Admin: 06/21/19 10:10 Dose: Not Given Rivaroxaban (Xarelto) 20 mg PO DAILY@1800 [facility] Last Admin: 06/20/19 17:29 Dose: 20 mg Senna (Senna -) 1 tab PO BID [facility] Last Admin: 06/21/19 10:11 Dose: Not Given Valsartan (Diovan -) 40 mg PO DAILY [facility] Last Admin: 06/21/19 10:09 Dose: 40 mg - Objective Vital Signs: Vital Signs Temperature 98.5 F 06/21/19 10:07 Pulse Rate 92 H 06/21/19 10:07 Respiratory Rate 18 06/21/19 10:07 Blood Pressure 126/57 L 06/21/19 10:07 O2 Sat by Pulse Oximetry (%) 96 06/20/19 21:00 Constitutional: Yes: No Distress, Calm Neck: Yes: Supple Cardiovascular: Yes: Pulse Irregular Respiratory: Yes: Regular, Diminished Gastrointestinal: Yes: Normal Bowel Sounds, Soft Extremities: Yes: Erythema, Other (Right ashley hematoma resolved) Edema: No Labs: CBC, BMP 06/20/19 05:30 06/20/19 05:30 INR, PTT INR 1.87 (0.83-1.09) H 06/16/19 06:20 Assessment/Plan 06/11/2019 TDS, normal LV size and fxn, LAE, mild MR, TR, AR Problem List - Problems (1) A-fib Code(s): I48.91 - UNSPECIFIED ATRIAL FIBRILLATION Qualifiers: Atrial fibrillation type: unspecified chronic Qualified Code(s): I48.20 - Chronic atrial fibrillation, unspecified; I48.2 - Chronic atrial fibrillation (2) CHF (congestive heart failure) Code(s): I50.9 - HEART FAILURE, UNSPECIFIED (3) Cellulitis of right leg Code(s): L03.115 - CELLULITIS OF RIGHT LOWER LIMB (4) HLD (hyperlipidemia) Code(s): E78.5 - HYPERLIPIDEMIA, UNSPECIFIED (5) HTN (hypertension) Code(s): I10 - ESSENTIAL (PRIMARY) HYPERTENSION (6) Hematoma of right lower extremity Code(s): S80.11XA - CONTUSION OF RIGHT LOWER LEG, INITIAL ENCOUNTER Qualifiers: Encounter type: initial encounter Qualified Code(s): S80.11XA - Contusion of right lower leg, initial encounter Assessment/Plan 1. Persistent atrial fibrillation [id number] score of 5 on DOAC/Xarelto 2. CAD angina pectoris 3. Acute on chronic class I-II NYHA classification LV diastolic failure, clinically resolving 4. HTN 5. Hypercholesterolemia 6. Hematoma with cellulitis - right leg, clinically resolving PLAN: 1. Continue Toprol XL 50 bid and Diovan 40 qd as tolerated 2. Continue Xarelto 20 mg daily with caution and close monitoring of CBC 3. Continue Lasix 40 qd with close monitoring of renal function and electrolytes 4. Completed antibiotic course and wound care management 5. BD and O2 as needed
[2019-06-21] MEDS: oxyCODONE HCL 5 MG TABLET PO PRN (18:16)
[2019-06-21] MEDS: RIVAROXABAN 20 MG TABLET PO SCH (18:16)
[2019-06-22] MEDS ORDERED: MEROPENEM 1 GM VIAL (RESTRICTED TO ID) IVPB ONE ×3 (01:19→17:04)
[2019-06-22] MEDS ORDERED: DEXTROSE 5%-WATER 100 ML IVPB ONE ×3 (01:19→17:05)
[2019-06-22] MEDS: MEROPENEM 1 GM in DEXTROSE 5%-WATER 100 ML IVPB SCH ×3 (01:42→17:41)
[2019-06-22] MEDS: VALSARTAN 40 MG TABLET (FP) PO SCH (10:28)
[2019-06-22] MEDS: CLOTRIMAZOLE 1% CREAM 15 GM TUBE TP SCH ×2 (10:29→21:32)
[2019-06-22] MEDS: FUROSEMIDE 40 MG TABLET (FP) PO SCH (10:29)
[2019-06-22] MEDS: PANTOPRAZOLE 40 MG TABLET (FP) PO SCH (10:29)
[2019-06-22] MEDS: LACTOBACILLUS ACIDOPHILUS 1 TABLET PO SCH (10:29)
[2019-06-22] MEDS: POLYETHYLENE GLYCOL 3350 119 GM BTL PO SCH (10:30)
[2019-06-22] MEDS: SENNOSIDES 8.6MG TABLET (FP) PO SCH ×2 (10:30→21:33)
--- NOTE | 2019-06-22 11:14 | PN ---
Progress Note (short form) - Note Progress Note: Decreased pain in right leg, decreased erythema feels lightheaded when she gets OOB Vital Signs - 24 hr 06/21/19 06/21/19 06/21/19 14:00 18:00 20:53 Temperature 98.4 F 98.0 F Pulse Rate 86 80 Respiratory 20 20 Rate Blood Pressure 131/71 134/80 O2 Sat by Pulse 94 L Oximetry (%) 06/21/19 06/22/19 22:00 06:00 Temperature 98.2 F 97.7 F Pulse Rate 78 73 Respiratory 16 16 Rate Blood Pressure 131/88 122/70 O2 Sat by Pulse Oximetry (%) Current Medications Generic Name Dose Route Start Last Admin Trade Name Freq PRN Reason Stop Dose Admin Acetaminophen 650 mg 06/10/19 02:56 06/16/19 21:54 Tylenol - PO 650 mg Q4H PRN Administration PAIN LEVEL 1-5 Albuterol/Ipratropium 1 amp 06/20/19 11:42 Duoneb - NEB Q6H PRN SHORTNESS OF BREATH Clotrimazole 1 applic 06/20/19 22:45 06/22/19 10:29 Lotrimin 1% Cream - TP Not Given BID [facility] Furosemide 40 mg 06/11/19 10:00 06/22/19 10:29 Lasix - PO 40 mg DAILY [facility] Administration Guaifenesin 10 ml 06/12/19 13:37 06/12/19 16:24 Robitussin - PO 10 ml Q6H PRN Administration COUGH Meropenem 1 gm/ Dextrose 100 mls @ 200 mls/hr 06/20/19 12:45 06/22/19 10:29 IVPB 200 mls/hr Q8H-IV [facility] Administration Lactobacillus Acidophilus 1 tab 06/19/19 11:00 06/22/19 10:29 Bacid - PO 1 tab DAILY [facility] Administration Metoprolol Succinate 50 mg 06/10/19 10:00 06/22/19 10:29 Toprol Xl - PO 50 mg BID [facility] Administration Oxycodone HCl 5 mg 06/17/19 21:40 06/21/19 18:16 Roxicodone - PO 5 mg Q6H PRN Administration PAIN LEVEL 7 - 10 Pantoprazole Sodium 40 mg 06/12/19 13:45 06/22/19 10:29 Protonix - PO 40 mg DAILY [facility] Administration Polyethylene Glycol 17 gm 06/14/19 11:45 06/22/19 10:30 Miralax (For Daily Use) - PO Not Given DAILY [facility] Rivaroxaban 20 mg 06/16/19 18:00 06/21/19 18:16 Xarelto PO 20 mg DAILY@1800 [facility] Administration Senna 1 tab 06/10/19 10:00 06/22/19 10:30 Senna - PO Not Given BID [facility] Valsartan 40 mg 06/16/19 10:30 06/22/19 10:28 Diovan - PO 40 mg DAILY [facility] Administration Microbiology 06/09/19 23:10 Blood - Peripheral Venous Blood Culture - Final NO GROWTH AFTER 5 DAYS INCUBATION 06/09/19 23:10 Blood - Peripheral Venous Blood Culture - Final NO GROWTH AFTER 5 DAYS INCUBATION 06/09/19 23:10 Calf - Right Medial Gram Stain - Final 06/09/19 23:10 Calf - Right Medial Wound Culture - Final Escherichia Coli Esbl Triage Rn Enterococcus Faecalis Staphylococcus Coagulase Neg S1 S2 RRR Lungs no ronchi Abd- soft, NT Edema right leg Hematoma+ decreased size , slight opening noted on hematoma rash underneath intra-abd folds Decreased erythema tender PLAN IV antibiotics xray of right shoulder-->OA nebs as needed for cough-->better pain control OOB continue Xarelto physical therapy antifungal cream to intra-abd folds warm compresses to hematoma ID for duration of antibiotics-- possible dc next week Problem List - Problems (1) A-fib Code(s): I48.91 - UNSPECIFIED ATRIAL FIBRILLATION Qualifiers: Atrial fibrillation type: unspecified chronic Qualified Code(s): I48.20 - Chronic atrial fibrillation, unspecified; I48.2 - Chronic atrial fibrillation (2) Anxiety Code(s): F41.9 - ANXIETY DISORDER, UNSPECIFIED (3) Cellulitis of right leg Code(s): L03.115 - CELLULITIS OF RIGHT LOWER LIMB (4) HLD (hyperlipidemia) Code(s): E78.5 - HYPERLIPIDEMIA, UNSPECIFIED (5) HTN (hypertension) Code(s): I10 - ESSENTIAL (PRIMARY) HYPERTENSION (6) Hematoma of right lower extremity Code(s): S80.11XA - CONTUSION OF RIGHT LOWER LEG, INITIAL ENCOUNTER Qualifiers: Encounter type: initial encounter Qualified Code(s): S80.11XA - Contusion of right lower leg, initial encounter
--- NOTE | 2019-06-22 11:33 | PN ---
Progress Note, Physician History of Present Illness: Right tender ashley hematoma tenderness and erythema improving, reports improvement in nonproductive cough with dyspnea and wheeze. - Current Medication List Current Medications: Active Medications Acetaminophen (Tylenol -) 650 mg PO Q4H PRN PRN Reason: PAIN LEVEL 1-5 Last Admin: 06/16/19 21:54 Dose: 650 mg Albuterol/Ipratropium (Duoneb -) 1 amp NEB Q6H PRN PRN Reason: SHORTNESS OF BREATH Clotrimazole (Lotrimin 1% Cream -) 1 applic TP BID [facility] Last Admin: 06/22/19 10:29 Dose: Not Given Furosemide (Lasix -) 40 mg PO DAILY [facility] Last Admin: 06/22/19 10:29 Dose: 40 mg Guaifenesin (Robitussin -) 10 ml PO Q6H PRN PRN Reason: COUGH Last Admin: 06/12/19 16:24 Dose: 10 ml Meropenem 1 gm/ Dextrose 100 mls @ 200 mls/hr IVPB Q8H-IV [facility] Last Admin: 06/22/19 10:29 Dose: 200 mls/hr Lactobacillus Acidophilus (Bacid -) 1 tab PO DAILY [facility] Last Admin: 06/22/19 10:29 Dose: 1 tab Metoprolol Succinate (Toprol Xl -) 50 mg PO BID [facility] Last Admin: 06/22/19 10:29 Dose: 50 mg Oxycodone HCl (Roxicodone -) 5 mg PO Q6H PRN PRN Reason: PAIN LEVEL 7 - 10 Last Admin: 06/21/19 18:16 Dose: 5 mg Pantoprazole Sodium (Protonix -) 40 mg PO DAILY [facility] Last Admin: 06/22/19 10:29 Dose: 40 mg Polyethylene Glycol (Miralax (For Daily Use) -) 17 gm PO DAILY [facility] Last Admin: 06/22/19 10:30 Dose: Not Given Rivaroxaban (Xarelto) 20 mg PO DAILY@1800 [facility] Last Admin: 06/21/19 18:16 Dose: 20 mg Senna (Senna -) 1 tab PO BID [facility] Last Admin: 06/22/19 10:30 Dose: Not Given Valsartan (Diovan -) 40 mg PO DAILY [facility] Last Admin: 06/22/19 10:28 Dose: 40 mg - Objective Vital Signs: Vital Signs Temperature 97.7 F 06/22/19 06:00 Pulse Rate 73 06/22/19 06:00 Respiratory Rate 16 06/22/19 06:00 Blood Pressure 122/70 06/22/19 06:00 O2 Sat by Pulse Oximetry (%) 94 L 06/21/19 20:53 Constitutional: Yes: No Distress, Calm Neck: Yes: Supple Cardiovascular: Yes: Regular Rate and Rhythm Respiratory: Yes: Regular, CTA Bilaterally Gastrointestinal: Yes: Normal Bowel Sounds, Soft, Abdomen, Obese Extremities: Yes: Erythema, Other (Resolving RLE hematoma) Edema: No Integumentary: Yes: Venous Stasis Changes Labs: CBC, BMP 06/20/19 05:30 06/20/19 05:30 INR, PTT INR 1.87 (0.83-1.09) H 06/16/19 06:20 Assessment/Plan 06/11/2019 TDS, normal LV size and fxn, LAE, mild MR, TR, AR Problem List - Problems (1) A-fib Code(s): I48.91 - UNSPECIFIED ATRIAL FIBRILLATION Qualifiers: Atrial fibrillation type: unspecified chronic Qualified Code(s): I48.20 - Chronic atrial fibrillation, unspecified; I48.2 - Chronic atrial fibrillation (2) CHF (congestive heart failure) Code(s): I50.9 - HEART FAILURE, UNSPECIFIED (3) Cellulitis of right leg Code(s): L03.115 - CELLULITIS OF RIGHT LOWER LIMB (4) HLD (hyperlipidemia) Code(s): E78.5 - HYPERLIPIDEMIA, UNSPECIFIED (5) HTN (hypertension) Code(s): I10 - ESSENTIAL (PRIMARY) HYPERTENSION (6) Hematoma of right lower extremity Code(s): S80.11XA - CONTUSION OF RIGHT LOWER LEG, INITIAL ENCOUNTER Qualifiers: Encounter type: initial encounter Qualified Code(s): S80.11XA - Contusion of right lower leg, initial encounter Assessment/Plan 1. Persistent atrial fibrillation [id number] score of 5 on DOAC/Xarelto 2. CAD angina pectoris 3. Acute on chronic class I-II NYHA classification LV diastolic failure, clinically resolving 4. HTN 5. Hypercholesterolemia 6. Hematoma with cellulitis - right leg, clinically resolving PLAN: 1. Continue Toprol XL 50 bid and Diovan 40 qd as tolerated 2. Continue Xarelto 20 mg daily with caution and close monitoring of CBC 3. Continue Lasix 40 qd with close monitoring of renal function and electrolytes 4. Completing antibiotic course and wound care management 5. BD and O2 as needed
--- NOTE | 2019-06-22 14:07 | PN ---
Progress Note, Physician History of Present Illness: stable no new issues - Current Medication List Current Medications: Active Medications Acetaminophen (Tylenol -) 650 mg PO Q4H PRN PRN Reason: PAIN LEVEL 1-5 Last Admin: 06/16/19 21:54 Dose: 650 mg Albuterol/Ipratropium (Duoneb -) 1 amp NEB Q6H PRN PRN Reason: SHORTNESS OF BREATH Clotrimazole (Lotrimin 1% Cream -) 1 applic TP BID [facility] Last Admin: 06/22/19 10:29 Dose: Not Given Furosemide (Lasix -) 40 mg PO DAILY [facility] Last Admin: 06/22/19 10:29 Dose: 40 mg Guaifenesin (Robitussin -) 10 ml PO Q6H PRN PRN Reason: COUGH Last Admin: 06/12/19 16:24 Dose: 10 ml Meropenem 1 gm/ Dextrose 100 mls @ 200 mls/hr IVPB Q8H-IV [facility] Last Admin: 06/22/19 10:29 Dose: 200 mls/hr Lactobacillus Acidophilus (Bacid -) 1 tab PO DAILY [facility] Last Admin: 06/22/19 10:29 Dose: 1 tab Metoprolol Succinate (Toprol Xl -) 50 mg PO BID [facility] Last Admin: 06/22/19 10:29 Dose: 50 mg Oxycodone HCl (Roxicodone -) 5 mg PO Q6H PRN PRN Reason: PAIN LEVEL 7 - 10 Last Admin: 06/21/19 18:16 Dose: 5 mg Pantoprazole Sodium (Protonix -) 40 mg PO DAILY [facility] Last Admin: 06/22/19 10:29 Dose: 40 mg Polyethylene Glycol (Miralax (For Daily Use) -) 17 gm PO DAILY [facility] Last Admin: 06/22/19 10:30 Dose: Not Given Rivaroxaban (Xarelto) 20 mg PO DAILY@1800 [facility] Last Admin: 06/21/19 18:16 Dose: 20 mg Senna (Senna -) 1 tab PO BID [facility] Last Admin: 06/22/19 10:30 Dose: Not Given Valsartan (Diovan -) 40 mg PO DAILY [facility] Last Admin: 06/22/19 10:28 Dose: 40 mg - Objective Vital Signs: Vital Signs Temperature 98.5 F 06/22/19 10:00 Pulse Rate 71 06/22/19 10:00 Respiratory Rate 17 06/22/19 10:00 Blood Pressure 135/66 06/22/19 10:00 O2 Sat by Pulse Oximetry (%) 95 06/22/19 09:00 Constitutional: Yes: No Distress, Calm Cardiovascular: Yes: S1, S2 Respiratory: Yes: Regular, CTA Bilaterally Gastrointestinal: Yes: Normal Bowel Sounds, Soft Musculoskeletal: Yes: WNL Extremities: Yes: Other Neurological: Yes: Alert, Oriented Psychiatric: Yes: Alert, Oriented Labs: CBC, BMP 06/20/19 05:30 06/20/19 05:30 INR, PTT INR 1.87 (0.83-1.09) H 06/16/19 06:20 Assessment/Plan Problem List - Problems (1) Cellulitis of right leg Problems reviewed: Yes Code(s): L03.115 - CELLULITIS OF RIGHT LOWER LIMB (2) HLD (hyperlipidemia) Code(s): E78.5 - HYPERLIPIDEMIA, UNSPECIFIED (3) HTN (hypertension) Problems reviewed: Yes Code(s): I10 - ESSENTIAL (PRIMARY) HYPERTENSION (4) Hematoma of right lower extremity Problems reviewed: Yes Code(s): S80.11XA - CONTUSION OF RIGHT LOWER LEG, INITIAL ENCOUNTER Qualifiers: Encounter type: initial encounter Qualified Code(s): S80.11XA - Contusion of right lower leg, initial encounter (5) CHF (congestive heart failure) Problems reviewed: Yes Code(s): I50.9 - HEART FAILURE, UNSPECIFIED (6) A-fib Code(s): I48.91 - UNSPECIFIED ATRIAL FIBRILLATION Qualifiers: Atrial fibrillation type: unspecified chronic Qualified Code(s): I48.20 - Chronic atrial fibrillation, unspecified; I48.2 - Chronic atrial fibrillation plan continue current mgmt elevation of the leg physio abx rest as per the team
[2019-06-22] MEDS: RIVAROXABAN 20 MG TABLET PO SCH (17:41)
[2019-06-23] MEDS ORDERED: DEXTROSE 5%-WATER 100 ML IVPB ONE ×3 (01:20→17:35)
[2019-06-23] MEDS ORDERED: MEROPENEM 1 GM VIAL (RESTRICTED TO ID) IVPB ONE ×3 (01:20→17:35)
[2019-06-23] MEDS: MEROPENEM 1 GM in DEXTROSE 5%-WATER 100 ML IVPB SCH ×3 (02:07→17:46)
[2019-06-23] MEDS ORDERED: PT OWN MED DRAWER 7, Y5N ONE (10:54)
[2019-06-23] MEDS: VALSARTAN 40 MG TABLET (FP) PO SCH (10:56)
[2019-06-23] MEDS: LACTOBACILLUS ACIDOPHILUS 1 TABLET PO SCH (10:56)
[2019-06-23] MEDS: PANTOPRAZOLE 40 MG TABLET (FP) PO SCH (10:56)
[2019-06-23] MEDS: FUROSEMIDE 40 MG TABLET (FP) PO SCH (10:56)
[2019-06-23] MEDS: POLYETHYLENE GLYCOL 3350 119 GM BTL PO SCH (10:56)
[2019-06-23] MEDS: CLOTRIMAZOLE 1% CREAM 15 GM TUBE TP SCH ×2 (10:56→21:06)
[2019-06-23] MEDS: SENNOSIDES 8.6MG TABLET (FP) PO SCH ×2 (10:57→21:05)
--- NOTE | 2019-06-23 13:14 | PN ---
Progress Note, Physician History of Present Illness: Right tender ashley hematoma tenderness and erythema improving, reports improvement in nonproductive cough with dyspnea and wheeze. - Current Medication List Current Medications: Active Medications Acetaminophen (Tylenol -) 650 mg PO Q4H PRN PRN Reason: PAIN LEVEL 1-5 Last Admin: 06/16/19 21:54 Dose: 650 mg Albuterol/Ipratropium (Duoneb -) 1 amp NEB Q6H PRN PRN Reason: SHORTNESS OF BREATH Clotrimazole (Lotrimin 1% Cream -) 1 applic TP BID [facility] Last Admin: 06/23/19 10:56 Dose: 1 applic Furosemide (Lasix -) 40 mg PO DAILY [facility] Last Admin: 06/23/19 10:56 Dose: 40 mg Guaifenesin (Robitussin -) 10 ml PO Q6H PRN PRN Reason: COUGH Last Admin: 06/12/19 16:24 Dose: 10 ml Meropenem 1 gm/ Dextrose 100 mls @ 200 mls/hr IVPB Q8H-IV [facility] Last Admin: 06/23/19 10:56 Dose: 200 mls/hr Lactobacillus Acidophilus (Bacid -) 1 tab PO DAILY [facility] Last Admin: 06/23/19 10:56 Dose: 1 tab Metoprolol Succinate (Toprol Xl -) 50 mg PO BID [facility] Last Admin: 06/23/19 10:56 Dose: 50 mg Pantoprazole Sodium (Protonix -) 40 mg PO DAILY [facility] Last Admin: 06/23/19 10:56 Dose: 40 mg Polyethylene Glycol (Miralax (For Daily Use) -) 17 gm PO DAILY [facility] Last Admin: 06/23/19 10:56 Dose: Not Given Rivaroxaban (Xarelto) 20 mg PO DAILY@1800 [facility] Last Admin: 06/22/19 17:41 Dose: 20 mg Senna (Senna -) 1 tab PO BID [facility] Last Admin: 06/23/19 10:57 Dose: Not Given Valsartan (Diovan -) 40 mg PO DAILY [facility] Last Admin: 06/23/19 10:56 Dose: 40 mg - Objective Vital Signs: Vital Signs Temperature 98.0 F 06/23/19 08:34 Pulse Rate 67 06/23/19 08:34 Respiratory Rate 18 06/23/19 08:34 Blood Pressure 111/73 06/23/19 08:34 O2 Sat by Pulse Oximetry (%) 98 06/23/19 09:00 Constitutional: Yes: No Distress, Calm Neck: Yes: Supple Cardiovascular: Yes: Pulse Irregular Respiratory: Yes: Regular, Diminished Gastrointestinal: Yes: Normal Bowel Sounds, Soft Edema: No Integumentary: Yes: Venous Stasis Changes Wound/Incision: Yes: Other (Resolving hematoma) Labs: CBC, BMP 06/20/19 05:30 06/20/19 05:30 INR, PTT INR 1.87 (0.83-1.09) H 06/16/19 06:20 Assessment/Plan 06/11/2019 TDS, normal LV size and fxn, LAE, mild MR, TR, AR Problem List - Problems (1) A-fib Code(s): I48.91 - UNSPECIFIED ATRIAL FIBRILLATION Qualifiers: Atrial fibrillation type: unspecified chronic Qualified Code(s): I48.20 - Chronic atrial fibrillation, unspecified; I48.2 - Chronic atrial fibrillation (2) CHF (congestive heart failure) Code(s): I50.9 - HEART FAILURE, UNSPECIFIED (3) Cellulitis of right leg Code(s): L03.115 - CELLULITIS OF RIGHT LOWER LIMB (4) HLD (hyperlipidemia) Code(s): E78.5 - HYPERLIPIDEMIA, UNSPECIFIED (5) HTN (hypertension) Code(s): I10 - ESSENTIAL (PRIMARY) HYPERTENSION (6) Hematoma of right lower extremity Code(s): S80.11XA - CONTUSION OF RIGHT LOWER LEG, INITIAL ENCOUNTER Qualifiers: Encounter type: initial encounter Qualified Code(s): S80.11XA - Contusion of right lower leg, initial encounter Assessment/Plan 1. Persistent atrial fibrillation [id number] score of 5 on DOAC/Xarelto 2. CAD angina pectoris 3. Acute on chronic class I-II NYHA classification LV diastolic failure, clinically resolving 4. HTN 5. Hypercholesterolemia 6. Hematoma with cellulitis - right leg, clinically resolving PLAN: 1. Continue Toprol XL 50 bid and Diovan 40 qd as tolerated 2. Continue Xarelto 20 mg daily with caution and close monitoring of CBC 3. Continue Lasix 40 qd with close monitoring of renal function and electrolytes 4. Completing antibiotic course and wound care management 5. BD and O2 as needed
--- NOTE | 2019-06-23 13:27 | PN ---
Progress Note (short form) - Note Progress Note: Decreased pain in right leg, decreased erythema Vital Signs - 24 hr 06/22/19 06/22/19 06/22/19 14:00 18:00 20:53 Temperature 98.1 F 97.5 F L Pulse Rate 85 76 Respiratory 18 20 Rate Blood Pressure 106/65 O2 Sat by Pulse 95 Oximetry (%) 06/22/19 06/23/19 06/23/19 22:00 06:00 08:34 Temperature 98.3 F 97.8 F 98.0 F Pulse Rate 80 78 67 Respiratory 18 16 18 Rate Blood Pressure 123/74 110/70 111/73 O2 Sat by Pulse Oximetry (%) 06/23/19 09:00 Temperature Pulse Rate Respiratory Rate Blood Pressure O2 Sat by Pulse 98 Oximetry (%) Current Medications Generic Name Dose Route Start Last Admin Trade Name Freq PRN Reason Stop Dose Admin Acetaminophen 650 mg 06/10/19 02:56 06/16/19 21:54 Tylenol - PO 650 mg Q4H PRN Administration PAIN LEVEL 1-5 Albuterol/Ipratropium 1 amp 06/20/19 11:42 Duoneb - NEB Q6H PRN SHORTNESS OF BREATH Clotrimazole 1 applic 06/20/19 22:45 06/23/19 10:56 Lotrimin 1% Cream - TP 1 applic BID [facility] Administration Furosemide 40 mg 06/11/19 10:00 06/23/19 10:56 Lasix - PO 40 mg DAILY [facility] Administration Guaifenesin 10 ml 06/12/19 13:37 06/12/19 16:24 Robitussin - PO 10 ml Q6H PRN Administration COUGH Meropenem 1 gm/ Dextrose 100 mls @ 200 mls/hr 06/20/19 12:45 06/23/19 10:56 IVPB 200 mls/hr Q8H-IV [facility] Administration Lactobacillus Acidophilus 1 tab 06/19/19 11:00 06/23/19 10:56 Bacid - PO 1 tab DAILY [facility] Administration Metoprolol Succinate 50 mg 06/10/19 10:00 06/23/19 10:56 Toprol Xl - PO 50 mg BID [facility] Administration Pantoprazole Sodium 40 mg 06/12/19 13:45 06/23/19 10:56 Protonix - PO 40 mg DAILY [facility] Administration Polyethylene Glycol 17 gm 06/14/19 11:45 06/23/19 10:56 Miralax (For Daily Use) - PO Not Given DAILY [facility] Rivaroxaban 20 mg 06/16/19 18:00 06/22/19 17:41 Xarelto PO 20 mg DAILY@1800 [facility] Administration Senna 1 tab 06/10/19 10:00 06/23/19 10:57 Senna - PO Not Given BID [facility] Valsartan 40 mg 06/16/19 10:30 06/23/19 10:56 Diovan - PO 40 mg DAILY [facility] Administration 06/09/19 23:10 Blood - Peripheral Venous Blood Culture - Final NO GROWTH AFTER 5 DAYS INCUBATION 06/09/19 23:10 Blood - Peripheral Venous Blood Culture - Final NO GROWTH AFTER 5 DAYS INCUBATION 06/09/19 23:10 Calf - Right Medial Gram Stain - Final 06/09/19 23:10 Calf - Right Medial Wound Culture - Final Escherichia Coli 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 Enterococcus Faecalis Staphylococcus Coagulase Neg S1 S2 RRR Lungs no ronchi Abd- soft, NT Edema right leg Hematoma+ decreased size , slight opening noted on hematoma rash underneath intra-abd folds Decreased erythema tender PLAN IV antibiotics -- possible dc by middle of next week xray of right shoulder-->OA nebs as needed for cough-->better pain control OOB continue Xarelto physical therapy antifungal cream to intra-abd folds warm compresses to hematoma Problem List - Problems (1) A-fib Code(s): I48.91 - UNSPECIFIED ATRIAL FIBRILLATION Qualifiers: Atrial fibrillation type: unspecified chronic Qualified Code(s): I48.20 - Chronic atrial fibrillation, unspecified; I48.2 - Chronic atrial fibrillation (2) Anxiety Code(s): F41.9 - ANXIETY DISORDER, UNSPECIFIED (3) Cellulitis of right leg Code(s): L03.115 - CELLULITIS OF RIGHT LOWER LIMB (4) HLD (hyperlipidemia) Code(s): E78.5 - HYPERLIPIDEMIA, UNSPECIFIED (5) HTN (hypertension) Code(s): I10 - ESSENTIAL (PRIMARY) HYPERTENSION (6) Hematoma of right lower extremity Code(s): S80.11XA - CONTUSION OF RIGHT LOWER LEG, INITIAL ENCOUNTER Qualifiers: Encounter type: initial encounter Qualified Code(s): S80.11XA - Contusion of right lower leg, initial encounter
[2019-06-23] MEDS: RIVAROXABAN 20 MG TABLET PO SCH (17:47)
[2019-06-23] MEDS: ACETAMINOPHEN 325 MG TABLET (FP) PO PRN (23:39)
[2019-06-24] MEDS ORDERED: DEXTROSE 5%-WATER 100 ML IVPB ONE ×3 (01:32→17:11)
[2019-06-24] MEDS ORDERED: MEROPENEM 1 GM VIAL (RESTRICTED TO ID) IVPB ONE ×3 (01:32→17:10)
[2019-06-24] MEDS: MEROPENEM 1 GM in DEXTROSE 5%-WATER 100 ML IVPB SCH ×3 (01:43→17:15)
[2019-06-24] MEDS ORDERED: traMADol HCL 50 MG TABLET PO PRN (09:08)
--- NOTE | 2019-06-24 09:08 | PN ---
Progress Note (short form) - Note Progress Note: Decreased pain in right leg, decreased erythema Vital Signs - 24 hr 06/23/19 06/23/19 06/23/19 15:37 18:48 21:00 Temperature 97.8 F 98.5 F 98.8 F Pulse Rate 86 76 Respiratory 18 20 18 Rate Blood Pressure 116/57 L 136/70 118/72 O2 Sat by Pulse 96 Oximetry (%) 06/24/19 05:57 Temperature 97.9 F Pulse Rate 96 H Respiratory 18 Rate Blood Pressure 129/85 O2 Sat by Pulse Oximetry (%) Current Medications Generic Name Dose Route Start Last Admin Trade Name Freq PRN Reason Stop Dose Admin Acetaminophen 650 mg 06/10/19 02:56 06/23/19 23:39 Tylenol - PO 650 mg Q4H PRN Administration PAIN LEVEL 1-5 Albuterol/Ipratropium 1 amp 06/20/19 11:42 Duoneb - NEB Q6H PRN SHORTNESS OF BREATH Clotrimazole 1 applic 06/20/19 22:45 06/23/19 21:06 Lotrimin 1% Cream - TP 1 applic BID [facility] Administration Furosemide 40 mg 06/11/19 10:00 06/23/19 10:56 Lasix - PO 40 mg DAILY [facility] Administration Guaifenesin 10 ml 06/12/19 13:37 06/12/19 16:24 Robitussin - PO 10 ml Q6H PRN Administration COUGH Meropenem 1 gm/ Dextrose 100 mls @ 200 mls/hr 06/20/19 12:45 06/24/19 01:43 IVPB 200 mls/hr Q8H-IV [facility] Administration Lactobacillus Acidophilus 1 tab 06/19/19 11:00 06/23/19 10:56 Bacid - PO 1 tab DAILY [facility] Administration Metoprolol Succinate 50 mg 06/10/19 10:00 06/23/19 21:06 Toprol Xl - PO 50 mg BID [facility] Administration Pantoprazole Sodium 40 mg 06/12/19 13:45 06/23/19 10:56 Protonix - PO 40 mg DAILY [facility] Administration Polyethylene Glycol 17 gm 06/14/19 11:45 06/23/19 10:56 Miralax (For Daily Use) - PO Not Given DAILY [facility] Rivaroxaban 20 mg 06/16/19 18:00 06/23/19 17:47 Xarelto PO 20 mg DAILY@1800 [facility] Administration Senna 1 tab 06/10/19 10:00 06/23/19 21:05 Senna - PO Not Given BID [facility] Valsartan 40 mg 06/16/19 10:30 06/23/19 10:56 Diovan - PO 40 mg DAILY [facility] Administration S1 S2 RRR Lungs no ronchi Abd- soft, NT Edema right leg Hematoma+ decreased size , slight opening noted on hematoma rash underneath intra-abd folds Decreased erythema tender PLAN IV antibiotics -- possible dc by middle of next week xray of right shoulder-->OA nebs as needed for cough-->better pain control OOB continue Xarelto physical therapy antifungal cream to intra-abd folds warm compresses to hematoma Problem List - Problems (1) A-fib Code(s): I48.91 - UNSPECIFIED ATRIAL FIBRILLATION Qualifiers: Atrial fibrillation type: unspecified chronic Qualified Code(s): I48.20 - Chronic atrial fibrillation, unspecified; I48.2 - Chronic atrial fibrillation (2) Anxiety Code(s): F41.9 - ANXIETY DISORDER, UNSPECIFIED (3) Cellulitis of right leg Code(s): L03.115 - CELLULITIS OF RIGHT LOWER LIMB (4) HLD (hyperlipidemia) Code(s): E78.5 - HYPERLIPIDEMIA, UNSPECIFIED (5) HTN (hypertension) Code(s): I10 - ESSENTIAL (PRIMARY) HYPERTENSION (6) Hematoma of right lower extremity Code(s): S80.11XA - CONTUSION OF RIGHT LOWER LEG, INITIAL ENCOUNTER Qualifiers: Encounter type: initial encounter Qualified Code(s): S80.11XA - Contusion of right lower leg, initial encounter
[2019-06-24] MEDS: LACTOBACILLUS ACIDOPHILUS 1 TABLET PO SCH (11:17)
[2019-06-24] MEDS: POLYETHYLENE GLYCOL 3350 119 GM BTL PO SCH (11:17)
[2019-06-24] MEDS: FUROSEMIDE 40 MG TABLET (FP) PO SCH (11:17)
[2019-06-24] MEDS: PANTOPRAZOLE 40 MG TABLET (FP) PO SCH (11:17)
[2019-06-24] MEDS: SENNOSIDES 8.6MG TABLET (FP) PO SCH ×2 (11:18→22:13)
[2019-06-24] MEDS: NYSTATIN/TRIAMCINOLONE TOPICAL CREAM 15 GM TUBE TP SCH ×2 (11:19→22:58)
--- NOTE | 2019-06-24 11:33 | PN ---
Progress Note, Physician History of Present Illness: stable no new issues - Current Medication List Current Medications: Active Medications Acetaminophen (Tylenol -) 650 mg PO Q4H PRN PRN Reason: PAIN LEVEL 1-5 Last Admin: 06/23/19 23:39 Dose: 650 mg Albuterol/Ipratropium (Duoneb -) 1 amp NEB Q6H PRN PRN Reason: SHORTNESS OF BREATH Furosemide (Lasix -) 40 mg PO DAILY [facility] Last Admin: 06/24/19 11:17 Dose: 40 mg Guaifenesin (Robitussin -) 10 ml PO Q6H PRN PRN Reason: COUGH Last Admin: 06/12/19 16:24 Dose: 10 ml Meropenem 1 gm/ Dextrose 100 mls @ 200 mls/hr IVPB Q8H-IV [facility] Last Admin: 06/24/19 11:16 Dose: 200 mls/hr Lactobacillus Acidophilus (Bacid -) 1 tab PO DAILY [facility] Last Admin: 06/24/19 11:17 Dose: 1 tab Metoprolol Succinate (Toprol Xl -) 50 mg PO BID [facility] Last Admin: 06/24/19 11:18 Dose: 50 mg Nystatin/Triamcinolone Acetonide (Mycolog Ii Cream -) 1 applic TP BID [facility] Last Admin: 06/24/19 11:19 Dose: 1 applic Pantoprazole Sodium (Protonix -) 40 mg PO DAILY [facility] Last Admin: 06/24/19 11:17 Dose: 40 mg Polyethylene Glycol (Miralax (For Daily Use) -) 17 gm PO DAILY [facility] Last Admin: 06/24/19 11:17 Dose: Not Given Rivaroxaban (Xarelto) 20 mg PO DAILY@1800 [facility] Last Admin: 06/23/19 17:47 Dose: 20 mg Senna (Senna -) 1 tab PO BID [facility] Last Admin: 06/24/19 11:18 Dose: Not Given Tramadol HCl (Ultram -) 50 mg PO Q4H PRN PRN Reason: PAIN LEVEL 6-10 Valsartan (Diovan -) 40 mg PO DAILY [facility] Last Admin: 06/23/19 10:56 Dose: 40 mg - Objective Vital Signs: Vital Signs Temperature 98.1 F 06/24/19 09:00 Pulse Rate 65 06/24/19 09:00 Respiratory Rate 18 06/24/19 09:00 Blood Pressure 119/72 06/24/19 09:00 O2 Sat by Pulse Oximetry (%) 96 06/23/19 21:00 Constitutional: Yes: No Distress, Calm Cardiovascular: Yes: S1, S2 Respiratory: Yes: Regular, CTA Bilaterally Gastrointestinal: Yes: Normal Bowel Sounds, Soft Musculoskeletal: Yes: WNL Extremities: Yes: Other Wound/Incision: Yes: Draining, Other Neurological: Yes: Alert, Oriented Psychiatric: Yes: Alert, Oriented Labs: CBC, BMP 06/20/19 05:30 06/20/19 05:30 INR, PTT INR 1.87 (0.83-1.09) H 06/16/19 06:20 Assessment/Plan Problem List - Problems (1) Cellulitis of right leg Problems reviewed: Yes Code(s): L03.115 - CELLULITIS OF RIGHT LOWER LIMB (2) HLD (hyperlipidemia) Code(s): E78.5 - HYPERLIPIDEMIA, UNSPECIFIED (3) HTN (hypertension) Problems reviewed: Yes Code(s): I10 - ESSENTIAL (PRIMARY) HYPERTENSION (4) Hematoma of right lower extremity Problems reviewed: Yes Code(s): S80.11XA - CONTUSION OF RIGHT LOWER LEG, INITIAL ENCOUNTER Qualifiers: Encounter type: initial encounter Qualified Code(s): S80.11XA - Contusion of right lower leg, initial encounter (5) CHF (congestive heart failure) Problems reviewed: Yes Code(s): I50.9 - HEART FAILURE, UNSPECIFIED (6) A-fib Code(s): I48.91 - UNSPECIFIED ATRIAL FIBRILLATION Qualifiers: Atrial fibrillation type: unspecified chronic Qualified Code(s): I48.20 - Chronic atrial fibrillation, unspecified; I48.2 - Chronic atrial fibrillation plan continue current mgmt physio abx rest as per the team
[2019-06-24] MEDS: VALSARTAN 40 MG TABLET (FP) PO SCH (12:45)
[2019-06-24] MEDS: RIVAROXABAN 20 MG TABLET PO SCH (17:15)
[2019-06-25] MEDS ORDERED: MEROPENEM 1 GM VIAL (RESTRICTED TO ID) IVPB ONE ×2 (01:18→10:01)
[2019-06-25] MEDS ORDERED: DEXTROSE 5%-WATER 100 ML IVPB ONE ×2 (01:18→10:01)
[2019-06-25] MEDS: MEROPENEM 1 GM in DEXTROSE 5%-WATER 100 ML IVPB SCH ×2 (01:23→10:39)
[2019-06-25 05:43] VITALS: TEMP 97.8
--- NOTE | 2019-06-25 10:22 | PN ---
Progress Note, Physician Chief Complaint: Events noted Not in distress History of Present Illness: Patient was seen and examined. Awake and alert. Chart was reviewed Denies chest pain or palpitations Feels better White clear sputum - Current Medication List Current Medications: Active Medications Acetaminophen (Tylenol -) 650 mg PO Q4H PRN PRN Reason: PAIN LEVEL 1-5 Last Admin: 06/23/19 23:39 Dose: 650 mg Albuterol/Ipratropium (Duoneb -) 1 amp NEB Q6H PRN PRN Reason: SHORTNESS OF BREATH Furosemide (Lasix -) 40 mg PO DAILY [facility] Last Admin: 06/24/19 11:17 Dose: 40 mg Guaifenesin (Robitussin -) 10 ml PO Q6H PRN PRN Reason: COUGH Last Admin: 06/12/19 16:24 Dose: 10 ml Meropenem 1 gm/ Dextrose 100 mls @ 200 mls/hr IVPB Q8H-IV [facility] Last Admin: 06/25/19 01:23 Dose: 200 mls/hr Lactobacillus Acidophilus (Bacid -) 1 tab PO DAILY [facility] Last Admin: 06/24/19 11:17 Dose: 1 tab Metoprolol Succinate (Toprol Xl -) 50 mg PO BID [facility] Last Admin: 06/24/19 22:13 Dose: 50 mg Nystatin/Triamcinolone Acetonide (Mycolog Ii Cream -) 1 applic TP BID [facility] Last Admin: 06/24/19 22:58 Dose: 1 applic Pantoprazole Sodium (Protonix -) 40 mg PO DAILY [facility] Last Admin: 06/24/19 11:17 Dose: 40 mg Polyethylene Glycol (Miralax (For Daily Use) -) 17 gm PO DAILY [facility] Last Admin: 06/24/19 11:17 Dose: Not Given Rivaroxaban (Xarelto) 20 mg PO DAILY@1800 [facility] Last Admin: 06/24/19 17:15 Dose: 20 mg Senna (Senna -) 1 tab PO BID [facility] Last Admin: 06/24/19 22:13 Dose: Not Given Tramadol HCl (Ultram -) 50 mg PO Q4H PRN PRN Reason: PAIN LEVEL 6-10 Valsartan (Diovan -) 40 mg PO DAILY [facility] Last Admin: 06/24/19 12:45 Dose: 40 mg - Objective Vital Signs: Vital Signs Temperature 97.8 F 06/25/19 08:47 Pulse Rate 65 06/25/19 08:47 Respiratory Rate 18 06/25/19 08:47 Blood Pressure 121/72 06/25/19 08:47 O2 Sat by Pulse Oximetry (%) 93 L 06/24/19 21:00 Eyes: Yes: PERRL HENT: Yes: Atraumatic Neck: Yes: Supple Cardiovascular: Yes: Pulse Irregular, S1, S2 Respiratory: Yes: CTA Bilaterally Gastrointestinal: Yes: Normal Bowel Sounds, Soft. No: Tenderness Edema: No Additional Findings/Remarks: - Review of Systems Constitutional: denies: Chills, Fever Cardiovascular: denies: Chest Pain, Palpitations, Shortness of Breath Respiratory: denies: Cough, Hemoptysis, Orthopnea, PND, SOB, SOB on Exertion Gastrointestinal: denies: Abdominal Pain, Constipation, Diarrhea, Melena, Nausea , Rectal Bleeding, Vomiting Genitourinary: denies: Dysuria, Hematuria Neurological: denies: Headache, Seizure, Syncope Problem List - Problems (1) A-fib Code(s): I48.91 - UNSPECIFIED ATRIAL FIBRILLATION Qualifiers: Atrial fibrillation type: unspecified chronic Qualified Code(s): I48.20 - Chronic atrial fibrillation, unspecified; I48.2 - Chronic atrial fibrillation (2) CHF (congestive heart failure) Code(s): I50.9 - HEART FAILURE, UNSPECIFIED (3) Cellulitis of right leg Code(s): L03.115 - CELLULITIS OF RIGHT LOWER LIMB (4) HLD (hyperlipidemia) Code(s): E78.5 - HYPERLIPIDEMIA, UNSPECIFIED (5) HTN (hypertension) Code(s): I10 - ESSENTIAL (PRIMARY) HYPERTENSION (6) Hematoma of right lower extremity Code(s): S80.11XA - CONTUSION OF RIGHT LOWER LEG, INITIAL ENCOUNTER Qualifiers: Encounter type: initial encounter Qualified Code(s): S80.11XA - Contusion of right lower leg, initial encounter Assessment/Plan 1. Persistent atrial fibrillation [id number] score of 5 on DOAC/Xarelto 2. CAD angina pectoris 3. Acute on chronic class I-II NYHA classification LV diastolic failure, clinically resolving 4. HTN 5. Hypercholesterolemia 6. Hematoma with cellulitis - right leg, clinically resolving PLAN: 1. Continue Toprol XL and Diovan as tolerated 2. Continue Xarelto 20 mg daily, with caution and close monitoring of CBC 3. Continue Lasix with close monitoring of renal function and electrolytes 4. Antibiotic 5. Wound care/management Discharge planning. Follow up with Dr. Reyna Cain in the office García Velásquez MD
[2019-06-25] MEDS: LACTOBACILLUS ACIDOPHILUS 1 TABLET PO SCH (10:39)
[2019-06-25] MEDS: FUROSEMIDE 40 MG TABLET (FP) PO SCH (10:39)
[2019-06-25] MEDS: PANTOPRAZOLE 40 MG TABLET (FP) PO SCH (10:39)
[2019-06-25] MEDS: VALSARTAN 40 MG TABLET (FP) PO SCH (10:40)
[2019-06-25] MEDS: SENNOSIDES 8.6MG TABLET (FP) PO SCH (10:46)
[2019-06-25] MEDS: NYSTATIN/TRIAMCINOLONE TOPICAL CREAM 15 GM TUBE TP SCH (10:46)
[2019-06-25] MEDS: POLYETHYLENE GLYCOL 3350 119 GM BTL PO SCH (10:46)
--- NOTE | 2019-06-25 12:20 | DS ---
Physical Examination Vital Signs: Vital Signs Temperature 97.8 F 06/25/19 08:47 Pulse Rate 65 06/25/19 08:47 Respiratory Rate 18 06/25/19 08:47 Blood Pressure 121/72 06/25/19 08:47 O2 Sat by Pulse Oximetry (%) 97 06/25/19 09:00 Findings/Remarks: pt seen/ examined comfortable chart reviewed feels better Constitutional: Yes: No Distress, Calm Eyes: Yes: Conjunctiva Clear Neck: Yes: Supple Cardiovascular: Yes: Pulse Irregular Respiratory: Yes: Diminished Gastrointestinal: Yes: Soft, Abdomen, Obese Extremities: Yes: Erythema (much better) Edema: LLE: Trace, RLE: Trace Neurological: Yes: Alert Labs: CBC, BMP 06/20/19 05:30 06/20/19 05:30 Discharge Summary Problems reviewed: Yes Reason For Visit: CELLULITIS Current Active Problems A-fib (Acute) Anxiety (Acute) CHF (congestive heart failure) (Acute) Cellulitis of right leg (Acute) HLD (hyperlipidemia) (Acute) HTN (hypertension) (Acute) Hematoma of right lower extremity (Acute) Obesity (Acute) Sedentary lifestyle (Acute) Hospital Course: admitted for right lower extremity -- cellulitis w/c -- E coli ESBL Treated with Abx- Meropenam much better d/w I/D today stable for d/c off abx pt wants to go home only d/w RN/ [employer] Will send with VNS Meds reconcilled-- will send to her pharmacy pt to follow with her pmd Local care Pt in agreement D/C today Condition: Stable - Instructions Referrals: Wade Martinez MD [Primary Care Provider] - - Home Medications Comprehensive Discharge Medication List: Ambulatory Orders Rivaroxaban [Xarelto] 20 mg PO DAILY #0 tablet 10/19/11 Atorvastatin Ca [Lipitor] 20 mg PO HS 06/10/19 Clotrimazole 1 applic TP DAILY 06/10/19 Furosemide 40 mg PO DAILY 06/10/19 Potassium Chloride 20 meq PO DAILY 06/10/19 Acetaminophen [Tylenol .Regular Strength -] 650 mg PO Q4H PRN tablet 06/25/19 Clotrimazole [Lotrimin -] 1 applic TP BID tube 06/25/19 Furosemide [Lasix -] 40 mg PO DAILY 30 Days #30 tablet 06/25/19 Lactobacillus Acidophilus [Bacid -] 1 tab PO DAILY #30 tab 06/25/19 Metoprolol Succinate [Toprol XL -] 50 mg PO BID 30 Days #60 tab.sr.24h 06/25/19 Pantoprazole Sodium [Protonix -] 40 mg PO DAILY 30 Days #30 tablet.ec 06/25/19 Polyethylene Glycol 3350 [Miralax 119 gm Btl -] 17 gm PO DAILY PRN 30 Days #1 bottle 06/25/19 Sennosides [Senna -] 1 tab PO BID tablet 06/25/19 Valsartan [Diovan] 40 mg PO DAILY 30 Days #30 tablet 06/25/19
--- NOTE | 2019-06-25 12:20 | PN ---
Progress Note, Physician History of Present Illness: stable no new issues - Current Medication List Current Medications: Active Medications Acetaminophen (Tylenol -) 650 mg PO Q4H PRN PRN Reason: PAIN LEVEL 1-5 Last Admin: 06/23/19 23:39 Dose: 650 mg Albuterol/Ipratropium (Duoneb -) 1 amp NEB Q6H PRN PRN Reason: SHORTNESS OF BREATH Furosemide (Lasix -) 40 mg PO DAILY [facility] Last Admin: 06/25/19 10:39 Dose: 40 mg Guaifenesin (Robitussin -) 10 ml PO Q6H PRN PRN Reason: COUGH Last Admin: 06/12/19 16:24 Dose: 10 ml Meropenem 1 gm/ Dextrose 100 mls @ 200 mls/hr IVPB Q8H-IV [facility] Last Admin: 06/25/19 10:39 Dose: 200 mls/hr Lactobacillus Acidophilus (Bacid -) 1 tab PO DAILY [facility] Last Admin: 06/25/19 10:39 Dose: 1 tab Metoprolol Succinate (Toprol Xl -) 50 mg PO BID [facility] Last Admin: 06/25/19 10:39 Dose: 50 mg Nystatin/Triamcinolone Acetonide (Mycolog Ii Cream -) 1 applic TP BID [facility] Last Admin: 06/25/19 10:46 Dose: 1 applic Pantoprazole Sodium (Protonix -) 40 mg PO DAILY [facility] Last Admin: 06/25/19 10:39 Dose: 40 mg Polyethylene Glycol (Miralax (For Daily Use) -) 17 gm PO DAILY [facility] Last Admin: 06/25/19 10:46 Dose: Not Given Rivaroxaban (Xarelto) 20 mg PO DAILY@1800 [facility] Last Admin: 06/24/19 17:15 Dose: 20 mg Senna (Senna -) 1 tab PO BID [facility] Last Admin: 06/25/19 10:46 Dose: Not Given Tramadol HCl (Ultram -) 50 mg PO Q4H PRN PRN Reason: PAIN LEVEL 6-10 Valsartan (Diovan -) 40 mg PO DAILY [facility] Last Admin: 06/25/19 10:40 Dose: 40 mg - Objective Vital Signs: Vital Signs Temperature 97.8 F 06/25/19 08:47 Pulse Rate 65 06/25/19 08:47 Respiratory Rate 18 06/25/19 08:47 Blood Pressure 121/72 06/25/19 08:47 O2 Sat by Pulse Oximetry (%) 97 06/25/19 09:00 Constitutional: Yes: No Distress, Calm Cardiovascular: Yes: S1, S2 Respiratory: Yes: Regular, CTA Bilaterally Gastrointestinal: Yes: Normal Bowel Sounds, Soft Musculoskeletal: Yes: WNL Extremities: Yes: Other Wound/Incision: Yes: Other (hematoma of the leg) Neurological: Yes: Alert, Oriented Psychiatric: Yes: Alert, Oriented Labs: CBC, BMP 06/20/19 05:30 06/20/19 05:30 INR, PTT INR 1.87 (0.83-1.09) H 06/16/19 06:20 Assessment/Plan Problem List - Problems (1) Cellulitis of right leg Problems reviewed: Yes Code(s): L03.115 - CELLULITIS OF RIGHT LOWER LIMB (2) HLD (hyperlipidemia) Code(s): E78.5 - HYPERLIPIDEMIA, UNSPECIFIED (3) HTN (hypertension) Problems reviewed: Yes Code(s): I10 - ESSENTIAL (PRIMARY) HYPERTENSION (4) Hematoma of right lower extremity Problems reviewed: Yes Code(s): S80.11XA - CONTUSION OF RIGHT LOWER LEG, INITIAL ENCOUNTER Qualifiers: Encounter type: initial encounter Qualified Code(s): S80.11XA - Contusion of right lower leg, initial encounter (5) CHF (congestive heart failure) Problems reviewed: Yes Code(s): I50.9 - HEART FAILURE, UNSPECIFIED (6) A-fib Code(s): I48.91 - UNSPECIFIED ATRIAL FIBRILLATION Qualifiers: Atrial fibrillation type: unspecified chronic Qualified Code(s): I48.20 - Chronic atrial fibrillation, unspecified; I48.2 - Chronic atrial fibrillation plan continue current mgmt physio will stop abx rest as per the team
[2019-06-25 15:21] VITALS: BP 131/72; PULSE 75
[2019-06-25 15:53] VITALS: BMI 39.3
== END 2019-06-25 17:34 | disposition home health service (06) | DRG 602 ==
LOC: JER 21:43 → JERBED 06-10 01:59 → J6S 06-10 06:40 → J4S 06-12 18:53
PROVIDERS: ADMIT Internal Medicine; ATTEND Internal Medicine
DX: L03.115 Cellulitis of right lower limb (principal); I50.33 Acute on chronic diastolic (congestive) heart failure; I48.20 Chronic atrial fibrillation, unspecified; E78.5 Hyperlipidemia, unspecified; S80.11XA Contusion of right lower leg, initial encounter; E66.9 Obesity, unspecified; Z68.39 Body mass index [BMI] 39.0-39.9, adult; F41.9 Anxiety disorder, unspecified; K21.9 Gastro-esophageal reflux disease without esophagitis; I11.0 Hypertensive heart disease with heart failure; R21 Rash and other nonspecific skin eruption; I25.119 Atherosclerotic heart disease of native coronary artery with unspecified angina pectoris; M19.011 Primary osteoarthritis, right shoulder; B96.20 Unspecified Escherichia coli [E. coli] as the cause of diseases classified elsewhere; B95.2 Enterococcus as the cause of diseases classified elsewhere; B95.8 Unspecified staphylococcus as the cause of diseases classified elsewhere; Z91.89 Other specified personal risk factors, not elsewhere classified; X58.XXXA Exposure to other specified factors, initial encounter; Y92.098 Other place in other non-institutional residence as the place of occurrence of the external cause
CPT/HCPCS: 36415; 71045-TC-FY; 73030-TC-RT-FY; 73562-TC-RT-FY; 73590-TC-RT-FY; 73610-TC-RT-FY; 73630-TC-RT-FY; 76882-TC-RT-FY; 80048; 80053; 80061; 83036; 83721; 84443; 85025; 85027; 85610; 85730; 87040; 87070; 87077; 87186; 87205; 93005; 93010; 93306-TC; 97116-GP; 97162-GP; 99283-25

== ENCOUNTER 2021-07-06 14:12 | Inpatient (IN) | payer BC ==
[2021-07-06 14:30] VITALS: BMI 31.8
[2021-07-06 17:42] LABS: BASO % 0.4 % (0-2.0); EOS % 0.8 % (0-4.5); HEMATOCRIT 43.3 % (32.4-45.2); HEMOGLOBIN 14.4 GM/dL (10.7-15.3); LYMPH % 30.8 % (8-40); MCH 31.8 pg (25.7-33.7); MCHC 33.3 g/dl (32.0-36.0); MEAN CELL VOLUME 95.3 fl (80-96); MEAN PLT VOLUME 7.4 fl (7.5-11.1); MONO % 9.4 % (3.8-10.2); NEUT % 58.6 % (42.8-82.8); PLATELET COUNT 229 10^3/uL (134-434); RBC 4.54 M/mm3 (3.60-5.2); RDW 13.1 % (11.6-15.6); WHITE BLOOD COUNT 8.7 K/mm3 (4.0-10.0)
[2021-07-06 17:50] LABS: INR 1.41 (0.83-1.09); PROTHROMBIN TIME (PATIENT) 15.9 SEC (9.7-13.0)
[2021-07-06 17:52] LABS: ACTIVATED PTT 33.8 SECONDS (25.2-36.5)
[2021-07-06 18:01] LABS: CHLORIDE 107 mmol/L (98-107); SODIUM 141 mmol/L (136-145)
[2021-07-06 18:03] LABS: CALCIUM 9.1 mg/dL (8.5-10.1)
[2021-07-06 18:04] LABS: ALBUMIN 3.3 g/dl (3.4-5.0); ANION GAP 9 MMOL/L (8-16); BLOOD UREA NITROGEN 16.8 mg/dL (7-18); CO2 26 mmol/L (21-32); GLUCOSE,RANDOM 87 mg/dL (74-106)
[2021-07-06 18:06] LABS: SGPT/ALT 22 U/L (13-61)
[2021-07-06 18:07] LABS: CREATININE 0.7 mg/dL (0.55-1.3); SGOT/AST 19 U/L (15-37)
[2021-07-06 18:08] LABS: BILIRUBIN,TOTAL 0.4 mg/dL (0.2-1); TOT PROT 7.1 g/dl (6.4-8.2)
[2021-07-06 18:10] LABS: ALK PHOS 116 U/L (45-117)
[2021-07-06] MEDS ORDERED: POLYETHYLENE GLYCOL (HEALTHYLAX) 3350 17 GM PACKET PO PRN (22:42)
[2021-07-06] MEDS ORDERED: POTASSIUM CHLORIDE TABS 20 MEQ TABLET.ER (FP) PO ONE (23:16)
[2021-07-06] MEDS: POTASSIUM CHLORIDE TABS 20 MEQ TABLET.ER (FP) PO SCH (23:20)
[2021-07-07] MEDS ORDERED: RIVAROXABAN 20 MG TABLET PO ONE (00:14)
[2021-07-07] MEDS ORDERED: MAG HYDROX/AL HYDROX/SIMETH 30 ML UNIT-DOSE CUP PO PRN (04:53)
[2021-07-07] MEDS ORDERED: PANTOPRAZOLE SODIUM 40 MG VIAL IVPUSH ONE (04:54)
[2021-07-07] MEDS ORDERED: PANTOPRAZOLE SODIUM 40 MG/100 ML BAG IVPB ONE (05:00)
[2021-07-07] MEDS ORDERED: FUROSEMIDE 40 MG TABLET (FP) ONE (08:43)
[2021-07-07] MEDS ORDERED: POTASSIUM CHLORIDE TABS 20 MEQ TABLET.ER (FP) PO ONE (08:43)
[2021-07-07] MEDS ORDERED: POTASSIUM CHLORIDE TABS 10 MEQ TABLET.ER (FP) ONE (08:45)
[2021-07-07] MEDS ORDERED: RIVAROXABAN 20 MG TABLET PO SCH (10:00)
[2021-07-07] MEDS: POTASSIUM CHLORIDE TABS 20 MEQ TABLET.ER (FP) PO SCH (10:04)
[2021-07-07] MEDS: FUROSEMIDE 40 MG TABLET (FP) PO SCH (10:04)
[2021-07-07 10:43] LABS: BASO % 0.5 % (0-2.0); EOS % 0.4 % (0-4.5); HEMATOCRIT 39.8 % (32.4-45.2); HEMOGLOBIN 13.5 GM/dL (10.7-15.3); LYMPH % 19.5 % (8-40); MCH 32.2 pg (25.7-33.7); MEAN CELL VOLUME 94.6 fl (80-96); MEAN PLT VOLUME 7.2 fl (7.5-11.1); MONO % 9.9 % (3.8-10.2); NEUT % 69.7 % (42.8-82.8); PLATELET COUNT 214 10^3/uL (134-434); WHITE BLOOD COUNT 6.8 K/mm3 (4.0-10.0)
[2021-07-07] MEDS ORDERED: CEFTRIAXONE 1 GM in DEXTROSE 5%-WATER - 50 ML IVPB SCH (10:45)
[2021-07-07] MEDS ORDERED: AZITHROMYCIN IVPB 500 MG/250 ML BAG IVPB SCH (10:45)
[2021-07-07 11:11] LABS: CHLORIDE 106 mmol/L (98-107); SODIUM 142 mmol/L (136-145)
[2021-07-07 11:12] LABS: CALCIUM 9.1 mg/dL (8.5-10.1)
[2021-07-07 11:14] LABS: ANION GAP 9 MMOL/L (8-16); BLOOD UREA NITROGEN 14.8 mg/dL (7-18); CO2 27 mmol/L (21-32); GLUCOSE,RANDOM 113 mg/dL (74-106); MAGNESIUM 2.3 mg/dL (1.8-2.4)
[2021-07-07 11:16] LABS: CREATININE 0.9 mg/dL (0.55-1.3)
[2021-07-07] MEDS ORDERED: ALBUTEROL SO4 2.5/IPRATROPIUM 0.5 INH SOL 3 ML VIAL.NEB. NEB PRN (13:22)
[2021-07-07] MEDS: RIVAROXABAN 20 MG TABLET PO SCH (18:43)
[2021-07-08] MEDS ORDERED: FUROSEMIDE 40 MG TABLET (FP) ONE (12:25)
[2021-07-08] MEDS ORDERED: POTASSIUM CHLORIDE TABS 20 MEQ TABLET.ER (FP) PO ONE (12:26)
[2021-07-08] MEDS: POTASSIUM CHLORIDE TABS 20 MEQ TABLET.ER (FP) PO SCH (12:56)
[2021-07-08] MEDS: FUROSEMIDE 40 MG TABLET (FP) PO SCH (12:56)
[2021-07-08] MEDS ORDERED: ACETAMINOPHEN 325 MG TABLET (FP) ONE (21:07)
[2021-07-08] MEDS: RIVAROXABAN 20 MG TABLET PO SCH (21:58)
[2021-07-08] MEDS: ACETAMINOPHEN 325 MG TABLET (FP) PO PRN (21:58)
[2021-07-09] MEDS: POTASSIUM CHLORIDE TABS 20 MEQ TABLET.ER (FP) PO SCH (10:49)
[2021-07-09] MEDS: FUROSEMIDE 40 MG TABLET (FP) PO SCH (10:49)
[2021-07-09] MEDS: RIVAROXABAN 20 MG TABLET PO SCH (17:47)
[2021-07-10] MEDS: ACETAMINOPHEN 325 MG TABLET (FP) PO PRN ×2 (06:06→21:42)
[2021-07-10] MEDS ORDERED: PT OWN MED DRAWER 7, Y5N ONE (10:00)
[2021-07-10] MEDS: FUROSEMIDE 40 MG TABLET (FP) PO SCH (10:02)
[2021-07-10] MEDS: POTASSIUM CHLORIDE TABS 20 MEQ TABLET.ER (FP) PO SCH (10:02)
[2021-07-10] MEDS: RIVAROXABAN 20 MG TABLET PO SCH (17:06)
[2021-07-11] MEDS: POTASSIUM CHLORIDE TABS 20 MEQ TABLET.ER (FP) PO SCH (10:14)
[2021-07-11] MEDS: FUROSEMIDE 40 MG TABLET (FP) PO SCH (10:15)
[2021-07-11] MEDS: RIVAROXABAN 20 MG TABLET PO SCH (17:32)
[2021-07-11] MEDS: ACETAMINOPHEN 325 MG TABLET (FP) PO PRN (22:06)
[2021-07-12] MEDS: ACETAMINOPHEN 325 MG TABLET (FP) PO PRN ×2 (08:08→17:26)
[2021-07-12] MEDS ORDERED: guaiFENesin 200 MG/10 ML 10 ML UNIT-DOSE CUPS PO PRN (09:24)
[2021-07-12] MEDS: FUROSEMIDE 40 MG TABLET (FP) PO SCH (10:24)
[2021-07-12] MEDS: POTASSIUM CHLORIDE TABS 20 MEQ TABLET.ER (FP) PO SCH (10:24)
[2021-07-12] MEDS: RIVAROXABAN 20 MG TABLET PO SCH (17:27)
[2021-07-12] MEDS: LIDOCAINE 5% TOPICAL PATCH TP SCH (21:29)
[2021-07-12] MEDS: LIDOCAINE PATCH REMOVAL MC SCH (21:30)
[2021-07-13] MEDS: ACETAMINOPHEN 325 MG TABLET (FP) PO PRN ×2 (05:53→21:57)
[2021-07-13] MEDS: LIDOCAINE 5% TOPICAL PATCH TP SCH (10:13)
[2021-07-13] MEDS: FUROSEMIDE 40 MG TABLET (FP) PO SCH (10:14)
[2021-07-13] MEDS: POTASSIUM CHLORIDE TABS 20 MEQ TABLET.ER (FP) PO SCH (10:14)
[2021-07-13] MEDS: RIVAROXABAN 20 MG TABLET PO SCH (17:42)
[2021-07-13] MEDS: LIDOCAINE PATCH REMOVAL MC SCH (21:54)
[2021-07-14] MEDS: LIDOCAINE 5% TOPICAL PATCH TP SCH (10:06)
[2021-07-14] MEDS: ACETAMINOPHEN 325 MG TABLET (FP) PO PRN ×2 (10:06→21:24)
[2021-07-14] MEDS: POTASSIUM CHLORIDE TABS 20 MEQ TABLET.ER (FP) PO SCH (10:07)
[2021-07-14] MEDS: FUROSEMIDE 40 MG TABLET (FP) PO SCH (10:07)
[2021-07-14] MEDS: RIVAROXABAN 20 MG TABLET PO SCH (17:44)
[2021-07-14] MEDS: LIDOCAINE PATCH REMOVAL MC SCH (21:29)
[2021-07-15 05:53] VITALS: BP 133/60; PULSE 72; TEMP 97.7
[2021-07-15] MEDS: ACETAMINOPHEN 325 MG TABLET (FP) PO PRN (06:09)
== END 2021-07-15 11:07 | disposition home or self-care (01) | DRG 194 ==
LOC: JER 14:12 → INTOOBSV 18:32 → JERBED 18:32 → OBSVTOIN 07-07 11:16 → J4S 07-08 21:35
PROVIDERS: ATTEND Internal Medicine
DX: J18.9 Pneumonia, unspecified organism (principal); I50.32 Chronic diastolic (congestive) heart failure; I48.91 Unspecified atrial fibrillation; I11.0 Hypertensive heart disease with heart failure; E66.9 Obesity, unspecified; Z68.31 Body mass index [BMI] 31.0-31.9, adult; I25.10 Atherosclerotic heart disease of native coronary artery without angina pectoris; E78.5 Hyperlipidemia, unspecified; I10 Essential (primary) hypertension; R91.8 Other nonspecific abnormal finding of lung field
CPT/HCPCS: 36415; 71045-TC-FY; 71275-TC; 74174-TC; 80048; 80053; 82550; 83735; 84439; 84443; 84484; 85025; 85610; 85730; 93005; 93010; 97116-GP; 97161-GP; 99285-25; C9803; G0378; Q9967; U0003; U0005

== ENCOUNTER 2023-03-05 14:26 | Emergency (ER) | payer BC, OTHER ==
[2023-03-05 14:50] VITALS: RESP 20; TEMP 98; BMI 33.0
[2023-03-05 15:28] LABS: BASO % 0.5 % (0-2.0); EOS % 0.5 % (0-4.5); HEMATOCRIT 41.8 % (32.4-45.2); HEMOGLOBIN 13.8 GM/dL (10.7-15.3); LYMPH % 26.8 % (8-40); MCH 30.7 pg (25.7-33.7); MCHC 32.9 g/dl (32.0-36.0); MEAN CELL VOLUME 93.2 fl (80-96); MEAN PLT VOLUME 7.6 fl (7.5-11.1); MONO % 8.7 % (3.8-10.2); NEUT % 63.5 % (42.8-82.8); PLATELET COUNT 226 10^3/uL (134-434); RBC 4.49 M/mm3 (3.60-5.2); RDW 12.6 % (11.6-15.6); WHITE BLOOD COUNT 9.2 K/mm3 (4.0-10.0)
[2023-03-05 15:41] LABS: INR 1.38 (0.83-1.09)
[2023-03-05 15:44] LABS: ACTIVATED PTT 33.5 SECONDS (25.2-36.5)
[2023-03-05 16:06] LABS: POTASSIUM 5.1 mmol/L (3.5-5.1)
[2023-03-05 16:08] LABS: CALCIUM 9.1 mg/dL (8.5-10.1)
[2023-03-05 16:09] LABS: ALBUMIN 3.1 g/dl (3.4-5.0); BLOOD UREA NITROGEN 16.5 mg/dL (7-18)
[2023-03-05 16:12] LABS: CREATININE 0.5 mg/dL (0.55-1.3)
[2023-03-05 16:13] LABS: BILIRUBIN,TOTAL 0.4 mg/dL (0.2-1)
[2023-03-05 16:14] LABS: TOT PROT 6.8 g/dl (6.4-8.2)
[2023-03-05 17:31] LABS: EPI CELLS 8 /uL (0-25.1); HYALINE CASTS 0 /uL (0-3.1); PH,URINE >= 9.0 (5.0-8.0); URINE APPEARANCE CLEAR; URINE BACTERIA 28 /uL (0-1359); URINE BILIRUBIN NEGATIVE (NEGATIVE); URINE COLOR YELLOW; URINE GLUCOSE (UA) NEGATIVE (NEGATIVE); URINE KETONE NEGATIVE (NEGATIVE); URINE LEUK ESTERASE TRACE (NEGATIVE); URINE NITRITE NEGATIVE (NEGATIVE); URINE PROTEIN NEGATIVE (NEGATIVE); URINE RBC 671 /uL (0-23.9); URINE UROBILINOGEN 0.2 mg/dL (0.2-1.0); URINE WBC 14 /uL (0-25.8)
[2023-03-05] MEDS ORDERED: SULFAMETHOXAZOLE/TRIMETHOPRIM 800MG/160MG D.S. TABLET PO ONE (18:13)
[2023-03-05] MEDS ORDERED: SULFAMETHOXAZOLE/TRIMETHOPRIM 800MG/160MG D.S. TABLET ONE (18:18)
[2023-03-05 23:43] VITALS: BP 110/55; PULSE 62
== END 2023-03-06 03:35 | disposition home or self-care (01) ==
LOC: JER 14:26
DX: N30.01 Acute cystitis with hematuria (principal)
CPT/HCPCS: 36415; 80053; 81003; 82272; 85025; 85610; 85730; 86850; 86900; 86901; 87086; 99283-25

== ENCOUNTER 2024-03-02 01:39 | Inpatient (IN) | payer BC ==
[2024-03-02] MEDS: SODIUM CHLORIDE 0.9% 1000 ML INFUS.BAG IV STA (02:29)
[2024-03-02 02:40] LABS: HEMATOCRIT 44.4 % (32.4-45.2); HEMOGLOBIN 14.4 GM/dL (10.7-15.3); MCH 30.9 pg (25.7-33.7); MCHC 32.5 g/dl (32.0-36.0); MEAN CELL VOLUME 95.2 fl (80-96); MEAN PLT VOLUME 7.6 fl (7.5-11.1); PLATELET COUNT 299 10^3/uL (134-434); RBC 4.66 M/mm3 (3.60-5.2); RDW 13.4 % (11.6-15.6); WHITE BLOOD COUNT 17.4 K/mm3 (4.0-10.0)
[2024-03-02 02:41] LABS: VENOUS BASE EXCESS -1.4 mmol/L (-2-2); VENOUS O2 SATURATION 83.6 % (70-80)
[2024-03-02 02:42] LABS: VENOUS PCO2 90.6 mmHg (38-52)
[2024-03-02 02:43] LABS: VENOUS PH 7.148 (7.310-7.410)
[2024-03-02 02:48] LABS: INR 1.54 (0.83-1.09); PROTHROMBIN TIME (PATIENT) 17.2 SEC (9.7-13.0)
[2024-03-02 02:51] LABS: ACTIVATED PTT 33.3 SECONDS (25.2-36.5)
[2024-03-02 03:00] LABS: POTASSIUM 5.3 mmol/L (3.5-5.1)
[2024-03-02 03:03] LABS: ALBUMIN 2.7 g/dl (3.4-5.0); BLOOD UREA NITROGEN 44.9 mg/dL (7-18)
[2024-03-02 03:06] LABS: CREATININE 1.7 mg/dL (0.55-1.3)
[2024-03-02 03:07] LABS: BILIRUBIN,TOTAL 1.4 mg/dL (0.2-1); TOT PROT 7.1 g/dl (6.4-8.2)
[2024-03-02 03:15] LABS: ANISOCYTOSIS 0; HELMET CELLS 0; HOWELL-JOLLY BODIES 0; MACROCYTOSIS 0; OVALOCYTE 0; ROULEAU 0; SICKELED CELLS 0; TARGET CELLS 0; TEAR DROP CELLS 0; TOXIC GRANULATION 0
[2024-03-02] MEDS ORDERED: NOREPINEPHRINE BITARTRATE 4 MG/4 ML ML IV ONE ×2 (04:09→06:24)
[2024-03-02] MEDS: NOREPINEPHRINE BITARTRATE 4,000 MCG in DEXTROSE 5%-WATER - 496 ML IV SCH (04:16)
[2024-03-02] MEDS ORDERED: MEROPENEM 1 GM VIAL (RESTRICTED TO ID) IVPB ONE (05:01)
[2024-03-02] MEDS ORDERED: VANCOMYCIN 1 GRAM (PRE-DOCKED) 1,000 MG/250 ML BAG IVPB ONE (05:04)
[2024-03-02] MEDS: MEROPENEM 1 GM in DEXTROSE 5%-WATER 100 ML IVPB ONE (05:06)
[2024-03-02] MEDS ORDERED: HYDROCORTISONE SOD SUCCINATE 100 MG/2 ML VIAL ONE (05:25)
[2024-03-02] MEDS ORDERED: ACETAMINOPHEN INJECTION 100 ML IVPB ONE (05:30)
[2024-03-02] MEDS: ACETAMINOPHEN 1000 MG/100 ML BAG IVPB ONE (05:32)
[2024-03-02] MEDS: HYDROCORTISONE SOD SUCCINATE 100 MG/2 ML VIAL IVPUSH ONE (05:32)
[2024-03-02] MEDS: VANCOMYCIN 1,000 MG in DEXTROSE 5%-WATER - 250 ML IVPB ONE (05:37)
[2024-03-02] MEDS: VASopressin 40 UNITS/100 ML BAG IV SCH ×2 (05:59→06:38)
[2024-03-02] MEDS ORDERED: ETOMIDATE 20 MG/10 ML VIAL IVPUSH ONE (06:04)
[2024-03-02] MEDS ORDERED: MIDAZOLAM IN 0.9 % SOD.CHLORID 1 MG/1 ML PLAST..BAG ONE (06:17)
[2024-03-02] MEDS: ETOMIDATE 40 MG/20 ML VIAL IVPUSH ONE (06:20)
[2024-03-02] MEDS: MIDAZOLAM 100 MG in SODIUM CHLORIDE 100 ML IVPB SCH (06:30)
[2024-03-02] MEDS: AMIODARONE HCL 150 MG/3 ML VIAL IVPUSH ONE (06:44)
[2024-03-02] MEDS ORDERED: MIDAZOLAM IN 0.9 % SOD.CHLORID 100 MG/100 ML PLAST..BAG IVPB SCH (07:24)
[2024-03-02 08:46] LABS: EPI CELLS 15 /uL (0-25.1); HYALINE CASTS 0 /uL (0-3.1); PH,URINE 5.5 (5.0-8.0); URINE APPEARANCE TURBID; URINE BACTERIA 2516 /uL (0-1359); URINE BILIRUBIN 1+ (NEGATIVE); URINE COLOR ORANGE; URINE GLUCOSE (UA) NEGATIVE (NEGATIVE); URINE KETONE NEGATIVE (NEGATIVE); URINE LEUK ESTERASE 3+ (NEGATIVE); URINE NITRITE NEGATIVE (NEGATIVE); URINE PROTEIN 3+ (NEGATIVE); URINE RBC 4 /uL (0-23.9); URINE WBC 44 /uL (0-25.8)
[2024-03-02 09:00] LABS: BILIRUBIN,DIRECT 0.9 mg/dL (0.0-0.2)
[2024-03-02] MEDS ORDERED: PIPERACILLIN/TAZOB 3.375 GM 3.375 GM in DEXTROSE 5%-WATER - 50 ML IVPB SCH (09:00)
[2024-03-02] MEDS: SODIUM CHLORIDE 0.9% 500 ML INFUS.BAG IV ONE (10:36)
[2024-03-02] MEDS: PROPOFOL 1,000,000 MCG/100 ML VIAL IVPB SCH (10:42)
[2024-03-02] MEDS: FAMOTIDINE 20 MG/50 ML IVPB 20 MG/50 ML MG IVPB SCH (10:52)
[2024-03-02] MEDS ORDERED: FLUDROCORTISONE ACETATE 0.1 MG TABLET (FP) PO SCH ×2 (13:45)
[2024-03-02 14:33] LABS: ARTERIAL BLD GAS O2 SATURATION 98.2 % (95-98); ARTERIAL BLOOD GAS BASE EXCESS -2.4 mmol/L (-2-2); ARTERIAL BLOOD GAS PO2 103.4 mmHg (80-100); ARTERIAL BLOOD GAS pH 7.479 (7.350-7.450)
[2024-03-02] MEDS: NOREPINEPHRINE 0.9 % NACL 8 MG/250 ML BAG IVPB SCH (14:57)
[2024-03-02] MEDS: HYDROCORTISONE SOD SUCCINATE 100 MG/2 ML VIAL IVPB SCH (14:59)
[2024-03-02] MEDS: HEPARIN NA (PORCINE) 5,000 UNITS/ML 1ML VIAL SQ SCH (14:59)
[2024-03-02] MEDS: MUPIROCIN 2% TOPICAL OINTMENT FOR DECOLONIZATION NS SCH (14:59)
[2024-03-02] MEDS: METOPROLOL TARTRATE 5 MG/5 ML VIAL IVPUSH ONE (16:10)
[2024-03-02] MEDS: MEROPENEM 1 GM in DEXTROSE 5%-WATER 100 ML IVPB SCH (17:29)
[2024-03-02] MEDS: FLUDROCORTISONE ACETATE 0.1 MG TABLET (FP) PO SCH (17:29)
[2024-03-02] MEDS: SODIUM CHLORIDE 1,000 ML IV SCH (18:25)
[2024-03-02] MEDS: CHLORHEXIDINE GLUCONATE 4% CLEANSER FOR DECOLONIZATION TP SCH (21:05)
[2024-03-02] MEDS: DEXMEDETOMIDINE PREMIX 400 MCG/100 ML BAG IVPB SCH (22:16)
[2024-03-03 07:12] LABS: BASO % 0.1 % (0-2.0); HEMATOCRIT 36.9 % (32.4-45.2); HEMOGLOBIN 12.2 GM/dL (10.7-15.3); LYMPH % 5.9 % (8-40); MCHC 33.1 g/dl (32.0-36.0); MEAN CELL VOLUME 93.7 fl (80-96); MEAN PLT VOLUME 7.9 fl (7.5-11.1); MONO % 6.3 % (3.8-10.2); NEUT % 86.7 % (42.8-82.8); PLATELET COUNT 204 10^3/uL (134-434); RBC 3.94 M/mm3 (3.60-5.2); WHITE BLOOD COUNT 14.2 K/mm3 (4.0-10.0)
[2024-03-03 07:31] LABS: POTASSIUM 3.5 mmol/L (3.5-5.1)
[2024-03-03 07:35] LABS: BLOOD UREA NITROGEN 43.4 mg/dL (7-18); MAGNESIUM 1.9 mg/dL (1.8-2.4)
[2024-03-03 07:38] LABS: CREATININE 1.2 mg/dL (0.55-1.3)
[2024-03-03 07:39] LABS: BILIRUBIN,TOTAL 0.9 mg/dL (0.2-1); PHOSPHOROUS 2.3 mg/dL (2.5-4.9)
[2024-03-03 07:40] LABS: ALBUMIN 1.9 g/dl (3.4-5.0); CALCIUM 7.6 mg/dL (8.5-10.1)
[2024-03-03] MEDS: FENTANYL IVPB 500 MCG/100 ML BAG IVPB SCH (09:47)
[2024-03-03] MEDS: FLUDROCORTISONE ACETATE 0.1 MG TABLET (FP) PO SCH (09:47)
[2024-03-03] MEDS: RIVAROXABAN 20 MG TABLET PO SCH (09:49)
[2024-03-03] MEDS: FENTANYL NS IVPB 500 MCG/100 ML BAG IVPB SCH (09:50)
[2024-03-03] MEDS: POLYETHYLENE GLYCOL (HEALTHYLAX) 3350 17 GM PACKET PO SCH (10:13)
[2024-03-03] MEDS: HYDROCORTISONE SOD SUCCINATE 100 MG/2 ML VIAL IVPB SCH (17:21)
[2024-03-03] MEDS: MEROPENEM 1 GM in DEXTROSE 5%-WATER 100 ML IVPB SCH (17:22)
[2024-03-03] MEDS ORDERED: RIVAROXABAN 20 MG TABLET PO SCH (18:00)
[2024-03-03] MEDS: RIVAROXABAN 15 MG TABLET PO SCH (18:26)
[2024-03-03] MEDS: SENNOSIDES 8.6MG TABLET (FP) PO SCH (21:41)
[2024-03-04] MEDS ORDERED: DEXMEDETOMIDINE PREMIX 400 MCG/100 ML BAG IVPB ONE (06:20)
[2024-03-04 06:38] LABS: ARTERIAL BLOOD GAS BASE EXCESS 0.8 mmol/L (-2-2); ARTERIAL BLOOD GAS PO2 79.5 mmHg (80-100); ARTERIAL BLOOD GAS pH 7.523 (7.350-7.450)
[2024-03-04 06:40] LABS: VENT MODE A/C; VENT RATE 20
[2024-03-04] MEDS: DEXMEDETOMIDINE PREMIX 400 MCG/100 ML BAG IVPB SCH (08:00)
[2024-03-04 08:03] LABS: HEMOGLOBIN 12.9 GM/dL (10.7-15.3); LYMPH % 8.1 % (8-40); MCH 30.9 pg (25.7-33.7); MCHC 33.9 g/dl (32.0-36.0); MEAN CELL VOLUME 91.2 fl (80-96); MEAN PLT VOLUME 7.8 fl (7.5-11.1); MONO % 8.3 % (3.8-10.2); NEUT % 83.6 % (42.8-82.8); PLATELET COUNT 199 10^3/uL (134-434); RBC 4.17 M/mm3 (3.60-5.2); RDW 13.1 % (11.6-15.6); WHITE BLOOD COUNT 13.7 K/mm3 (4.0-10.0)
[2024-03-04 08:05] LABS: POTASSIUM 3.7 mmol/L (3.5-5.1)
[2024-03-04 08:18] LABS: BLOOD UREA NITROGEN 37.5 mg/dL (7-18)
[2024-03-04 08:19] LABS: ALBUMIN 1.9 g/dl (3.4-5.0); CALCIUM 7.6 mg/dL (8.5-10.1); MAGNESIUM 1.8 mg/dL (1.8-2.4)
[2024-03-04 08:22] LABS: BILIRUBIN,TOTAL 0.8 mg/dL (0.2-1); PHOSPHOROUS 1.5 mg/dL (2.5-4.9); TOT PROT 5.2 g/dl (6.4-8.2)
[2024-03-04 08:57] LABS: ANISOCYTOSIS 2+; MACROCYTOSIS 0; OVALOCYTE 1+
[2024-03-04] MEDS: POTASSIUM PHOSPHATE 15 MM in SODIUM CHLORIDE 100 ML IVPB ONE (16:23)
[2024-03-04 17:00] LABS: ARTERIAL BLOOD GAS BASE EXCESS -0.6 mmol/L (-2-2); ARTERIAL BLOOD GAS PO2 104.7 mmHg (80-100); ARTERIAL BLOOD GAS pH 7.433 (7.350-7.450)
[2024-03-04 17:04] LABS: VENT RATE 12
[2024-03-04 17:11] LABS: VENT MODE PSV
[2024-03-05 05:52] LABS: ARTERIAL BLD GAS O2 SATURATION 96.6 % (95-98); ARTERIAL BLOOD GAS pH 7.348 (7.350-7.450)
[2024-03-05 07:18] LABS: BASO % 0.1 % (0-2.0); HEMATOCRIT 35.7 % (32.4-45.2); HEMOGLOBIN 12.2 GM/dL (10.7-15.3); LYMPH % 12.5 % (8-40); MCH 31.4 pg (25.7-33.7); MCHC 34.2 g/dl (32.0-36.0); MEAN CELL VOLUME 91.8 fl (80-96); MONO % 7.3 % (3.8-10.2); NEUT % 80.1 % (42.8-82.8); PLATELET COUNT 149 10^3/uL (134-434); RBC 3.89 M/mm3 (3.60-5.2); RDW 13.1 % (11.6-15.6); WHITE BLOOD COUNT 10.1 K/mm3 (4.0-10.0)
[2024-03-05 07:43] LABS: CALCIUM 8.2 mg/dL (8.5-10.1)
[2024-03-05 07:44] LABS: ALBUMIN 2.1 g/dl (3.4-5.0); BLOOD UREA NITROGEN 37.3 mg/dL (7-18); MAGNESIUM 2.1 mg/dL (1.8-2.4)
[2024-03-05 07:47] LABS: CREATININE 0.8 mg/dL (0.55-1.3)
[2024-03-05 07:48] LABS: BILIRUBIN,TOTAL 0.4 mg/dL (0.2-1); TOT PROT 5.2 g/dl (6.4-8.2)
[2024-03-05] MEDS: METOPROLOL TARTRATE 5 MG/5 ML VIAL IVPUSH ONE ×2 (09:28→18:48)
[2024-03-05] MEDS: metoPROLOL SUCCINATE 25 MG TAB.SR.24H (FP) PO SCH ×3 (09:29→11:27)
[2024-03-05] MEDS ORDERED: metoPROLOL SUCCINATE 25 MG TAB.SR.24H (FP) PO SCH (10:00)
[2024-03-05 14:05] VITALS: BMI 35.1
[2024-03-05] MEDS: HYDROCORTISONE SOD SUCCINATE 100 MG/2 ML VIAL IVPB SCH (21:27)
[2024-03-06 07:37] LABS: HEMATOCRIT 41.2 % (32.4-45.2); HEMOGLOBIN 13.4 GM/dL (10.7-15.3); MCH 30.3 pg (25.7-33.7); MCHC 32.5 g/dl (32.0-36.0); MEAN CELL VOLUME 93.4 fl (80-96); PLATELET COUNT 189 10^3/uL (134-434); RBC 4.41 M/mm3 (3.60-5.2); RDW 13.7 % (11.6-15.6); WHITE BLOOD COUNT 14.4 K/mm3 (4.0-10.0)
[2024-03-06 07:40] LABS: CALCIUM 8.8 mg/dL (8.5-10.1)
[2024-03-06 07:41] LABS: MAGNESIUM 2.3 mg/dL (1.8-2.4)
[2024-03-06 07:44] LABS: CREATININE 0.9 mg/dL (0.55-1.3); PHOSPHOROUS 3.8 mg/dL (2.5-4.9)
[2024-03-06 07:45] LABS: BILIRUBIN,TOTAL 0.6 mg/dL (0.2-1); TOT PROT 6.4 g/dl (6.4-8.2)
[2024-03-06 08:01] LABS: ALBUMIN 2.6 g/dl (3.4-5.0)
[2024-03-06 09:39] LABS: ANISOCYTOSIS 0; MACROCYTOSIS 0
[2024-03-06 09:41] LABS: PLATELET ESTIMATE ADEQUATE
[2024-03-06] MEDS: FLUDROCORTISONE ACETATE 0.1 MG TABLET (FP) PO SCH (10:05)
[2024-03-06 15:17] LABS: HEMOGLOBIN 14.3 GM/dL (10.7-15.3); MCH 30.2 pg (25.7-33.7); MCHC 32.5 g/dl (32.0-36.0); MEAN PLT VOLUME 7.7 fl (7.5-11.1); PLATELET COUNT 183 10^3/uL (134-434); RBC 4.73 M/mm3 (3.60-5.2); RDW 13.4 % (11.6-15.6); WHITE BLOOD COUNT 13.6 K/mm3 (4.0-10.0)
[2024-03-06] MEDS: RIVAROXABAN 15 MG TABLET PO SCH (17:31)
[2024-03-07 07:53] LABS: HEMATOCRIT 41.4 % (32.4-45.2); HEMOGLOBIN 13.5 GM/dL (10.7-15.3); MCH 30.6 pg (25.7-33.7); MCHC 32.7 g/dl (32.0-36.0); MEAN CELL VOLUME 93.8 fl (80-96); RBC 4.42 M/mm3 (3.60-5.2); RDW 13.4 % (11.6-15.6); WHITE BLOOD COUNT 15.7 K/mm3 (4.0-10.0)
[2024-03-07 08:07] LABS: POTASSIUM 5.5 mmol/L (3.5-5.1)
[2024-03-07 08:11] LABS: BLOOD UREA NITROGEN 27.9 mg/dL (7-18)
[2024-03-07 08:12] LABS: ALBUMIN 2.6 g/dl (3.4-5.0)
[2024-03-07 08:14] LABS: CREATININE 0.6 mg/dL (0.55-1.3)
[2024-03-07 08:16] LABS: TOT PROT 6.4 g/dl (6.4-8.2)
[2024-03-07 08:17] LABS: BILIRUBIN,TOTAL 0.5 mg/dL (0.2-1)
[2024-03-07] MEDS ORDERED: MUPIROCIN 2% TOPICAL OINTMENT FOR DECOLONIZATION NS SCH (10:00)
[2024-03-07] MEDS: FAMOTIDINE 20 MG/50 ML IVPB 20 MG/50 ML MG IVPB SCH (10:26)
[2024-03-07] MEDS: MEROPENEM 1 GM in DEXTROSE 5%-WATER 100 ML IVPB SCH (10:26)
[2024-03-07] MEDS: metoPROLOL SUCCINATE 25 MG TAB.SR.24H (FP) PO SCH (10:27)
[2024-03-07] MEDS: POLYETHYLENE GLYCOL (HEALTHYLAX) 3350 17 GM PACKET PO SCH (10:27)
[2024-03-07] MEDS: FUROSEMIDE 40 MG/4 ML INJECTABLE VIAL IVPUSH ONE (13:50)
[2024-03-07 15:32] LABS: POTASSIUM 4.6 mmol/L (3.5-5.1)
[2024-03-07 15:33] LABS: CALCIUM 8.8 mg/dL (8.5-10.1)
[2024-03-07 15:34] LABS: BLOOD UREA NITROGEN 26.3 mg/dL (7-18)
[2024-03-07 15:37] LABS: CREATININE 0.6 mg/dL (0.55-1.3)
[2024-03-07] MEDS: SENNOSIDES 8.6MG TABLET (FP) PO SCH (21:37)
[2024-03-07] MEDS ORDERED: CHLORHEXIDINE GLUCONATE 4% CLEANSER FOR DECOLONIZATION TP SCH (22:00)
[2024-03-08] MEDS ORDERED: MEROPENEM 1 GM VIAL (RESTRICTED TO ID) IVPB ONE ×2 (01:53→10:00)
[2024-03-08 07:54] LABS: HEMATOCRIT 37.8 % (32.4-45.2); HEMOGLOBIN 12.4 GM/dL (10.7-15.3); MCH 30.8 pg (25.7-33.7); MCHC 32.8 g/dl (32.0-36.0); MEAN PLT VOLUME 7.6 fl (7.5-11.1); PLATELET COUNT 196 10^3/uL (134-434); RBC 4.02 M/mm3 (3.60-5.2); RDW 12.4 % (11.6-15.6); WHITE BLOOD COUNT 16.5 K/mm3 (4.0-10.0)
[2024-03-08 08:13] LABS: POTASSIUM 4.1 mmol/L (3.5-5.1)
[2024-03-08 08:18] LABS: CALCIUM 8.8 mg/dL (8.5-10.1)
[2024-03-08 08:19] LABS: BLOOD UREA NITROGEN 23.3 mg/dL (7-18)
[2024-03-08 08:22] LABS: CREATININE 0.5 mg/dL (0.55-1.3)
[2024-03-09 07:44] LABS: HEMOGLOBIN 12.9 GM/dL (10.7-15.3); MCH 30.4 pg (25.7-33.7); MCHC 31.6 g/dl (32.0-36.0); MEAN CELL VOLUME 96.2 fl (80-96); MEAN PLT VOLUME 7.9 fl (7.5-11.1); PLATELET COUNT 178 10^3/uL (134-434); RBC 4.26 M/mm3 (3.60-5.2); RDW 13.5 % (11.6-15.6); WHITE BLOOD COUNT 15.4 K/mm3 (4.0-10.0)
[2024-03-09 07:55] LABS: POTASSIUM 4.4 mmol/L (3.5-5.1)
[2024-03-09 08:01] LABS: CALCIUM 8.8 mg/dL (8.5-10.1)
[2024-03-09 08:02] LABS: BLOOD UREA NITROGEN 20.8 mg/dL (7-18)
[2024-03-09 08:05] LABS: CREATININE 0.4 mg/dL (0.55-1.3)
[2024-03-09] MEDS: HYDROCORTISONE SOD SUCCINATE 100 MG/2 ML VIAL IVPB SCH (09:52)
[2024-03-09 16:08] LABS: LACTIC ACID 2.3 mmol/L (0.4-2.0)
[2024-03-09 16:11] LABS: ALBUMIN 2.4 g/dl (3.4-5.0)
[2024-03-09 16:14] LABS: BILIRUBIN,DIRECT 0.3 mg/dL (0.0-0.2)
[2024-03-09 16:16] LABS: BILIRUBIN,TOTAL 0.7 mg/dL (0.2-1); TOT PROT 5.7 g/dl (6.4-8.2)
[2024-03-09 18:24] LABS: ARTERIAL BLD GAS O2 SATURATION 98.9 % (95-98); ARTERIAL BLOOD GAS BASE EXCESS 7.1 mmol/L (-2-2); ARTERIAL BLOOD GAS pH 7.314 (7.350-7.450)
[2024-03-09 18:30] LABS: ALLENS TEST POSITIVE
[2024-03-10 03:02] LABS: ARTERIAL BLD GAS O2 SATURATION 99.5 % (95-98); ARTERIAL BLOOD GAS BASE EXCESS 10.4 mmol/L (-2-2); ARTERIAL BLOOD GAS PO2 196.2 mmHg (80-100); ARTERIAL BLOOD GAS pH 7.567 (7.350-7.450)
[2024-03-10 07:35] LABS: HEMATOCRIT 41.7 % (32.4-45.2); HEMOGLOBIN 13.2 GM/dL (10.7-15.3); MCH 30.5 pg (25.7-33.7); MCHC 31.8 g/dl (32.0-36.0); MEAN PLT VOLUME 7.8 fl (7.5-11.1); PLATELET COUNT 245 10^3/uL (134-434); RBC 4.35 M/mm3 (3.60-5.2); WHITE BLOOD COUNT 15.6 K/mm3 (4.0-10.0)
[2024-03-10 07:51] LABS: POTASSIUM 4.4 mmol/L (3.5-5.1)
[2024-03-10 07:54] LABS: ALBUMIN 2.7 g/dl (3.4-5.0); BLOOD UREA NITROGEN 21.9 mg/dL (7-18); CALCIUM 9.3 mg/dL (8.5-10.1); MAGNESIUM 2.2 mg/dL (1.8-2.4)
[2024-03-10 07:57] LABS: CREATININE 0.5 mg/dL (0.55-1.3)
[2024-03-10 07:58] LABS: PHOSPHOROUS 1.9 mg/dL (2.5-4.9)
[2024-03-10 07:59] LABS: BILIRUBIN,TOTAL 0.7 mg/dL (0.2-1); TOT PROT 6.3 g/dl (6.4-8.2)
[2024-03-10] MEDS: NAPH,MB-DB/K PH,MBDB POWDER PACKET PO ONE (10:01)
[2024-03-10] MEDS: ACETAMINOPHEN 1000 MG/100 ML BAG IVPB PRN (14:23)
[2024-03-10] MEDS: AMINO ACIDS 4.25%/D5W 1,000 ML IV SCH (14:24)
[2024-03-10 15:04] LABS: ARTERIAL BLD GAS O2 SATURATION 97.7 % (95-98); ARTERIAL BLOOD GAS BASE EXCESS 7.6 mmol/L (-2-2); ARTERIAL BLOOD GAS PO2 106.7 mmHg (80-100); ARTERIAL BLOOD GAS pH 7.381 (7.350-7.450)
[2024-03-10 21:09] LABS: ARTERIAL BLD GAS O2 SATURATION 96.4 % (95-98); ARTERIAL BLOOD GAS BASE EXCESS 11.1 mmol/L (-2-2); ARTERIAL BLOOD GAS PO2 69.7 mmHg (80-100)
[2024-03-10 21:10] LABS: ALLENS TEST POSITIVE; VENT MODE S/T; VENT RATE 15
[2024-03-10 21:12] LABS: ARTERIAL BLOOD GAS pH 7.607 (7.350-7.450)
[2024-03-11 07:49] LABS: POTASSIUM 4.1 mmol/L (3.5-5.1)
[2024-03-11 07:56] LABS: CALCIUM 8.9 mg/dL (8.5-10.1)
[2024-03-11 07:57] LABS: BLOOD UREA NITROGEN 23.1 mg/dL (7-18)
[2024-03-11 08:00] LABS: CREATININE 0.4 mg/dL (0.55-1.3)
[2024-03-11 08:13] LABS: HEMATOCRIT 39.9 % (32.4-45.2); HEMOGLOBIN 12.6 GM/dL (10.7-15.3); MCH 30.4 pg (25.7-33.7); MCHC 31.7 g/dl (32.0-36.0); MEAN PLT VOLUME 7.7 fl (7.5-11.1); PLATELET COUNT 233 10^3/uL (134-434); RBC 4.16 M/mm3 (3.60-5.2); WHITE BLOOD COUNT 11.8 K/mm3 (4.0-10.0)
[2024-03-11] MEDS: HYDROCORTISONE SOD SUCCINATE 100 MG/2 ML VIAL IVPB SCH (09:46)
[2024-03-11 15:20] LABS: ARTERIAL BLD GAS O2 SATURATION 96.8 % (95-98); ARTERIAL BLOOD GAS BASE EXCESS 8.9 mmol/L (-2-2); ARTERIAL BLOOD GAS PO2 92.6 mmHg (80-100); ARTERIAL BLOOD GAS pH 7.383 (7.350-7.450)
[2024-03-11 15:22] LABS: ALLENS TEST POSITIVE
[2024-03-12 07:51] LABS: BASO % 0.5 % (0-2.0); EOS % 0.5 % (0-4.5); HEMATOCRIT 39.3 % (32.4-45.2); HEMOGLOBIN 12.5 GM/dL (10.7-15.3); LYMPH % 12.6 % (8-40); MCH 30.4 pg (25.7-33.7); MCHC 31.7 g/dl (32.0-36.0); MEAN CELL VOLUME 95.7 fl (80-96); MEAN PLT VOLUME 7.8 fl (7.5-11.1); NEUT % 78.4 % (42.8-82.8); PLATELET COUNT 210 10^3/uL (134-434); WHITE BLOOD COUNT 11.4 K/mm3 (4.0-10.0)
[2024-03-12 08:11] LABS: POTASSIUM 3.9 mmol/L (3.5-5.1)
[2024-03-12 08:16] LABS: ALBUMIN 2.4 g/dl (3.4-5.0); CALCIUM 8.5 mg/dL (8.5-10.1); MAGNESIUM 1.9 mg/dL (1.8-2.4)
[2024-03-12 08:19] LABS: CREATININE 0.4 mg/dL (0.55-1.3)
[2024-03-12 08:20] LABS: PHOSPHOROUS 2.1 mg/dL (2.5-4.9); TOT PROT 5.4 g/dl (6.4-8.2)
[2024-03-12] MEDS: ALBUTEROL SO4 2.5/IPRATROPIUM 0.5 INH SOL 3 ML VIAL.NEB. NEB SCH (15:48)
[2024-03-13 08:51] LABS: HEMATOCRIT 37.9 % (32.4-45.2); HEMOGLOBIN 12.2 GM/dL (10.7-15.3); MCH 30.4 pg (25.7-33.7); MCHC 32.1 g/dl (32.0-36.0); MEAN CELL VOLUME 94.7 fl (80-96); MEAN PLT VOLUME 7.7 fl (7.5-11.1); PLATELET COUNT 180 10^3/uL (134-434); RDW 13.6 % (11.6-15.6); WHITE BLOOD COUNT 11.7 K/mm3 (4.0-10.0)
[2024-03-13 09:04] LABS: CALCIUM 8.5 mg/dL (8.5-10.1); POTASSIUM 3.8 mmol/L (3.5-5.1)
[2024-03-13 09:05] LABS: BLOOD UREA NITROGEN 23.7 mg/dL (7-18)
[2024-03-13 09:09] LABS: CREATININE 0.6 mg/dL (0.55-1.3)
[2024-03-13] MEDS: NAPH,MB-DB/K PH,MBDB POWDER PACKET PO ONE (16:13)
[2024-03-13 16:47] LABS: MAGNESIUM 1.9 mg/dL (1.8-2.4)
[2024-03-13 16:51] LABS: PHOSPHOROUS 2.1 mg/dL (2.5-4.9)
[2024-03-13] MEDS: FUROSEMIDE 40 MG/4 ML INJECTABLE VIAL IVPUSH ONE (17:05)
[2024-03-14 08:38] LABS: POTASSIUM 3.8 mmol/L (3.5-5.1)
[2024-03-14 08:39] LABS: CALCIUM 8.2 mg/dL (8.5-10.1); HEMATOCRIT 36.4 % (32.4-45.2); HEMOGLOBIN 11.9 GM/dL (10.7-15.3); MCH 30.7 pg (25.7-33.7); MCHC 32.6 g/dl (32.0-36.0); MEAN CELL VOLUME 94.1 fl (80-96); MEAN PLT VOLUME 8.2 fl (7.5-11.1); PLATELET COUNT 170 10^3/uL (134-434); RBC 3.87 M/mm3 (3.60-5.2); RDW 13.5 % (11.6-15.6); WHITE BLOOD COUNT 11.2 K/mm3 (4.0-10.0)
[2024-03-14 08:41] LABS: BLOOD UREA NITROGEN 16.3 mg/dL (7-18)
[2024-03-14 08:43] LABS: CREATININE 0.4 mg/dL (0.55-1.3)
[2024-03-14] MEDS: FUROSEMIDE 20 MG TABLET (FP) PO SCH (09:39)
[2024-03-14] MEDS: SODIUM CHLORIDE 250 ML IV STA (09:53)
[2024-03-14] MEDS ORDERED: FUROSEMIDE 40 MG/4 ML INJECTABLE VIAL IVPUSH SCH ×2 (10:00)
[2024-03-14 15:30] VITALS: RESP 18
[2024-03-14 17:17] VITALS: BP 96/57; PULSE 109; TEMP 98.6
== END 2024-03-14 17:15 | DRG 871 ==
LOC: JER 01:39 → JERBED 06:38 → JICU 08:07 → J4W 03-07 03:22
PROVIDERS: ADMIT Internal Medicine Pulmonary Disease; ATTEND Internal Medicine
PROC: 0BH17EZ Insertion of Endotracheal Airway into Trachea, Via Natural or Artificial Opening (ICD-10-PCS; principal; 2024-03-02)
PROC: 5A1945Z Respiratory Ventilation, 24-96 Consecutive Hours (ICD-10-PCS; 2024-03-02)
PROC: 05HM33Z Insertion of Infusion Device into Right Internal Jugular Vein, Percutaneous Approach (ICD-10-PCS; 2024-03-02)
PROC: B543ZZA Ultrasonography of Right Jugular Veins, Guidance (ICD-10-PCS; 2024-03-02)
PROC: 03HY32Z Insertion of Monitoring Device into Upper Artery, Percutaneous Approach (ICD-10-PCS; 2024-03-02)
DX: A41.89 Other specified sepsis (principal); G93.41 Metabolic encephalopathy; R65.21 Severe sepsis with septic shock; J96.01 Acute respiratory failure with hypoxia; J69.0 Pneumonitis due to inhalation of food and vomit; J96.02 Acute respiratory failure with hypercapnia; I24.89 Other forms of acute ischemic heart disease; I48.20 Chronic atrial fibrillation, unspecified; N17.9 Acute kidney failure, unspecified; J90 Pleural effusion, not elsewhere classified; I10 Essential (primary) hypertension; Z85.3 Personal history of malignant neoplasm of breast; E87.5 Hyperkalemia; I73.9 Peripheral vascular disease, unspecified
CPT/HCPCS: 0241U-QW; 36415; 36600; 70450-TC; 71045-TC-FY; 71250-TC; 76705-TC; 80048; 80053; 80076; 81003; 82140; 82248; 82570; 82803; 83605; 83735; 84100; 84300; 84484; 85025; 85027; 85610; 85730; 86850; 86900; 86901; 87040; 87070; 87077; 87086; 87186; 87205; 93005; 93010; 93306-TC; 94002; 94640; 94660; 97162-GP; 99285-25; J0131; J1644; J3490

== ENCOUNTER 2024-04-28 17:12 | Inpatient (IN) | payer OTHER ==
[2024-04-28 17:57] LABS: VENOUS BASE EXCESS 10.1 mmol/L (-2-2); VENOUS PH 7.324 (7.310-7.410)
[2024-04-28 17:58] LABS: VENOUS PCO2 75.6 mmHg (38-52)
[2024-04-28 18:03] LABS: HEMATOCRIT 30.8 % (32.4-45.2); HEMOGLOBIN 9.6 GM/dL (10.7-15.3); MCH 30.2 pg (25.7-33.7); MEAN CELL VOLUME 97.5 fl (80-96); MEAN PLT VOLUME 7.7 fl (7.5-11.1); PLATELET COUNT 187 10^3/uL (134-434); RBC 3.16 M/mm3 (3.60-5.2); RDW 16.6 % (11.6-15.6); WHITE BLOOD COUNT 16.9 K/mm3 (4.0-10.0)
[2024-04-28 18:12] LABS: INR 2.1 (0.83-1.09); PROTHROMBIN TIME (PATIENT) 23.2 SEC (9.7-13.0)
[2024-04-28 18:15] LABS: ACTIVATED PTT 35.6 SECONDS (25.2-36.5)
[2024-04-28 18:16] LABS: POTASSIUM 4.2 mmol/L (3.5-5.1)
[2024-04-28 18:18] LABS: ALBUMIN 1.9 g/dl (3.4-5.0); BLOOD UREA NITROGEN 27.8 mg/dL (7-18); CALCIUM 8.4 mg/dL (8.5-10.1)
[2024-04-28] MEDS: SODIUM CHLORIDE 0.9% 1000 ML INFUS.BAG IV STA (18:20)
[2024-04-28 18:22] LABS: CREATININE 1.3 mg/dL (0.55-1.3)
[2024-04-28 18:23] LABS: BILIRUBIN,TOTAL 1.8 mg/dL (0.2-1); TOT PROT 5.5 g/dl (6.4-8.2)
[2024-04-28 18:28] LABS: LACTIC ACID 2.4 mmol/L (0.4-2.0)
[2024-04-28] MEDS ORDERED: MEROPENEM 1 GM VIAL (RESTRICTED TO ID) IVPB ONE (18:34)
[2024-04-28] MEDS ORDERED: VANCOMYCIN 1 GRAM (PRE-DOCKED) 1,000 MG/250 ML BAG IVPB ONE (18:35)
[2024-04-28] MEDS ORDERED: PSEUDOEPHEDRINE HCL 60 MG TABLET ONE (18:52)
[2024-04-28] MEDS: MEROPENEM 1 GM in DEXTROSE 5%-WATER 100 ML IVPB ONE (18:57)
[2024-04-28 18:59] LABS: ANISOCYTOSIS 1+; MACROCYTOSIS 0
[2024-04-28] MEDS: VANCOMYCIN 1,000 MG in DEXTROSE 5%-WATER - 250 ML IVPB ONE (19:31)
[2024-04-28 19:45] LABS: HIV INTERPRETATION NEGATIVE (NEGATIVE)
[2024-04-28] MEDS: SODIUM CHLORIDE 0.9% 500 ML INFUS.BAG IV ONE (19:58)
[2024-04-28 20:09] LABS: ARTERIAL BLD GAS O2 SATURATION 97.2 % (95-98); ARTERIAL BLOOD GAS BASE EXCESS 8.9 mmol/L (-2-2); ARTERIAL BLOOD GAS PO2 103.3 mmHg (80-100)
[2024-04-28 20:11] LABS: ALLENS TEST POSITIVE
[2024-04-28] MEDS ORDERED: NOREPINEPHRINE 0.9 % NACL 8 MG/250 ML BAG IVPB ONE (21:41)
[2024-04-28] MEDS: NOREPINEPHRINE 0.9 % NACL 8 MG/250 ML BAG IVPB SCH (21:53)
[2024-04-28 22:49] LABS: EPI CELLS >36 /uL (0-25.1); HYALINE CASTS 18 /uL (0-3.1); PH,URINE 5.5 (5.0-8.0); URINE APPEARANCE TURBID; URINE BACTERIA 5131 /uL (0-1359); URINE BILIRUBIN 1+ (NEGATIVE); URINE COLOR DK YELLOW; URINE GLUCOSE (UA) NEGATIVE (NEGATIVE); URINE KETONE TRACE (NEGATIVE); URINE LEUK ESTERASE 3+ (NEGATIVE); URINE NITRITE NEGATIVE (NEGATIVE); URINE PROTEIN 3+ (NEGATIVE); URINE WBC 21779 /uL (0-25.8)
[2024-04-28] MEDS ORDERED: PANTOPRAZOLE SODIUM 40 MG VIAL ONE (22:54)
[2024-04-28] MEDS: PANTOPRAZOLE SODIUM 40 MG VIAL IVPUSH ONE (22:57)
[2024-04-28 23:29] LABS: YEAST REVIEW (NEGATIVE)
[2024-04-29] MEDS: HYDROCORTISONE SOD SUCCINATE 100 MG/2 ML VIAL IVPUSH SCH (03:15)
[2024-04-29] MEDS: MEROPENEM 1 GM in DEXTROSE 5%-WATER 100 ML IVPB SCH ×2 (03:16→17:22)
[2024-04-29] MEDS ORDERED: MEROPENEM 1 GM VIAL (RESTRICTED TO ID) IVPB ONE (03:25)
[2024-04-29] MEDS ORDERED: HYDROCORTISONE SOD SUCCINATE 100 MG/2 ML VIAL ONE (03:25)
[2024-04-29] MEDS: MUPIROCIN 2% TOPICAL OINTMENT FOR DECOLONIZATION NS SCH (04:07)
[2024-04-29] MEDS: AMIODARONE IN DEXTROSE,ISO-OSM 150 MG/100 ML BAG IVPB ONE (04:20)
[2024-04-29] MEDS: VASopressin 40 UNITS/100 ML BAG IV SCH (04:39)
[2024-04-29] MEDS: AMIODARONE IN DEXTROSE,ISO-OSM 360 MG/200 ML BAG IV SCH ×2 (04:40→09:49)
[2024-04-29 08:09] LABS: HEMATOCRIT 30.1 % (32.4-45.2); HEMOGLOBIN 9.2 GM/dL (10.7-15.3); MCH 30.1 pg (25.7-33.7); MCHC 30.7 g/dl (32.0-36.0); MEAN CELL VOLUME 98.1 fl (80-96); MEAN PLT VOLUME 7.5 fl (7.5-11.1); PLATELET COUNT 234 10^3/uL (134-434); RBC 3.07 M/mm3 (3.60-5.2); RDW 16.4 % (11.6-15.6); WHITE BLOOD COUNT 22.8 K/mm3 (4.0-10.0)
[2024-04-29 08:12] LABS: INR 1.47 (0.83-1.09); PROTHROMBIN TIME (PATIENT) 16.4 SEC (9.7-13.0)
[2024-04-29 08:14] LABS: ACTIVATED PTT 31.5 SECONDS (25.2-36.5)
[2024-04-29 08:20] LABS: POTASSIUM 3.9 mmol/L (3.5-5.1)
[2024-04-29 08:30] LABS: ALBUMIN 1.9 g/dl (3.4-5.0); BLOOD UREA NITROGEN 35.5 mg/dL (7-18); CALCIUM 7.8 mg/dL (8.5-10.1); MAGNESIUM 1.6 mg/dL (1.8-2.4)
[2024-04-29 08:35] LABS: TOT PROT 5.3 g/dl (6.4-8.2)
[2024-04-29 08:59] LABS: ANISOCYTOSIS 3+; MACROCYTOSIS 0
[2024-04-29] MEDS: PANTOPRAZOLE SODIUM 40 MG VIAL IVPUSH SCH (09:50)
[2024-04-29] MEDS: MAGNESIUM SULFATE IN WATER 2 GM/50 ML IVPB IVPB ONE (12:14)
[2024-04-29] MEDS: SODIUM CHLORIDE 1,000 ML IV SCH (15:11)
[2024-04-29] MEDS: VANCOMYCIN/WATER FOR INJ (PEG) 1,000 MG/200 ML BAG IVPB SCH (18:18)
[2024-04-29] MEDS: CHLORHEXIDINE GLUCONATE 4% CLEANSER FOR DECOLONIZATION TP SCH (21:44)
[2024-04-29] MEDS: INSULIN ASPART SLIDING SCALE (NOVOLOG) 1 VIAL SQ SCH (21:44)
[2024-04-30 07:25] LABS: HEMATOCRIT 29.6 % (32.4-45.2); HEMOGLOBIN 9.1 GM/dL (10.7-15.3); MCH 29.7 pg (25.7-33.7); MCHC 30.7 g/dl (32.0-36.0); MEAN CELL VOLUME 96.7 fl (80-96); MEAN PLT VOLUME 7.6 fl (7.5-11.1); PLATELET COUNT 184 10^3/uL (134-434); RBC 3.06 M/mm3 (3.60-5.2); WHITE BLOOD COUNT 16.9 K/mm3 (4.0-10.0)
[2024-04-30 07:42] LABS: POTASSIUM 3.5 mmol/L (3.5-5.1)
[2024-04-30 07:48] LABS: ALBUMIN 1.9 g/dl (3.4-5.0); BLOOD UREA NITROGEN 33.3 mg/dL (7-18); CALCIUM 8.1 mg/dL (8.5-10.1); MAGNESIUM 2.1 mg/dL (1.8-2.4)
[2024-04-30 07:51] LABS: CREATININE 0.9 mg/dL (0.55-1.3)
[2024-04-30 07:52] LABS: BILIRUBIN,TOTAL 0.4 mg/dL (0.2-1); PHOSPHOROUS 2.6 mg/dL (2.5-4.9); TOT PROT 5.4 g/dl (6.4-8.2)
[2024-04-30 08:47] LABS: ANISOCYTOSIS 0; MACROCYTOSIS 0
[2024-04-30 14:11] VITALS: BMI 35.3
[2024-04-30] MEDS: METOPROLOL TARTRATE 5 MG/5 ML VIAL IVPUSH ONE (14:53)
[2024-04-30] MEDS: RIVAROXABAN 20 MG TABLET PO SCH (17:55)
[2024-04-30] MEDS ORDERED: RIVAROXABAN 20 MG TABLET NGT SCH (18:00)
[2024-05-01 07:01] LABS: HEMATOCRIT 28.1 % (32.4-45.2); HEMOGLOBIN 8.7 GM/dL (10.7-15.3); MCH 30.1 pg (25.7-33.7); MCHC 31.1 g/dl (32.0-36.0); MEAN PLT VOLUME 7.7 fl (7.5-11.1); PLATELET COUNT 132 10^3/uL (134-434); RBC 2.89 M/mm3 (3.60-5.2); RDW 16.3 % (11.6-15.6); WHITE BLOOD COUNT 8.4 K/mm3 (4.0-10.0)
[2024-05-01 07:16] LABS: CHLORIDE 103 mmol/L (98-107); POTASSIUM 3.6 mmol/L (3.5-5.1); SODIUM 142 mmol/L (136-145)
[2024-05-01 07:21] LABS: CALCIUM 8.3 mg/dL (8.5-10.1)
[2024-05-01 07:22] LABS: ALBUMIN 1.8 g/dl (3.4-5.0); ANION GAP 3 mmol/L (4-13); BLOOD UREA NITROGEN 30.5 mg/dL (7-18); CO2 36 mmol/L (21-32); GLUCOSE,RANDOM 105 mg/dL (74-106); MAGNESIUM 2.1 mg/dL (1.8-2.4)
[2024-05-01 07:24] LABS: CREATININE 0.7 mg/dL (0.55-1.3); PHOSPHOROUS 2.8 mg/dL (2.5-4.9)
[2024-05-01 07:25] LABS: BILIRUBIN,TOTAL 0.3 mg/dL (0.2-1); SGOT/AST 12 U/L (15-37); SGPT/ALT < 6 U/L (13-61)
[2024-05-01 07:27] LABS: ALK PHOS 82 U/L (45-117)
[2024-05-01 09:09] LABS: ANISOCYTOSIS 2+; MACROCYTOSIS 0
[2024-05-01] MEDS: MIDODRINE HCL 5 MG TABLET PO SCH ×2 (09:31→15:11)
[2024-05-01] MEDS: PNEUMOC 20-VAL CONJ-DIP CRM/PF 0.5 ML SYRINGE IM ONE (11:42)
[2024-05-01] MEDS: MIDODRINE HCL 5 MG TABLET PO ONE (12:10)
[2024-05-01] MEDS: metoPROLOL SUCCINATE 25 MG TAB.SR.24H (FP) PO SCH (21:20)
[2024-05-01] MEDS: HYDROCORTISONE SOD SUCCINATE 100 MG/2 ML VIAL IVPUSH SCH (21:20)
[2024-05-01] MEDS: ASCORBIC ACID 500 MG TABLET (FP) PO SCH (21:21)
[2024-05-02 09:02] LABS: HEMATOCRIT 34.5 % (32.4-45.2); HEMOGLOBIN 10.5 GM/dL (10.7-15.3); MCH 29.6 pg (25.7-33.7); MCHC 30.4 g/dl (32.0-36.0); MEAN CELL VOLUME 97.4 fl (80-96); MEAN PLT VOLUME 7.8 fl (7.5-11.1); PLATELET COUNT 177 10^3/uL (134-434); RBC 3.54 M/mm3 (3.60-5.2); RDW 16.6 % (11.6-15.6); WHITE BLOOD COUNT 14.2 K/mm3 (4.0-10.0)
[2024-05-02 09:09] LABS: POTASSIUM 3.9 mmol/L (3.5-5.1)
[2024-05-02 09:12] LABS: ALBUMIN 2.1 g/dl (3.4-5.0); BLOOD UREA NITROGEN 35.8 mg/dL (7-18); MAGNESIUM 2.2 mg/dL (1.8-2.4)
[2024-05-02 09:15] LABS: CREATININE 0.8 mg/dL (0.55-1.3); PHOSPHOROUS 2.7 mg/dL (2.5-4.9)
[2024-05-02 09:16] LABS: BILIRUBIN,TOTAL 0.7 mg/dL (0.2-1)
[2024-05-02 09:17] LABS: TOT PROT 5.4 g/dl (6.4-8.2)
[2024-05-02] MEDS: FAMOTIDINE 20 MG TABLET PO SCH (10:12)
[2024-05-02] MEDS: FUROSEMIDE 40 MG/4 ML INJECTABLE VIAL IVPUSH ONE (10:27)
[2024-05-02] MEDS: ACETAMINOPHEN 325 MG TABLET (FP) PO ONE (10:37)
[2024-05-02 12:23] LABS: ARTERIAL BLD GAS O2 SATURATION 99.3 % (95-98); ARTERIAL BLOOD GAS BASE EXCESS 8.6 mmol/L (-2-2); ARTERIAL BLOOD GAS PO2 196.9 mmHg (80-100); ARTERIAL BLOOD GAS pH 7.421 (7.350-7.450)
[2024-05-02 12:25] LABS: ALLENS TEST POSITIVE
[2024-05-03 08:47] LABS: HEMATOCRIT 32.8 % (32.4-45.2); HEMOGLOBIN 10.5 GM/dL (10.7-15.3); MCH 30.5 pg (25.7-33.7); MEAN CELL VOLUME 95.3 fl (80-96); MEAN PLT VOLUME 7.8 fl (7.5-11.1); PLATELET COUNT 168 10^3/uL (134-434); RBC 3.45 M/mm3 (3.60-5.2); RDW 16.3 % (11.6-15.6); WHITE BLOOD COUNT 12.8 K/mm3 (4.0-10.0)
[2024-05-03 09:11] LABS: POTASSIUM 4.1 mmol/L (3.5-5.1)
[2024-05-03 09:14] LABS: CALCIUM 8.8 mg/dL (8.5-10.1)
[2024-05-03 09:15] LABS: BLOOD UREA NITROGEN 35.6 mg/dL (7-18)
[2024-05-03 09:18] LABS: CREATININE 0.8 mg/dL (0.55-1.3)
[2024-05-03 09:20] LABS: BILIRUBIN,TOTAL 0.4 mg/dL (0.2-1); TOT PROT 5.3 g/dl (6.4-8.2)
[2024-05-03] MEDS: metoPROLOL SUCCINATE 25 MG TAB.SR.24H (FP) PO SCH (09:44)
[2024-05-03] MEDS: MIDODRINE HCL 5 MG TABLET PO SCH (09:45)
[2024-05-03] MEDS: HYDROCORTISONE SOD SUCCINATE 100 MG/2 ML VIAL IVPB SCH (09:46)
[2024-05-03] MEDS: MEROPENEM 1 GM in DEXTROSE 5%-WATER 100 ML IVPB SCH (09:46)
[2024-05-03] MEDS: PANTOPRAZOLE SODIUM 40 MG VIAL IVPUSH SCH (09:47)
[2024-05-03] MEDS ORDERED: MUPIROCIN 2% TOPICAL OINTMENT FOR DECOLONIZATION NS SCH (10:00)
[2024-05-03] MEDS: FUROSEMIDE 40 MG/4 ML INJECTABLE VIAL IVPUSH ONE (12:13)
[2024-05-03] MEDS: INSULIN ASPART SLIDING SCALE (NOVOLOG) 1 VIAL SQ SCH (12:39)
[2024-05-03] MEDS: ACETAMINOPHEN 325 MG TABLET (FP) PO PRN (14:45)
[2024-05-03] MEDS: RIVAROXABAN 20 MG TABLET PO SCH (18:13)
[2024-05-03] MEDS: ACETAMINOPHEN 1000 MG/100 ML BAG IVPB ONE (20:29)
[2024-05-03] MEDS ORDERED: CHLORHEXIDINE GLUCONATE 4% CLEANSER FOR DECOLONIZATION TP SCH (22:00)
[2024-05-04] MEDS ORDERED: INSULIN ASPART SLIDING SCALE (NOVOLOG) 1 VIAL SQ SCH (11:00)
[2024-05-04] MEDS: ASCORBIC ACID 500 MG TABLET (FP) PO SCH (22:03)
[2024-05-04] MEDS: metoPROLOL SUCCINATE 25 MG TAB.SR.24H (FP) PO SCH (22:03)
[2024-05-04] MEDS: PANTOPRAZOLE SODIUM 40 MG VIAL IVPUSH SCH (22:04)
[2024-05-05] MEDS: MEROPENEM 1 GM in DEXTROSE 5%-WATER 100 ML IVPB SCH (02:58)
[2024-05-05] MEDS: FAMOTIDINE 20 MG TABLET PO SCH (10:12)
[2024-05-05] MEDS: MIDODRINE HCL 5 MG TABLET PO SCH (10:12)
[2024-05-05 11:07] LABS: BASO % 0.8 % (0-2.0); EOS % 0.6 % (0-4.5); HEMATOCRIT 36.8 % (32.4-45.2); HEMOGLOBIN 11.3 GM/dL (10.7-15.3); LYMPH % 24.6 % (8-40); MCH 29.2 pg (25.7-33.7); MCHC 30.6 g/dl (32.0-36.0); MEAN CELL VOLUME 95.4 fl (80-96); MEAN PLT VOLUME 8.3 fl (7.5-11.1); MONO % 4.6 % (3.8-10.2); NEUT % 69.4 % (42.8-82.8); PLATELET COUNT 252 10^3/uL (134-434); RBC 3.86 M/mm3 (3.60-5.2); RDW 15.9 % (11.6-15.6); WHITE BLOOD COUNT 13.6 K/mm3 (4.0-10.0)
[2024-05-05 11:20] LABS: CALCIUM 9.3 mg/dL (8.5-10.1)
[2024-05-05 11:21] LABS: BLOOD UREA NITROGEN 33.6 mg/dL (7-18); MAGNESIUM 2.2 mg/dL (1.8-2.4)
[2024-05-05 11:24] LABS: CREATININE 0.6 mg/dL (0.55-1.3); PHOSPHOROUS 2.5 mg/dL (2.5-4.9)
[2024-05-05] MEDS: FUROSEMIDE 40 MG/4 ML INJECTABLE VIAL IVPUSH SCH (13:55)
[2024-05-05] MEDS: RIVAROXABAN 20 MG TABLET PO SCH (17:55)
[2024-05-06] MEDS: ACETAMINOPHEN 1000 MG/100 ML BAG IVPB ONE (05:16)
[2024-05-06 11:07] LABS: BASO % 1.2 % (0-2.0); EOS % 0.6 % (0-4.5); HEMATOCRIT 36.1 % (32.4-45.2); HEMOGLOBIN 11.2 GM/dL (10.7-15.3); LYMPH % 31.4 % (8-40); MCH 29.8 pg (25.7-33.7); MEAN CELL VOLUME 95.9 fl (80-96); MEAN PLT VOLUME 8.5 fl (7.5-11.1); MONO % 3.2 % (3.8-10.2); NEUT % 63.6 % (42.8-82.8); PLATELET COUNT 259 10^3/uL (134-434); RBC 3.76 M/mm3 (3.60-5.2); RDW 16.2 % (11.6-15.6); WHITE BLOOD COUNT 11.4 K/mm3 (4.0-10.0)
[2024-05-06 11:22] LABS: POTASSIUM 4.2 mmol/L (3.5-5.1)
[2024-05-06 11:25] LABS: CALCIUM 8.9 mg/dL (8.5-10.1)
[2024-05-06 11:29] LABS: CREATININE 0.6 mg/dL (0.55-1.3)
[2024-05-07] MEDS ORDERED: metoPROLOL SUCCINATE 25 MG TAB.SR.24H (FP) PO SCH (10:12)
[2024-05-07 11:26] LABS: HEMATOCRIT 33.1 % (32.4-45.2); HEMOGLOBIN 10.4 GM/dL (10.7-15.3); MCH 29.7 pg (25.7-33.7); MCHC 31.3 g/dl (32.0-36.0); MEAN CELL VOLUME 94.8 fl (80-96); MEAN PLT VOLUME 8.3 fl (7.5-11.1); PLATELET COUNT 245 10^3/uL (134-434); RBC 3.49 M/mm3 (3.60-5.2); RDW 15.9 % (11.6-15.6)
[2024-05-07 11:53] LABS: CHLORIDE 99 mmol/L (98-107); POTASSIUM 4.1 mmol/L (3.5-5.1); SODIUM 141 mmol/L (136-145)
[2024-05-07 11:58] LABS: ALBUMIN 2.1 g/dl (3.4-5.0); ANION GAP 4 mmol/L (4-13); BLOOD UREA NITROGEN 27.2 mg/dL (7-18); CALCIUM 8.7 mg/dL (8.5-10.1); CO2 38 mmol/L (21-32); GLUCOSE,RANDOM 151 mg/dL (74-106)
[2024-05-07 12:01] LABS: CREATININE 0.7 mg/dL (0.55-1.3); PHOSPHOROUS 2.3 mg/dL (2.5-4.9); SGOT/AST 16 U/L (15-37)
[2024-05-07 12:02] LABS: BILIRUBIN,TOTAL 0.5 mg/dL (0.2-1); SGPT/ALT < 6 U/L (13-61); TOT PROT 5.4 g/dl (6.4-8.2)
[2024-05-07 12:04] LABS: ALK PHOS 89 U/L (45-117)
[2024-05-07] MEDS: ACETAMINOPHEN 1000 MG/100 ML BAG IVPB ONE (22:08)
[2024-05-07] MEDS: PANTOPRAZOLE 40 MG TABLET PO SCH (22:08)
[2024-05-07] MEDS: ACETAMINOPHEN 500 MG TABLET (FP) PO ONE (22:31)
[2024-05-08 10:43] LABS: BASO % 0.9 % (0-2.0); EOS % 0.4 % (0-4.5); HEMATOCRIT 33.6 % (32.4-45.2); HEMOGLOBIN 10.4 GM/dL (10.7-15.3); LYMPH % 25.1 % (8-40); MCH 29.5 pg (25.7-33.7); MCHC 30.8 g/dl (32.0-36.0); MEAN CELL VOLUME 95.8 fl (80-96); MONO % 7.3 % (3.8-10.2); NEUT % 66.3 % (42.8-82.8); PLATELET COUNT 252 10^3/uL (134-434); RBC 3.51 M/mm3 (3.60-5.2); WHITE BLOOD COUNT 12.7 K/mm3 (4.0-10.0)
[2024-05-08] MEDS: metoPROLOL SUCCINATE 25 MG TAB.SR.24H (FP) PO SCH (10:56)
[2024-05-08 11:06] LABS: POTASSIUM 4.2 mmol/L (3.5-5.1)
[2024-05-08 11:11] LABS: ALBUMIN 2.2 g/dl (3.4-5.0); BLOOD UREA NITROGEN 24.9 mg/dL (7-18); CALCIUM 8.7 mg/dL (8.5-10.1)
[2024-05-08 11:14] LABS: CREATININE 0.6 mg/dL (0.55-1.3)
[2024-05-08 11:16] LABS: BILIRUBIN,TOTAL 0.5 mg/dL (0.2-1); TOT PROT 5.6 g/dl (6.4-8.2)
[2024-05-08] MEDS: MIDODRINE HCL 5 MG TABLET PO SCH (13:15)
[2024-05-08] MEDS: POLYETHYLENE GLYCOL (HEALTHYLAX) 3350 17 GM PACKET PO ONE (16:58)
[2024-05-08] MEDS: SENNOSIDES 8.8 MG/5 ML SYRUP PO SCH (22:11)
[2024-05-09] MEDS: POLYETHYLENE GLYCOL (HEALTHYLAX) 3350 17 GM PACKET PO SCH (10:41)
[2024-05-09 11:57] LABS: BASO % 0.4 % (0-2.0); EOS % 0.4 % (0-4.5); HEMATOCRIT 31.4 % (32.4-45.2); HEMOGLOBIN 9.8 GM/dL (10.7-15.3); LYMPH % 25.5 % (8-40); MCH 30.2 pg (25.7-33.7); MCHC 31.3 g/dl (32.0-36.0); MEAN CELL VOLUME 96.4 fl (80-96); MONO % 5.7 % (3.8-10.2); PLATELET COUNT 225 10^3/uL (134-434); RBC 3.26 M/mm3 (3.60-5.2); RDW 16.1 % (11.6-15.6); WHITE BLOOD COUNT 10.7 K/mm3 (4.0-10.0)
[2024-05-09 12:28] LABS: ALBUMIN 2.2 g/dl (3.4-5.0)
[2024-05-09 12:29] LABS: BLOOD UREA NITROGEN 19.9 mg/dL (7-18); CO2 42 mmol/L (21-32)
[2024-05-09 12:30] LABS: GLUCOSE,RANDOM 82 mg/dL (74-106)
[2024-05-09 12:32] LABS: SGPT/ALT < 6 U/L (13-61)
[2024-05-09 12:33] LABS: CREATININE 0.5 mg/dL (0.55-1.3); SGOT/AST 14 U/L (15-37)
[2024-05-09 12:34] LABS: BILIRUBIN,TOTAL 0.6 mg/dL (0.2-1); TOT PROT 5.6 g/dl (6.4-8.2)
[2024-05-09 12:35] LABS: ALK PHOS 90 U/L (45-117)
[2024-05-09 12:57] LABS: CALCIUM 8.7 mg/dL (8.5-10.1)
[2024-05-09 13:10] LABS: CHLORIDE 99 mmol/L (98-107); POTASSIUM 4.4 mmol/L (3.5-5.1); SODIUM 143 mmol/L (136-145)
[2024-05-09 13:11] LABS: ANION GAP 2 mmol/L (4-13)
[2024-05-09] MEDS ORDERED: PANTOPRAZOLE SODIUM 40 MG VIAL IVPUSH SCH (15:47)
[2024-05-09] MEDS: FAMOTIDINE 20 MG/2.5 ML ORAL LIQUID PO SCH (17:01)
[2024-05-09] MEDS: PANTOPRAZOLE SOD 40 MG SUSPENSION PACKET PO SCH (17:01)
[2024-05-09] MEDS: METOPROLOL TARTRATE 25 MG TABLET (FP) PO SCH (17:07)
[2024-05-10] MEDS ORDERED: METOPROLOL TARTRATE 25 MG TABLET (FP) PO SCH (09:20)
[2024-05-10] MEDS: MIDODRINE HCL 5 MG TABLET PO SCH (10:35)
[2024-05-10] MEDS: PANTOPRAZOLE SOD 40 MG SUSPENSION PACKET PO SCH (10:37)
[2024-05-10 12:36] VITALS: BP 98/64; PULSE 94; RESP 18; TEMP 98.6
== END 2024-05-10 12:01 | DRG 871 ==
LOC: JER 17:12 → JERBED 20:44 → JICU 04-29 04:05 → J4W 05-01 20:43 → J6S 05-04 17:19
PROVIDERS: ADMIT Internal Medicine Pulmonary Disease; ATTEND Internal Medicine
DX: A41.89 Other specified sepsis (principal); G93.41 Metabolic encephalopathy; I50.43 Acute on chronic combined systolic (congestive) and diastolic (congestive) heart failure; J18.9 Pneumonia, unspecified organism; R65.21 Severe sepsis with septic shock; J96.01 Acute respiratory failure with hypoxia; J96.02 Acute respiratory failure with hypercapnia; N17.9 Acute kidney failure, unspecified; N39.0 Urinary tract infection, site not specified; I11.0 Hypertensive heart disease with heart failure; I73.9 Peripheral vascular disease, unspecified; R13.10 Dysphagia, unspecified; E87.70 Fluid overload, unspecified; E66.9 Obesity, unspecified; Z68.34 Body mass index [BMI] 34.0-34.9, adult; R74.01 Elevation of levels of liver transaminase levels; I48.91 Unspecified atrial fibrillation; D64.9 Anemia, unspecified; D72.829 Elevated white blood cell count, unspecified; I95.9 Hypotension, unspecified; B96.20 Unspecified Escherichia coli [E. coli] as the cause of diseases classified elsewhere; Z85.3 Personal history of malignant neoplasm of breast
CPT/HCPCS: 0241U-QW; 36415; 36600; 71045-TC-FY; 74230-TC-FY; 80048; 80053; 81003; 82272; 82607; 82728; 82746; 82803; 82962; 83540; 83550; 83605; 83735; 84100; 84436; 84443; 84479; 84484; 85025; 85027; 85045; 85610; 85730; 86803; 86850; 86900; 86901; 87040; 87086; 87186; 87389; 87899; 90677; 92611-GN; 93005; 93010; 93306-TC; 93970-TC; 97162-GP; 99291; G0009; J0131; J0282